=== PATIENT | male | born 1985 | race Caucasian/White ===

== ENCOUNTER 2019-03-20 23:54 | Inpatient (IN) | payer MEDICAID ==
[~2019-03-20] VITALS: Ht 177.8 cm; Wt 90.3 kg
[~2019-03-20 23:54] MED LIST: ARIP15TA2 PO; ARIP5TAB8 PO; DOCU-275 PO; GABA-531 PO; HYDR-4061 PO; LEVE500T53 PO; LEVO125 PO; OMEP20 PO; PHEN100C23 PO
[2019-03-21] MEDS ORDERED: GABA600T10 PO (00:07)
[2019-03-21] MEDS ORDERED: LIDOCAINE 5% TRANSDERMAL PATCH TD ONE (01:15)
[2019-03-21 02:05] LABS: BASOPHILS % (AUTO) 0.7 % (0.0-2.0); EOSINOPHILS % (AUTO) 4.5 % (1.0-6.0); HEMATOCRIT 38.6 % (41-53); HEMOGLOBIN 12.7 g/dL (13.5-17.5); LYMPHOCYTES # (AUTO) 2.4 K/uL (1.0-4.8); LYMPHOCYTES % (AUTO) 26.8 % (22.0-44.0); MEAN CORPUSCULAR HEMOGLOBIN 27.6 pg (26.0-34.0); MEAN CORPUSCULAR HGB CONC 32.9 G/dL (31.0-37.0); MEAN CORPUSCULAR VOLUME 84 fL (80-100); MONOCYTES # (AUTO) 0.7 K/uL (0.1-1.0); MONOCYTES % (AUTO) 7.6 % (2.0-9.0); NEUTROPHILS # (AUTO) 5.4 K/uL (1.8-7.7); NEUTROPHILS % (AUTO) 60.4 % (40.0-70.0); PLATELET COUNT (AUTO) 301 K/uL (150-450)
[2019-03-21 02:24] LABS: ALANINE AMINOTRANSFERASE 39 U/L (12-78); ALBUMIN 3.4 g/dL (3.4-5.0); ALKALINE PHOSPHATASE 103 U/L (46-116); ANION GAP 8 mmol/L (8-16); ASPARTATE AMINOTRANSFERASE 19 U/L (15-37); BILIRUBIN,TOTAL 0.3 mg/dL (0.1-1.0); CALCIUM, TOTAL 8.9 mg/dL (8.8-10.5); CARBON DIOXIDE 26 mmol/L (22-29); CHLORIDE 108 mmol/L (98-107); CREATININE 0.92 mg/dL (0.60-1.30); GLOMERULAR FILTR. RATE CALC > 60 mL/min (>60); GLUCOSE,RANDOM 118 mg/dL (70-110); POTASSIUM 4.3 mmol/L (3.5-5.1); SODIUM SERUM 142 mmol/L (136-145); TOTAL PROTEIN, SERUM 6.6 g/dL (6.4-8.2); UREA NITROGEN, BLOOD 22 mg/dL (7-18)
[2019-03-21] MEDS ORDERED: KETOROLAC TROMETHAMINE 30 MG/ML VIAL IM ONE (02:45)
[2019-03-21 02:55] LABS: SALICYLATE < 2.8 mg/dL (2.8-20.0)
[2019-03-21 03:00] LABS: AMPHET/METH SCREEN,URINE NEGATIVE (NEGATIVE); BARBITURATE SCREEN, URINE NEGATIVE (NEGATIVE); BENZODIAZEPINES SCREEN,URINE NEGATIVE (NEGATIVE); CANNABINOID SCREEN,URINE NEGATIVE (NEGATIVE); COCAINE SCREEN,URINE NEGATIVE (NEGATIVE); METHADONE SCREEN, URINE NEGATIVE (NEGATIVE); OPIATE SCREEN,URINE NEGATIVE (NEGATIVE)
[2019-03-21 03:08] LABS: PHENCYCLIDINE SCREEN,URINE NEGATIVE (NEGATIVE)
[2019-03-21 03:08] LABS: ACETAMINOPHEN < 2 mcg/mL (10-30)
[2019-03-21 16:04] VITALS: BP 147/83
[2019-03-21] MEDS: GABAPENTIN 300 MG CAPSULE PO SCH (17:32)
[2019-03-21] MEDS: BACITRACIN 28.4 GM OINTMENT TP SCH (17:32)
[2019-03-21] MEDS: -LIDODERM PATCH NOTE- MISC SCH (20:16)
[2019-03-21] MEDS: ZOLPIDEM TARTRATE 10 MG TABLET PO PRN (20:17)
[2019-03-22] MEDS: LEVOTHYROXINE SODIUM 125 MCG TABLET PO SCH (06:43)
[2019-03-22] MEDS: GABAPENTIN 300 MG CAPSULE PO SCH ×3 (09:17→16:38)
[2019-03-22 09:21] VITALS: BP 142/97
[2019-03-22] MEDS: LIDOCAINE 5% TRANSDERMAL PATCH TD SCH (09:24)
[2019-03-22] MEDS: BACITRACIN 28.4 GM OINTMENT TP SCH ×2 (09:25→16:38)
[2019-03-22 10:26] LABS: CHOL/HDL RATIO 2.5 (4.2-7.3); CHOLESTEROL 124 mg/dL (131-200); HDL CHOLESTEROL 49 mg/dL (40-60); LDL CHOL (CALC.) 63 mg/dL (0-130); TRIGLYCERIDES 58 mg/dL (15-150)
[2019-03-22 19:53] VITALS: BP 138/92
[2019-03-22] MEDS: -LIDODERM PATCH NOTE- MISC SCH (21:34)
[2019-03-23 02:25] VITALS: BP 138/85
[2019-03-23] MEDS: ZOLPIDEM TARTRATE 10 MG TABLET PO PRN ×2 (02:35→21:28)
[2019-03-23] MEDS: HALOPERIDOL 5 MG TABLET PO PRN (02:35)
[2019-03-23] MEDS: LEVOTHYROXINE SODIUM 125 MCG TABLET PO SCH (07:05)
[2019-03-23] MEDS: GABAPENTIN 300 MG CAPSULE PO SCH ×3 (08:28→16:23)
[2019-03-23] MEDS: ARIPiprazole 5 MG TABLET PO SCH (08:28)
[2019-03-23] MEDS: LIDOCAINE 5% TRANSDERMAL PATCH TD SCH (08:38)
[2019-03-23 08:45] VITALS: BP 127/79
[2019-03-23] MEDS: BACITRACIN 28.4 GM OINTMENT TP SCH ×2 (10:13→16:23)
[2019-03-23 16:25] VITALS: BP 124/78
[2019-03-23] MEDS: LORazepam 2 MG TABLET PO PRN (17:11)
[2019-03-23] MEDS: -LIDODERM PATCH NOTE- MISC SCH (20:09)
[2019-03-24] MEDS: LEVOTHYROXINE SODIUM 125 MCG TABLET PO SCH (06:33)
[2019-03-24] MEDS: GABAPENTIN 300 MG CAPSULE PO SCH ×3 (08:25→16:22)
[2019-03-24] MEDS: LIDOCAINE 5% TRANSDERMAL PATCH TD SCH (08:34)
[2019-03-24] MEDS: ARIPiprazole 5 MG TABLET PO SCH (08:36)
[2019-03-24] MEDS: LORazepam 2 MG TABLET PO PRN ×2 (08:36→18:25)
[2019-03-24 08:40] LABS: FREE T4 (FREE THYROXINE) 0.89 ng/dL (0.76-1.46); THYROID STIMULATING HORMONE 2.84 uIU/mL (0.36-3.74)
[2019-03-24] MEDS: BACITRACIN 28.4 GM OINTMENT TP SCH ×2 (09:26→16:22)
[2019-03-24 09:52] VITALS: BP 120/83
[2019-03-24 17:05] VITALS: BP 145/95
[2019-03-24] MEDS: HALOPERIDOL 5 MG TABLET PO PRN (18:25)
[2019-03-24] MEDS: -LIDODERM PATCH NOTE- MISC SCH (20:55)
[2019-03-24] MEDS ORDERED: LACTULOSE 20 GM/30 ML SOLUTION UDCUP PO PRN (21:30)
[2019-03-24] MEDS ORDERED: DOCUSATE SODIUM 250 MG CAPSULE PO PRN (21:30)
[2019-03-24] MEDS ORDERED: BISACODYL 5 MG EC TABLET PO PRN (21:30)
[2019-03-24] MEDS ORDERED: MAGNESIUM HYDROXIDE SUSPENSION 30 ML UDCUP PO PRN (21:30)
[2019-03-25] MEDS: TraMADol HCL 50 MG TABLET PO PRN ×4 (01:48→20:20)
[2019-03-25] MEDS: LEVOTHYROXINE SODIUM 125 MCG TABLET PO SCH (06:47)
[2019-03-25] MEDS: ARIPiprazole 5 MG TABLET PO SCH (08:05)
[2019-03-25] MEDS: BACITRACIN 28.4 GM OINTMENT TP SCH ×2 (08:06→16:57)
[2019-03-25] MEDS: GABAPENTIN 300 MG CAPSULE PO SCH ×3 (08:06→16:57)
[2019-03-25] MEDS: LORazepam 2 MG TABLET PO PRN (08:08)
[2019-03-25] MEDS: LIDOCAINE 5% TRANSDERMAL PATCH TD SCH (09:00)
[2019-03-25 09:38] VITALS: BP 158/98
[2019-03-25 14:10] VITALS: BP 129/88
[2019-03-25 17:53] VITALS: BP 121/71
[2019-03-25 20:05] VITALS: BP 124/74
[2019-03-25] MEDS: CLOTRIMAZOLE 1% 15 GM CREAM TP SCH (20:17)
[2019-03-25] MEDS: -LIDODERM PATCH NOTE- MISC SCH (20:18)
[2019-03-25] MEDS ORDERED: QUEtiapine FUMARATE 200 MG TABLET PO SCH (21:00)
[2019-03-26 05:14] VITALS: BP 109/66
[2019-03-26] MEDS: TraMADol HCL 50 MG TABLET PO PRN ×3 (05:19→18:32)
[2019-03-26] MEDS: LEVOTHYROXINE SODIUM 125 MCG TABLET PO SCH (06:48)
[2019-03-26] MEDS: ARIPiprazole 5 MG TABLET PO SCH (08:13)
[2019-03-26] MEDS: GABAPENTIN 400 MG CAPSULE PO SCH ×3 (08:13→16:11)
[2019-03-26] MEDS: DIVALPROEX SODIUM 500 MG DR TABLET PO SCH ×2 (08:17→16:24)
[2019-03-26] MEDS: LIDOCAINE 5% TRANSDERMAL PATCH TD SCH (08:19)
[2019-03-26] MEDS: CLOTRIMAZOLE 1% 15 GM CREAM TP SCH ×3 (08:37→16:41)
[2019-03-26] MEDS: BACITRACIN 28.4 GM OINTMENT TP SCH ×2 (08:37→16:11)
[2019-03-26] MEDS ORDERED: QUEtiapine FUMARATE 100 MG TABLET PO SCH (09:00)
[2019-03-26 16:42] VITALS: BP 148/78
[2019-03-26] MEDS: -LIDODERM PATCH NOTE- MISC SCH ×2 (20:14→20:49)
[2019-03-27] MEDS: LEVOTHYROXINE SODIUM 125 MCG TABLET PO SCH (06:46)
[2019-03-27] MEDS: BACITRACIN 28.4 GM OINTMENT TP SCH ×2 (09:00→16:44)
[2019-03-27] MEDS: CLOTRIMAZOLE 1% 15 GM CREAM TP SCH ×2 (09:00→17:53)
[2019-03-27] MEDS: LIDOCAINE 5% TRANSDERMAL PATCH TD SCH (09:00)
[2019-03-27] MEDS: GABAPENTIN 400 MG CAPSULE PO SCH ×3 (09:14→16:32)
[2019-03-27] MEDS: ARIPiprazole 15 MG TABLET PO SCH (09:14)
[2019-03-27 09:18] VITALS: BP 134/83
[2019-03-27] MEDS: TraMADol HCL 50 MG TABLET PO PRN ×3 (09:18→22:12)
[2019-03-27] MEDS ORDERED: LORazepam 2 MG/ML VIAL ONE (12:50)
[2019-03-27] MEDS ORDERED: DiphenhydrAMINE HCL 50 MG/ML VIAL IM ONE (13:00)
[2019-03-27] MEDS ORDERED: LORazepam 2 MG/ML VIAL IM ONE (13:00)
[2019-03-27] MEDS ORDERED: HALOPERIDOL LACTATE 5 MG/ML VIAL IM ONE (13:00)
[2019-03-27 15:50] VITALS: BP 147/84
[2019-03-27] MEDS: LORazepam 2 MG TABLET PO PRN (16:32)
[2019-03-27 16:49] VITALS: BP 147/84
[2019-03-27] MEDS: -LIDODERM PATCH NOTE- MISC SCH (20:30)
[2019-03-27] MEDS: ZOLPIDEM TARTRATE 10 MG TABLET PO PRN (22:12)
[2019-03-28] MEDS: ACETAMINOPHEN 500 MG TABLET PO PRN (01:28)
[2019-03-28] MEDS: TraMADol HCL 50 MG TABLET PO PRN ×4 (04:24→21:58)
[2019-03-28 04:33] VITALS: BP 135/76
[2019-03-28] MEDS: LEVOTHYROXINE SODIUM 125 MCG TABLET PO SCH (07:06)
[2019-03-28] MEDS: GABAPENTIN 400 MG CAPSULE PO SCH ×3 (08:42→16:38)
[2019-03-28] MEDS: ARIPiprazole 15 MG TABLET PO SCH (08:42)
[2019-03-28] MEDS: BACITRACIN 28.4 GM OINTMENT TP SCH ×2 (08:46→16:42)
[2019-03-28] MEDS: CLOTRIMAZOLE 1% 15 GM CREAM TP SCH ×2 (08:46→16:43)
[2019-03-28] MEDS: LIDOCAINE 5% TRANSDERMAL PATCH TD SCH (08:47)
[2019-03-28 10:00] VITALS: BP 109/70
[2019-03-28 15:51] VITALS: BP 150/108
[2019-03-28] MEDS: LORazepam 2 MG TABLET PO PRN (16:38)
[2019-03-28] MEDS: -LIDODERM PATCH NOTE- MISC SCH (22:34)
[2019-03-29 02:28] VITALS: BP 140/95
[2019-03-29] MEDS: ACETAMINOPHEN 500 MG TABLET PO PRN (02:32)
[2019-03-29 03:45] VITALS: BP 135/95
[2019-03-29] MEDS: TraMADol HCL 50 MG TABLET PO PRN ×4 (04:02→20:13)
[2019-03-29] MEDS: LEVOTHYROXINE SODIUM 125 MCG TABLET PO SCH (06:21)
[2019-03-29 08:01] VITALS: BP 138/90
[2019-03-29] MEDS: LIDOCAINE 5% TRANSDERMAL PATCH TD SCH (08:05)
[2019-03-29] MEDS: ARIPiprazole 15 MG TABLET PO SCH (08:07)
[2019-03-29] MEDS: BACITRACIN 28.4 GM OINTMENT TP SCH ×2 (08:07→16:52)
[2019-03-29] MEDS: LORazepam 2 MG TABLET PO PRN ×3 (08:07→17:21)
[2019-03-29] MEDS: GABAPENTIN 400 MG CAPSULE PO SCH ×3 (08:07→16:53)
[2019-03-29] MEDS: CLOTRIMAZOLE 1% 15 GM CREAM TP SCH ×2 (08:08→16:52)
[2019-03-29] MEDS ORDERED: BACI3.5O22 TP (14:50)
[2019-03-29] MEDS ORDERED: CLOT21CR TP (14:50)
[2019-03-29] MEDS: -LIDODERM PATCH NOTE- MISC SCH (16:52)
[2019-03-29 16:54] VITALS: BP 127/72
[2019-03-30 02:02] VITALS: BP 118/70
[2019-03-30] MEDS: TraMADol HCL 50 MG TABLET PO PRN ×3 (02:05→17:00)
[2019-03-30] MEDS: LEVOTHYROXINE SODIUM 125 MCG TABLET PO SCH (06:58)
[2019-03-30] MEDS: ARIPiprazole 15 MG TABLET PO SCH (07:59)
[2019-03-30] MEDS: CLOTRIMAZOLE 1% 15 GM CREAM TP SCH ×2 (08:00→16:35)
[2019-03-30] MEDS: GABAPENTIN 400 MG CAPSULE PO SCH ×3 (08:02→15:58)
[2019-03-30] MEDS: BACITRACIN 28.4 GM OINTMENT TP SCH ×2 (08:03→16:35)
[2019-03-30] MEDS: LIDOCAINE 5% TRANSDERMAL PATCH TD SCH (08:09)
[2019-03-30 16:05] VITALS: BP 145/90
[2019-03-30] MEDS ORDERED: GABA-533 PO (18:54)
[2019-03-30] MEDS ORDERED: ARIP15TA2 PO (18:54)
[2019-03-30] MEDS: -LIDODERM PATCH NOTE- MISC SCH (20:08)
[2019-03-30] MEDS: NICOTINE 14 MG/24 HOUR PATCH TD SCH (20:48)
[2019-03-30] MEDS: ACETAMINOPHEN 500 MG TABLET PO PRN (22:17)
[2019-03-31] MEDS: TraMADol HCL 50 MG TABLET PO PRN ×3 (01:02→16:15)
[2019-03-31 01:04] VITALS: BP 126/82
[2019-03-31] MEDS: LEVOTHYROXINE SODIUM 125 MCG TABLET PO SCH (06:51)
[2019-03-31] MEDS: LIDOCAINE 5% TRANSDERMAL PATCH TD SCH (09:00)
[2019-03-31] MEDS: GABAPENTIN 400 MG CAPSULE PO SCH ×3 (09:16→16:16)
[2019-03-31] MEDS: NICOTINE 14 MG/24 HOUR PATCH TD SCH (09:16)
[2019-03-31] MEDS: CLOTRIMAZOLE 1% 15 GM CREAM TP SCH ×2 (09:17→16:16)
[2019-03-31] MEDS: ARIPiprazole 15 MG TABLET PO SCH (09:17)
[2019-03-31] MEDS: BACITRACIN 28.4 GM OINTMENT TP SCH (09:18)
[2019-03-31 13:00] VITALS: BP 138/91
[2019-03-31 16:09] VITALS: BP 142/90
[2019-03-31] MEDS: -LIDODERM PATCH NOTE- MISC SCH (21:00)
[2019-03-31] MEDS: LORazepam 2 MG TABLET PO PRN (21:12)
[2019-04-01] MEDS: TraMADol HCL 50 MG TABLET PO PRN ×3 (01:34→14:40)
[2019-04-01] MEDS: LEVOTHYROXINE SODIUM 125 MCG TABLET PO SCH (06:59)
[2019-04-01] MEDS: ACETAMINOPHEN 500 MG TABLET PO PRN (07:00)
[2019-04-01] MEDS: ARIPiprazole 15 MG TABLET PO SCH (07:47)
[2019-04-01] MEDS: GABAPENTIN 400 MG CAPSULE PO SCH ×3 (07:47→16:30)
[2019-04-01] MEDS: HALOPERIDOL 5 MG TABLET PO PRN (07:47)
[2019-04-01] MEDS: LORazepam 2 MG TABLET PO PRN ×2 (07:47→15:40)
[2019-04-01] MEDS: NICOTINE 14 MG/24 HOUR PATCH TD SCH (07:54)
[2019-04-01] MEDS: CLOTRIMAZOLE 1% 15 GM CREAM TP SCH ×2 (07:54→16:30)
[2019-04-01] MEDS: LIDOCAINE 5% TRANSDERMAL PATCH TD SCH (07:54)
[2019-04-01 16:00] VITALS: BP 127/79
[2019-04-01] MEDS ORDERED: LIDO700A15 TD (17:18)
[2019-04-01] MEDS ORDERED: NICO1PAT49 TD (17:20)
== END 2019-04-01 18:00 | disposition home or self-care (01) | DRG 885 ==
LOC: EMS 23:54 → MERGE 03-21 13:24 → 3EC 03-21 13:24
PROVIDERS: ADMIT Psychiatry & Neurology Child & Adolescent Psychiatry; ATTEND Psychiatry & Neurology Psychiatry
DX: F25.9 Schizoaffective disorder, unspecified (principal); R45.851 Suicidal ideations; D64.9 Anemia, unspecified; E03.9 Hypothyroidism, unspecified; F15.10 Other stimulant abuse, uncomplicated; F90.9 Attention-deficit hyperactivity disorder, unspecified type; G89.29 Other chronic pain; M54.9 Dorsalgia, unspecified; Z90.49 Acquired absence of other specified parts of digestive tract; Z82.49 Family history of ischemic heart disease and other diseases of the circulatory system
CPT/HCPCS: 80074; 84439; 84443; 86804; G0480; G0481; J1200; J1630; J1885; J2060

== ENCOUNTER 2019-04-10 14:06 | Inpatient (IN) | payer MEDICAID, OTHER ==
[~2019-04-10] VITALS: Ht 175.3 cm; Wt 88.9 kg
[~2019-04-10 14:06] MED LIST changes: -ARIP5TAB8 PO; +GABA-533 PO; -HYDR-4061 PO; +LIDO700A15 TD; +NICO1PAT49 TD
[2019-04-10] MEDS ORDERED: OMEP20 PO (14:33)
[2019-04-10] MEDS ORDERED: PHEN50 PO (14:33)
[2019-04-10] MEDS ORDERED: GABA-531 PO (14:33)
[2019-04-10] MEDS ORDERED: ARIP10TA8 PO (14:33)
[2019-04-10] MEDS ORDERED: LEVE250T55 PO (14:33)
[2019-04-10 14:34] LABS: BASOPHILS % (AUTO) 0.6 % (0.0-2.0); EOSINOPHILS % (AUTO) 1.4 % (1.0-6.0); HEMATOCRIT 43.1 % (41-53); HEMOGLOBIN 14.3 g/dL (13.5-17.5); LYMPHOCYTES # (AUTO) 1.7 K/uL (1.0-4.8); LYMPHOCYTES % (AUTO) 16.9 % (22.0-44.0); MEAN CORPUSCULAR HEMOGLOBIN 27.6 pg (26.0-34.0); MEAN CORPUSCULAR HGB CONC 33.1 G/dL (31.0-37.0); MEAN CORPUSCULAR VOLUME 83 fL (80-100); MONOCYTES # (AUTO) 0.9 K/uL (0.1-1.0); MONOCYTES % (AUTO) 9.1 % (2.0-9.0); NEUTROPHILS # (AUTO) 7.2 K/uL (1.8-7.7); PLATELET COUNT (AUTO) 295 K/uL (150-450); RED BLOOD CELL COUNT(AUTO) 5.17 MIL/uL (4.50-5.90); RED CELL DISTRIBUTION WIDTH 14.8 % (11.5-14.5)
[2019-04-10 14:51] LABS: ANION GAP 10 mmol/L (8-16); CALCIUM, TOTAL 9.5 mg/dL (8.8-10.5); CARBON DIOXIDE 27 mmol/L (22-29); CHLORIDE 103 mmol/L (98-107); CREATININE 0.84 mg/dL (0.60-1.30); GLOMERULAR FILTR. RATE CALC > 60 mL/min (>60); GLUCOSE,RANDOM 94 mg/dL (70-110); POTASSIUM 3.9 mmol/L (3.5-5.1); SODIUM SERUM 140 mmol/L (136-145); UREA NITROGEN, BLOOD 21 mg/dL (7-18)
[2019-04-10 14:58] LABS: ALANINE AMINOTRANSFERASE 56 U/L (12-78); ALBUMIN 4.4 g/dL (3.4-5.0); ALKALINE PHOSPHATASE 118 U/L (46-116); ASPARTATE AMINOTRANSFERASE 39 U/L (15-37); BILIRUBIN,TOTAL 0.8 mg/dL (0.1-1.0); TOTAL PROTEIN, SERUM 7.8 g/dL (6.4-8.2)
[2019-04-10 15:54] LABS: PHENYTOIN (DILANTIN) < 0.5 mcg/mL (10.0-20.0)
[2019-04-10] MEDS ORDERED: ZOLPIDEM TARTRATE 10 MG TABLET PO PRN (17:15)
[2019-04-10] MEDS ORDERED: LORazepam 2 MG TABLET PO ONE (17:15)
[2019-04-10] MEDS ORDERED: HALOPERIDOL 5 MG TABLET PO PRN (17:15)
[2019-04-10] MEDS ORDERED: HALOPERIDOL 5 MG TABLET PO ONE (17:15)
[2019-04-10] MEDS ORDERED: PHENY100 PO (17:25)
[2019-04-10] MEDS ORDERED: GABA-533 PO (17:25)
[2019-04-10] MEDS ORDERED: ARIP15TA2 PO (17:25)
[2019-04-10] MEDS ORDERED: LEVE500T53 PO (17:25)
[2019-04-10] MEDS: DiphenhydrAMINE HCL 25 MG CAPSULE PO ONE ×2 (17:34→18:24)
[2019-04-10 21:07] VITALS: BP 124/79
[2019-04-10] MEDS ORDERED: IBUPROFEN 400 MG TABLET PO PRN (21:45)
[2019-04-10] MEDS: LevETIRAcetam 500 MG TABLET PO SCH (21:57)
[2019-04-10] MEDS: GABAPENTIN 400 MG CAPSULE PO SCH (21:57)
[2019-04-11] MEDS: ARIPiprazole 15 MG TABLET PO SCH (08:25)
[2019-04-11] MEDS: GABAPENTIN 400 MG CAPSULE PO SCH ×3 (08:30→16:31)
[2019-04-11] MEDS: PHENYTOIN 50 MG CHEWABLE TABLET PO SCH ×3 (08:33→17:50)
[2019-04-11] MEDS: LevETIRAcetam 500 MG TABLET PO SCH ×2 (08:33→16:31)
[2019-04-11] MEDS: LORazepam 2 MG TABLET PO PRN (16:31)
[2019-04-11 16:48] VITALS: BP 111/62
[2019-04-12 08:44] VITALS: BP 115/66
[2019-04-12] MEDS: ARIPiprazole 15 MG TABLET PO SCH (08:59)
[2019-04-12] MEDS: GABAPENTIN 400 MG CAPSULE PO SCH ×3 (08:59→16:08)
[2019-04-12] MEDS: PHENYTOIN 50 MG CHEWABLE TABLET PO SCH ×3 (09:00→16:08)
[2019-04-12] MEDS: LevETIRAcetam 500 MG TABLET PO SCH ×2 (09:00→16:09)
[2019-04-12] MEDS: LORazepam 2 MG TABLET PO PRN (16:08)
[2019-04-12] MEDS ORDERED: PHEN50 PO ×2 (16:51→16:52)
[2019-04-12 17:30] VITALS: BP 115/66
== END 2019-04-12 18:00 | disposition home or self-care (01) | DRG 885 ==
LOC: EMS 14:06 → EDBD 14:06 → B3A 18:15 → 3EC 18:15 → UNDOADMIN 18:15
PROVIDERS: ADMIT Psychiatry & Neurology Psychiatry; ATTEND Psychiatry & Neurology Psychiatry
DX: F25.9 Schizoaffective disorder, unspecified (principal); R45.851 Suicidal ideations; E03.9 Hypothyroidism, unspecified; Z88.8 Allergy status to other drugs, medicaments and biological substances; Z88.6 Allergy status to analgesic agent
CPT/HCPCS: 87081; G0480; G0482

== ENCOUNTER 2019-05-06 12:40 | Inpatient (IN) | payer MEDICAID, OTHER ==
[~2019-05-06] VITALS: Ht 177.8 cm; Wt 94.0 kg
[~2019-05-06 12:40] MED LIST changes: +PHEN50 PO
[2019-05-06 16:02] LABS: BASOPHILS % (AUTO) 0.8 % (0.0-2.0); HEMATOCRIT 41.6 % (41-53); HEMOGLOBIN 13.7 g/dL (13.5-17.5); LYMPHOCYTES % (AUTO) 14.8 % (22.0-44.0); MEAN CORPUSCULAR HEMOGLOBIN 27.8 pg (26.0-34.0); MEAN CORPUSCULAR HGB CONC 32.9 G/dL (31.0-37.0); MEAN CORPUSCULAR VOLUME 85 fL (80-100); MONOCYTES # (AUTO) 1.4 K/uL (0.1-1.0); MONOCYTES % (AUTO) 10.3 % (2.0-9.0); NEUTROPHILS # (AUTO) 9.5 K/uL (1.8-7.7); NEUTROPHILS % (AUTO) 70.1 % (40.0-70.0); PLATELET COUNT (AUTO) 274 K/uL (150-450); RED BLOOD CELL COUNT(AUTO) 4.92 MIL/uL (4.50-5.90)
[2019-05-06 16:10] LABS: ANION GAP 15 mmol/L (8-16); CARBON DIOXIDE 21 mmol/L (22-29); CHLORIDE 100 mmol/L (98-107); CREATININE 1.32 mg/dL (0.60-1.30); GLOMERULAR FILTR. RATE CALC > 60 mL/min (>60); GLUCOSE,RANDOM 83 mg/dL (70-110); POTASSIUM 3.4 mmol/L (3.5-5.1); SODIUM SERUM 136 mmol/L (136-145); UREA NITROGEN, BLOOD 19 mg/dL (7-18)
[2019-05-06 16:18] LABS: ALANINE AMINOTRANSFERASE 63 U/L (12-78); ALBUMIN 4.1 g/dL (3.4-5.0); ALKALINE PHOSPHATASE 100 U/L (46-116); ASPARTATE AMINOTRANSFERASE 44 U/L (15-37); BILIRUBIN,TOTAL 0.5 mg/dL (0.1-1.0); TOTAL PROTEIN, SERUM 7.6 g/dL (6.4-8.2)
[2019-05-06] MEDS ORDERED: HALOPERIDOL 5 MG TABLET PO PRN (19:30)
[2019-05-07 01:00] VITALS: BP 156/91
[2019-05-07] MEDS: LORazepam 2 MG TABLET PO PRN (01:33)
[2019-05-07] MEDS: ZOLPIDEM TARTRATE 10 MG TABLET PO PRN (01:33)
[2019-05-07] MEDS ORDERED: INFLUENZA VIRUS VACCINE QVS 2019-20 (3YR+)/PF 60 MCG/0.5 ML SYRINGE IM ONE (02:30)
[2019-05-07] MEDS ORDERED: POTASSIUM CHLORIDE 20 MEQ ER TABLET PO ONE (06:45)
[2019-05-07] MEDS ORDERED: ACETAMINOPHEN 325 MG TABLET PO PRN (06:45)
[2019-05-07] MEDS ORDERED: ONDANSETRON HCL 4 MG TABLET PO PRN (06:45)
[2019-05-07] MEDS ORDERED: CloNIDine HCL 0.1 MG TABLET PO PRN (06:45)
[2019-05-07] MEDS ORDERED: MAGNESIUM HYDROXIDE SUSPENSION 30 ML UDCUP PO PRN (06:45)
[2019-05-07] MEDS ORDERED: DOCUSATE SODIUM 100 MG CAPSULE PO PRN (06:45)
[2019-05-07] MEDS ORDERED: BACITRACIN 28.4 GM OINTMENT TP PRN (06:45)
[2019-05-07] MEDS ORDERED: OMEPRAZOLE 20 MG CAPSULE PO PRN (06:45)
[2019-05-07] MEDS ORDERED: BENZOCAINE/MENTHOL LOZENGE MM PRN (06:45)
[2019-05-07] MEDS ORDERED: ALBUTEROL SULFATE HFA 90 MCG/PUFF 8 GM INHALER IH PRN (06:45)
[2019-05-07] MEDS ORDERED: MAG HYDROX/AL HYDROX/SIMETH ES 30 ML SUSPENSION UDCUP PO PRN (06:45)
[2019-05-07] MEDS ORDERED: PETROLATUM,WHITE 28 GM JELLY TP PRN (06:45)
[2019-05-07] MEDS ORDERED: LOPERAMIDE HCL 2 MG CAPSULE PO PRN (06:45)
[2019-05-07] MEDS: IBUPROFEN 600 MG TABLET PO PRN (09:36)
[2019-05-07 16:07] VITALS: BP 137/71
[2019-05-07] MEDS ORDERED: HALOPERIDOL LACTATE 5 MG/ML VIAL ONE (16:21)
[2019-05-07] MEDS ORDERED: LORazepam 2 MG/ML VIAL ONE (16:21)
[2019-05-07] MEDS ORDERED: DiphenhydrAMINE HCL 50 MG/ML VIAL ONE (16:21)
[2019-05-07] MEDS ORDERED: HALOPERIDOL LACTATE 5 MG/ML VIAL IM ONE (16:30)
[2019-05-07] MEDS ORDERED: LORazepam 2 MG/ML VIAL IM ONE (16:30)
[2019-05-07] MEDS ORDERED: DiphenhydrAMINE HCL 50 MG/ML VIAL IM ONE (16:30)
[2019-05-08] MEDS: GABAPENTIN 400 MG CAPSULE PO SCH ×3 (08:02→16:20)
[2019-05-08] MEDS: ARIPiprazole 15 MG TABLET PO SCH ×3 (08:02→08:26)
[2019-05-08] MEDS: LevETIRAcetam 500 MG TABLET PO SCH ×4 (08:02→16:20)
[2019-05-08] MEDS: PHENYTOIN 100 MG/4 ML SUSPENSION UDCUP PO SCH ×5 (08:02→16:20)
[2019-05-08] MEDS: IBUPROFEN 600 MG TABLET PO PRN ×2 (08:05→19:50)
[2019-05-08 10:47] VITALS: BP 140/81
[2019-05-08 18:45] VITALS: BP 146/90
[2019-05-08 19:51] VITALS: BP 139/85
[2019-05-08] MEDS: LORazepam 2 MG TABLET PO PRN (20:48)
[2019-05-09] MEDS: LORazepam 2 MG TABLET PO PRN ×3 (08:14→23:59)
[2019-05-09] MEDS: LevETIRAcetam 500 MG TABLET PO SCH ×3 (08:14→17:15)
[2019-05-09] MEDS: GABAPENTIN 400 MG CAPSULE PO SCH ×3 (08:14→17:15)
[2019-05-09] MEDS: ARIPiprazole 15 MG TABLET PO SCH ×3 (08:15→15:00)
[2019-05-09] MEDS: PHENYTOIN 100 MG/4 ML SUSPENSION UDCUP PO SCH ×4 (08:15→17:16)
[2019-05-09 16:12] VITALS: BP 140/88
[2019-05-09] MEDS: IBUPROFEN 600 MG TABLET PO PRN (17:14)
[2019-05-09 17:16] VITALS: BP 135/84
[2019-05-09] MEDS: ZOLPIDEM TARTRATE 10 MG TABLET PO PRN (23:59)
[2019-05-10 00:05] VITALS: BP 154/76
[2019-05-10] MEDS: ARIPiprazole 15 MG TABLET PO SCH (08:27)
[2019-05-10] MEDS: GABAPENTIN 400 MG CAPSULE PO SCH ×2 (08:27→11:16)
[2019-05-10] MEDS: LevETIRAcetam 500 MG TABLET PO SCH (08:27)
[2019-05-10] MEDS: PHENYTOIN 100 MG/4 ML SUSPENSION UDCUP PO SCH ×2 (08:27→11:15)
[2019-05-10] MEDS ORDERED: ARIP15TA2 PO (10:57)
[2019-05-10] MEDS ORDERED: GABA-533 PO (10:57)
[2019-05-10] MEDS ORDERED: LEVE500T53 PO (10:57)
[2019-05-10] MEDS ORDERED: PHEN100C23 PO (10:58)
== END 2019-05-10 11:30 | disposition home or self-care (01) | DRG 885 ==
LOC: EMS 12:42 → 3EC 22:30
PROVIDERS: ADMIT Psychiatry & Neurology Psychiatry; ATTEND Psychiatry & Neurology Psychiatry
DX: F25.1 Schizoaffective disorder, depressive type (principal); R45.851 Suicidal ideations; E03.9 Hypothyroidism, unspecified; R56.9 Unspecified convulsions; Z79.899 Other long term (current) drug therapy; Z87.891 Personal history of nicotine dependence; Z23 Encounter for immunization
CPT/HCPCS: 90686; G0480; J1200; J1630; J2060

== ENCOUNTER 2019-06-17 10:58 | Emergency (ER) | payer MEDICAID, OTHER ==
[~2019-06-17] VITALS: Ht 177.8 cm; Wt 100.0 kg
[~2019-06-17 10:58] MED LIST changes: -DOCU-275 PO; -GABA-531 PO; -LEVO125 PO; -LIDO700A15 TD; -NICO1PAT49 TD; -OMEP20 PO; -PHEN50 PO
[2019-06-17 11:40] VITALS: BP 127/81
== END 2019-06-17 11:51 | disposition home or self-care (01) ==
LOC: EMS 10:58
DX: F25.9 Schizoaffective disorder, unspecified (principal); F32.9 Major depressive disorder, single episode, unspecified; E03.9 Hypothyroidism, unspecified

== ENCOUNTER 2020-10-02 23:24 | Inpatient (IN) | payer MEDICAID, OTHER ==
[~2020-10-02] VITALS: Ht 177.8 cm; Wt 101.5 kg
[~2020-10-02 23:24] MED LIST changes: -ARIP15TA2 PO; +ARIP15TA27 PO; +GABA-1201 PO; -GABA-533 PO
[2020-10-03] MEDS ORDERED: HALOPERIDOL LACTATE 5 MG/ML VIAL IM ONE (01:15)
[2020-10-03] MEDS ORDERED: LORazepam 2 MG/ML VIAL IM ONE (01:15)
[2020-10-03] MEDS ORDERED: DiphenhydrAMINE HCL 50 MG/ML VIAL IM ONE (01:15)
[2020-10-03 02:17] LABS: COVID AG,FIA SOURCE NASAL SWAB
[2020-10-03 02:18] LABS: BASOPHILS % (AUTO) 0.8 % (0.0-2.0); EOSINOPHILS % (AUTO) 5.1 % (1.0-6.0); HEMOGLOBIN 12.6 g/dL (13.5-17.5); LYMPHOCYTES # (AUTO) 1.9 K/uL (1.0-4.8); LYMPHOCYTES % (AUTO) 18.2 % (22.0-44.0); MEAN CORPUSCULAR HEMOGLOBIN 28.2 pg (26.0-34.0); MEAN CORPUSCULAR HGB CONC 33.1 G/dL (31.0-37.0); MEAN CORPUSCULAR VOLUME 85 fL (80-100); MONOCYTES # (AUTO) 0.8 K/uL (0.1-1.0); NEUTROPHILS % (AUTO) 67.9 % (40.0-70.0); PLATELET COUNT (AUTO) 269 K/uL (150-450); RED BLOOD CELL COUNT(AUTO) 4.45 MIL/uL (4.50-5.90); RED CELL DISTRIBUTION WIDTH 13.6 % (11.5-14.5)
[2020-10-03 02:27] LABS: ANION GAP 13 mmol/L (8-16); CALCIUM, TOTAL 8.4 mg/dL (8.8-10.5); CARBON DIOXIDE 27 mmol/L (22-29); CHLORIDE 108 mmol/L (98-107); CREATININE 0.75 mg/dL (0.60-1.30); GLOMERULAR FILTR. RATE CALC > 60 mL/min (>60); GLUCOSE,RANDOM 103 mg/dL (70-110); POTASSIUM 4.1 mmol/L (3.5-5.1); SODIUM SERUM 148 mmol/L (136-145); UREA NITROGEN, BLOOD 16 mg/dL (7-18)
[2020-10-03] MEDS ORDERED: LORazepam 2 MG TABLET PO PRN (02:30)
[2020-10-03] MEDS ORDERED: HALOPERIDOL 5 MG TABLET PO PRN (02:30)
[2020-10-03 02:35] LABS: ALANINE AMINOTRANSFERASE 43 U/L (12-78); ALBUMIN 3.4 g/dL (3.4-5.0); ALKALINE PHOSPHATASE 95 U/L (46-116); ASPARTATE AMINOTRANSFERASE 15 U/L (15-37); BILIRUBIN,TOTAL 0.2 mg/dL (0.1-1.0); TOTAL PROTEIN, SERUM 6.6 g/dL (6.4-8.2)
[2020-10-03 07:36] LABS: AMPHET/METH SCREEN,URINE NEGATIVE (NEGATIVE); BARBITURATE SCREEN, URINE NEGATIVE (NEGATIVE); BENZODIAZEPINES SCREEN,URINE NEGATIVE (NEGATIVE); CANNABINOID SCREEN,URINE NEGATIVE (NEGATIVE); COCAINE SCREEN,URINE NEGATIVE (NEGATIVE); METHADONE SCREEN, URINE NEGATIVE (NEGATIVE); OPIATE SCREEN,URINE NEGATIVE (NEGATIVE); PHENCYCLIDINE SCREEN,URINE NEGATIVE (NEGATIVE)
[2020-10-03 08:42] LABS: APPEARANCE,URINE CLEAR (CLEAR); BILIRUBIN,URINE NEGATIVE (NEGATIVE); GLUCOSE, URINE (UA) NEGATIVE (NEGATIVE); KETONES,URINE NEGATIVE (NEGATIVE); LEUKOCYTE ESTERASE ,URINE NEGATIVE (NEGATIVE); NITRATE,URINE NEGATIVE (NEGATIVE); OCCULT BLOOD,URINE NEGATIVE (NEGATIVE); PROTEIN,URINE NEGATIVE (NEGATIVE); UROBILINOGEN,URINE 0.2 mg/dL (<=1.0)
[2020-10-03 16:41] VITALS: BP 117/66
[2020-10-03] MEDS: GABAPENTIN 300 MG CAPSULE PO SCH (20:11)
[2020-10-04] MEDS: ZOLPIDEM TARTRATE 10 MG TABLET PO PRN (01:32)
[2020-10-04 04:22] VITALS: BP 124/78
[2020-10-04] MEDS ORDERED: ACETAMINOPHEN 325 MG TABLET PO PRN (06:00)
[2020-10-04] MEDS ORDERED: PETROLATUM,WHITE 28 GM JELLY TP PRN (06:00)
[2020-10-04] MEDS ORDERED: MAGNESIUM HYDROXIDE SUSPENSION 30 ML UDCUP PO PRN (06:00)
[2020-10-04] MEDS ORDERED: ALBUTEROL SULFATE HFA 90 MCG/PUFF 8 GM INHALER IH PRN (06:00)
[2020-10-04] MEDS ORDERED: BACITRACIN 28 GM OINTMENT TP PRN (06:00)
[2020-10-04] MEDS ORDERED: OMEPRAZOLE 20 MG CAPSULE PO PRN (06:00)
[2020-10-04] MEDS ORDERED: DOCUSATE SODIUM 100 MG CAPSULE PO PRN (06:00)
[2020-10-04] MEDS ORDERED: MAG HYDROX/AL HYDROX/SIMETH ES 30 ML SUSPENSION UDCUP PO PRN (06:00)
[2020-10-04] MEDS ORDERED: LOPERAMIDE HCL 2 MG CAPSULE PO PRN (06:00)
[2020-10-04] MEDS ORDERED: CloNIDine HCL 0.1 MG TABLET PO PRN (06:00)
[2020-10-04] MEDS ORDERED: ONDANSETRON HCL 4 MG TABLET PO PRN (06:00)
[2020-10-04] MEDS ORDERED: BENZOCAINE/MENTHOL LOZENGE PO PRN (06:00)
[2020-10-04] MEDS: GABAPENTIN 300 MG CAPSULE PO SCH ×3 (08:01→16:19)
[2020-10-04] MEDS: LevETIRAcetam 500 MG TABLET PO SCH ×3 (08:01→16:20)
[2020-10-04] MEDS: PHENYTOIN SODIUM 100 MG ER CAPSULE PO SCH ×4 (08:01→16:19)
[2020-10-04 08:02] LABS: CHOL/HDL RATIO 3.2 (4.2-7.3)
[2020-10-04 08:19] VITALS: BP 141/91
[2020-10-04] MEDS: IBUPROFEN 600 MG TABLET PO PRN ×2 (11:55→18:05)
[2020-10-04] MEDS: ACETAMINOPHEN 325 MG TABLET PO PRN (14:06)
[2020-10-04 16:13] VITALS: BP 122/82
[2020-10-05 00:11] VITALS: BP 137/90
[2020-10-05] MEDS: ZOLPIDEM TARTRATE 10 MG TABLET PO PRN (01:40)
[2020-10-05 07:41] LABS: ANION GAP 6 mmol/L (8-16); CALCIUM, TOTAL 8.7 mg/dL (8.8-10.5); CARBON DIOXIDE 27 mmol/L (22-29); CHLORIDE 106 mmol/L (98-107); CREATININE 0.75 mg/dL (0.60-1.30); GLOMERULAR FILTR. RATE CALC > 60 mL/min (>60); GLUCOSE,RANDOM 87 mg/dL (70-110); POTASSIUM 4.3 mmol/L (3.5-5.1); SODIUM SERUM 139 mmol/L (136-145); UREA NITROGEN, BLOOD 20 mg/dL (7-18)
[2020-10-05] MEDS: GABAPENTIN 300 MG CAPSULE PO SCH ×2 (08:39→12:26)
[2020-10-05] MEDS: PHENYTOIN SODIUM 100 MG ER CAPSULE PO SCH ×2 (08:42→12:29)
[2020-10-05] MEDS: LevETIRAcetam 500 MG TABLET PO SCH (08:43)
[2020-10-05] MEDS ORDERED: ARIPiprazole 15 MG TABLET PO SCH (09:00)
[2020-10-05] MEDS: ACETAMINOPHEN 325 MG TABLET PO PRN (10:03)
== END 2020-10-05 15:00 | disposition home or self-care (01) | DRG 750 ==
LOC: EMS 23:25 → B3A 10-03 04:24
PROVIDERS: ADMIT Psychiatry & Neurology Psychiatry; ATTEND Psychiatry & Neurology Psychiatry
DX: F25.9 Schizoaffective disorder, unspecified (principal); G40.909 Epilepsy, unspecified, not intractable, without status epilepticus; E03.9 Hypothyroidism, unspecified; Z20.822 Contact with and (suspected) exposure to COVID-19; F32.9 Major depressive disorder, single episode, unspecified; F41.9 Anxiety disorder, unspecified; G47.00 Insomnia, unspecified; K59.00 Constipation, unspecified
CPT/HCPCS: 80048; 80053; 80061; 81003; 85025; 99285; G0480; J1200; J1630; J2060

== ENCOUNTER 2020-11-08 13:19 | Inpatient (IN) | payer MEDICAID ==
[~2020-11-08] VITALS: Ht 175.3 cm; Wt 101.0 kg
[2020-11-08] MEDS ORDERED: ZOLPIDEM TARTRATE 10 MG TABLET PO PRN (14:00)
[2020-11-08 22:46] VITALS: BP 162/105
[2020-11-09 05:43] VITALS: BP 145/96
[2020-11-09 07:36] LABS: EOSINOPHILS % (AUTO) 6.3 % (1.0-6.0); HEMATOCRIT 40.1 % (41-53); HEMOGLOBIN 13.3 g/dL (13.5-17.5); LYMPHOCYTES # (AUTO) 1.6 K/uL (1.0-4.8); LYMPHOCYTES % (AUTO) 20.4 % (22.0-44.0); MEAN CORPUSCULAR HEMOGLOBIN 28.7 pg (26.0-34.0); MEAN CORPUSCULAR HGB CONC 33.1 G/dL (31.0-37.0); MEAN CORPUSCULAR VOLUME 87 fL (80-100); MONOCYTES # (AUTO) 0.8 K/uL (0.1-1.0); MONOCYTES % (AUTO) 9.6 % (2.0-9.0); NEUTROPHILS % (AUTO) 62.7 % (40.0-70.0); PLATELET COUNT (AUTO) 324 K/uL (150-450); RED BLOOD CELL COUNT(AUTO) 4.62 MIL/uL (4.50-5.90); RED CELL DISTRIBUTION WIDTH 14.5 % (11.5-14.5)
[2020-11-09 08:10] LABS: HEMOGLOBIN A1C 5.2 % (3.8-5.6)
[2020-11-09 08:13] LABS: ALANINE AMINOTRANSFERASE 64 U/L (12-78); ALBUMIN 3.6 g/dL (3.4-5.0); ALKALINE PHOSPHATASE 96 U/L (46-116); ANION GAP 11 mmol/L (8-16); ASPARTATE AMINOTRANSFERASE 21 U/L (15-37); BILIRUBIN,TOTAL 0.2 mg/dL (0.1-1.0); CALCIUM, TOTAL 8.8 mg/dL (8.8-10.5); CARBON DIOXIDE 24 mmol/L (22-29); CHLORIDE 104 mmol/L (98-107); CHOL/HDL RATIO 2.8 (4.2-7.3); CHOLESTEROL 146 mg/dL (131-200); CREATININE 0.79 mg/dL (0.60-1.30); FREE T4 (FREE THYROXINE) 1.03 ng/dL (0.76-1.46); GLOMERULAR FILTR. RATE CALC > 60 mL/min (>60); GLUCOSE,RANDOM 103 mg/dL (70-110); HDL CHOLESTEROL 52 mg/dL (40-60); LDL CHOL (CALC.) 66 mg/dL (0-130); POTASSIUM 4.1 mmol/L (3.5-5.1); SODIUM SERUM 139 mmol/L (136-145); THYROID STIMULATING HORMONE 1.68 uIU/mL (0.36-3.74); TOTAL PROTEIN, SERUM 7.4 g/dL (6.4-8.2); TRIGLYCERIDES 141 mg/dL (15-150); UREA NITROGEN, BLOOD 15 mg/dL (7-18)
[2020-11-09] MEDS: LevETIRAcetam 500 MG TABLET PO SCH ×2 (09:30→16:47)
[2020-11-09] MEDS: PHENYTOIN SODIUM 100 MG ER CAPSULE PO SCH ×3 (09:30→16:47)
[2020-11-09] MEDS: LORazepam 2 MG TABLET PO PRN ×2 (09:44→16:48)
[2020-11-09] MEDS ORDERED: ACETAMINOPHEN 325 MG TABLET PO PRN (09:45)
[2020-11-09] MEDS ORDERED: CloNIDine HCL 0.1 MG TABLET PO PRN (09:45)
[2020-11-09] MEDS ORDERED: ONDANSETRON HCL 4 MG TABLET PO PRN (09:45)
[2020-11-09] MEDS ORDERED: MAG HYDROX/AL HYDROX/SIMETH ES 30 ML SUSPENSION UDCUP PO PRN (09:45)
[2020-11-09] MEDS ORDERED: IBUPROFEN 400 MG TABLET PO PRN (09:45)
[2020-11-09] MEDS ORDERED: DOCUSATE SODIUM 100 MG CAPSULE PO PRN (09:45)
[2020-11-09] MEDS ORDERED: PETROLATUM,WHITE 28 GM JELLY TP PRN (09:45)
[2020-11-09] MEDS ORDERED: NICOTINE 14 MG/24 HOUR PATCH TD PRN (09:45)
[2020-11-09] MEDS ORDERED: MAGNESIUM HYDROXIDE SUSPENSION 30 ML UDCUP PO PRN (09:45)
[2020-11-09] MEDS ORDERED: LOPERAMIDE HCL 2 MG CAPSULE PO PRN (09:45)
[2020-11-09] MEDS ORDERED: GuaiFENesin/D-METHORPHAN [SUGAR-FREE] 200-20MG/10 ML SYRUP UDCUP PO PRN (09:45)
[2020-11-09] MEDS ORDERED: ALBUTEROL SULFATE HFA 90 MCG/PUFF 8 GM INHALER IH PRN (09:45)
[2020-11-09] MEDS: ARIPiprazole 15 MG TABLET PO SCH (10:47)
[2020-11-09] MEDS ORDERED: PHENYTOIN SODIUM 100 MG ER CAPSULE PO SCH (13:00)
[2020-11-09] MEDS ORDERED: GABAPENTIN 400 MG CAPSULE PO SCH (13:00)
[2020-11-09] MEDS: GABAPENTIN 400 MG CAPSULE PO SCH ×2 (13:04→16:47)
[2020-11-09 16:23] VITALS: BP 131/80
[2020-11-09] MEDS: HALOPERIDOL 5 MG TABLET PO PRN (16:47)
[2020-11-09] MEDS ORDERED: LevETIRAcetam 500 MG TABLET PO SCH (17:00)
[2020-11-10] MEDS: HALOPERIDOL 5 MG TABLET PO PRN ×3 (02:22→16:02)
[2020-11-10] MEDS: LORazepam 2 MG TABLET PO PRN ×3 (02:22→16:02)
[2020-11-10 06:05] VITALS: BP 140/84
[2020-11-10 08:17] VITALS: BP 121/78
[2020-11-10] MEDS: ARIPiprazole 15 MG TABLET PO SCH (08:47)
[2020-11-10] MEDS: PHENYTOIN SODIUM 100 MG ER CAPSULE PO SCH ×3 (08:50→16:01)
[2020-11-10] MEDS: LevETIRAcetam 500 MG TABLET PO SCH ×2 (08:50→16:01)
[2020-11-10] MEDS: GABAPENTIN 400 MG CAPSULE PO SCH ×3 (08:51→16:01)
[2020-11-10] MEDS ORDERED: LORazepam 2 MG/ML VIAL ONE (11:05)
[2020-11-10] MEDS ORDERED: DiphenhydrAMINE HCL 50 MG/ML VIAL ONE (11:05)
[2020-11-10] MEDS ORDERED: HALOPERIDOL LACTATE 5 MG/ML VIAL ONE ×2 (11:05→23:16)
[2020-11-10] MEDS ORDERED: LORazepam 2 MG/ML VIAL IM ONE ×2 (11:15→23:15)
[2020-11-10] MEDS ORDERED: HALOPERIDOL LACTATE 5 MG/ML VIAL IM ONE ×2 (11:15→23:15)
[2020-11-10] MEDS ORDERED: DiphenhydrAMINE HCL 50 MG/ML VIAL IM ONE ×2 (11:15→23:15)
[2020-11-10 16:10] VITALS: BP 119/63
[2020-11-11] MEDS: ARIPiprazole 15 MG TABLET PO SCH (08:32)
[2020-11-11] MEDS: GABAPENTIN 400 MG CAPSULE PO SCH ×2 (08:33→12:37)
[2020-11-11] MEDS: PHENYTOIN SODIUM 100 MG ER CAPSULE PO SCH ×2 (08:33→12:37)
[2020-11-11] MEDS: LevETIRAcetam 500 MG TABLET PO SCH (08:33)
== END 2020-11-11 19:26 | disposition left against medical advice (07) | DRG 750 ==
LOC: B3A 22:02
PROVIDERS: ADMIT Psychiatry & Neurology Child & Adolescent Psychiatry; ATTEND Psychiatry & Neurology Child & Adolescent Psychiatry
DX: F25.1 Schizoaffective disorder, depressive type (principal); G40.909 Epilepsy, unspecified, not intractable, without status epilepticus; D64.9 Anemia, unspecified; E03.9 Hypothyroidism, unspecified; F10.10 Alcohol abuse, uncomplicated; F41.9 Anxiety disorder, unspecified; G62.9 Polyneuropathy, unspecified; Z59.0 Homelessness
CPT/HCPCS: 80053; 80061; 83036; 84436; 84439; 84443; 85025; G0480; J1200; J1630; J2060

== ENCOUNTER 2020-11-08 15:26 | Emergency (ER) | payer MEDICAID ==
[~2020-11-08] VITALS: Ht 175.3 cm; Wt 101.0 kg
[2020-11-08 17:52] LABS: BASOPHILS % (AUTO) 0.7 % (0.0-2.0); HEMATOCRIT 41.8 % (41-53); HEMOGLOBIN 13.6 g/dL (13.5-17.5); LYMPHOCYTES % (AUTO) 20.8 % (22.0-44.0); MEAN CORPUSCULAR HEMOGLOBIN 28.5 pg (26.0-34.0); MEAN CORPUSCULAR HGB CONC 32.6 G/dL (31.0-37.0); MEAN CORPUSCULAR VOLUME 87 fL (80-100); MONOCYTES # (AUTO) 0.8 K/uL (0.1-1.0); MONOCYTES % (AUTO) 7.9 % (2.0-9.0); NEUTROPHILS # (AUTO) 6.3 K/uL (1.8-7.7); NEUTROPHILS % (AUTO) 65.6 % (40.0-70.0); PLATELET COUNT (AUTO) 345 K/uL (150-450); RED BLOOD CELL COUNT(AUTO) 4.78 MIL/uL (4.50-5.90); RED CELL DISTRIBUTION WIDTH 14.5 % (11.5-14.5)
[2020-11-08 18:04] LABS: ANION GAP 9 mmol/L (8-16); CALCIUM, TOTAL 9.2 mg/dL (8.8-10.5); CARBON DIOXIDE 25 mmol/L (22-29); CHLORIDE 106 mmol/L (98-107); GLOMERULAR FILTR. RATE CALC > 60 mL/min (>60); GLUCOSE,RANDOM 110 mg/dL (70-110); POTASSIUM 4.1 mmol/L (3.5-5.1); SODIUM SERUM 140 mmol/L (136-145); UREA NITROGEN, BLOOD 15 mg/dL (7-18)
[2020-11-08 18:08] LABS: ALANINE AMINOTRANSFERASE 74 U/L (12-78); ALBUMIN 3.9 g/dL (3.4-5.0); ALKALINE PHOSPHATASE 110 U/L (46-116); ASPARTATE AMINOTRANSFERASE 26 U/L (15-37); BILIRUBIN,TOTAL 0.2 mg/dL (0.1-1.0); TOTAL PROTEIN, SERUM 7.9 g/dL (6.4-8.2)
[2020-11-08 18:41] LABS: COVID AG,FIA SOURCE NASOPHARYNGEAL
[2020-11-08 20:10] VITALS: BP 126/68
== END 2020-11-08 22:06 | disposition home or self-care (01) ==
LOC: EMS 15:29
DX: F31.9 Bipolar disorder, unspecified (principal); M54.6 Pain in thoracic spine; M54.2 Cervicalgia; F20.9 Schizophrenia, unspecified; Z20.822 Contact with and (suspected) exposure to COVID-19
CPT/HCPCS: 36415; 72040; 80053; 85025; 87426; 99284; G0480

== ENCOUNTER 2020-11-11 18:30 | Emergency (ER) | payer MEDICAID ==
[~2020-11-11] VITALS: Ht 175.3 cm; Wt 104.5 kg
[2020-11-11 20:13] LABS: COVID AG,FIA SOURCE NASOPHARYNGEAL
[2020-11-11 20:52] LABS: BASOPHILS % (AUTO) 1.2 % (0.0-2.0); EOSINOPHILS % (AUTO) 4.8 % (1.0-6.0); HEMATOCRIT 41.8 % (41-53); HEMOGLOBIN 13.7 g/dL (13.5-17.5); LYMPHOCYTES # (AUTO) 1.9 K/uL (1.0-4.8); LYMPHOCYTES % (AUTO) 22.2 % (22.0-44.0); MEAN CORPUSCULAR HEMOGLOBIN 28.6 pg (26.0-34.0); MEAN CORPUSCULAR HGB CONC 32.9 G/dL (31.0-37.0); MEAN CORPUSCULAR VOLUME 87 fL (80-100); MONOCYTES # (AUTO) 0.7 K/uL (0.1-1.0); MONOCYTES % (AUTO) 7.8 % (2.0-9.0); NEUTROPHILS # (AUTO) 5.5 K/uL (1.8-7.7); PLATELET COUNT (AUTO) 299 K/uL (150-450); RED CELL DISTRIBUTION WIDTH 14.1 % (11.5-14.5)
[2020-11-11 21:11] LABS: ANION GAP 9 mmol/L (8-16); CARBON DIOXIDE 28 mmol/L (22-29); CHLORIDE 107 mmol/L (98-107); CREATININE 0.97 mg/dL (0.60-1.30); GLOMERULAR FILTR. RATE CALC > 60 mL/min (>60); GLUCOSE,RANDOM 104 mg/dL (70-110); POTASSIUM 3.9 mmol/L (3.5-5.1); SODIUM SERUM 144 mmol/L (136-145); UREA NITROGEN, BLOOD 18 mg/dL (7-18)
[2020-11-11 21:18] LABS: ALANINE AMINOTRANSFERASE 72 U/L (12-78); ALBUMIN 3.7 g/dL (3.4-5.0); ALKALINE PHOSPHATASE 107 U/L (46-116); ASPARTATE AMINOTRANSFERASE 32 U/L (15-37); BILIRUBIN,TOTAL 0.2 mg/dL (0.1-1.0); PHENYTOIN (DILANTIN) 2.5 mcg/mL (10.0-20.0); TOTAL PROTEIN, SERUM 7.5 g/dL (6.4-8.2)
[2020-11-11] MEDS ORDERED: DiphenhydrAMINE HCL 50 MG/ML VIAL IM ONE (22:15)
[2020-11-11] MEDS ORDERED: HALOPERIDOL LACTATE 5 MG/ML VIAL IM ONE (22:15)
[2020-11-11] MEDS ORDERED: ACETAMINOPHEN 325 MG TABLET PO ONE (22:15)
[2020-11-11] MEDS ORDERED: LORazepam 2 MG/ML VIAL IM ONE (22:15)
[2020-11-11 22:39] LABS: AMPHET/METH SCREEN,URINE NEGATIVE (NEGATIVE); BARBITURATE SCREEN, URINE NEGATIVE (NEGATIVE); BENZODIAZEPINES SCREEN,URINE NEGATIVE (NEGATIVE); CANNABINOID SCREEN,URINE NEGATIVE (NEGATIVE); COCAINE SCREEN,URINE NEGATIVE (NEGATIVE); METHADONE SCREEN, URINE NEGATIVE (NEGATIVE); OPIATE SCREEN,URINE NEGATIVE (NEGATIVE)
[2020-11-11 22:40] LABS: PHENCYCLIDINE SCREEN,URINE NEGATIVE (NEGATIVE)
[2020-11-12 06:00] VITALS: BP 126/82
== END 2020-11-12 08:40 | disposition home or self-care (01) ==
LOC: EMS 18:32
DX: F25.9 Schizoaffective disorder, unspecified (principal); Z20.822 Contact with and (suspected) exposure to COVID-19
CPT/HCPCS: 36415; 80053; 80185; 80307; 85025; 87426; 96372; 99285; G0480; J2060

== ENCOUNTER 2021-01-17 15:19 | Inpatient (IN) | payer MEDICAID, OTHER ==
[~2021-01-17] VITALS: Ht 177.8 cm; Wt 114.8 kg
[~2021-01-17 15:19] MED LIST changes: +LEVE500T20 PO; -LEVE500T53 PO
[2021-01-17 16:12] LABS: BASOPHILS % (AUTO) 0.7 % (0.0-2.0); EOSINOPHILS % (AUTO) 4.6 % (1.0-6.0); HEMATOCRIT 41.8 % (41-53); HEMOGLOBIN 13.8 g/dL (13.5-17.5); LYMPHOCYTES # (AUTO) 2.3 K/uL (1.0-4.8); LYMPHOCYTES % (AUTO) 23.8 % (22.0-44.0); MEAN CORPUSCULAR HEMOGLOBIN 27.8 pg (26.0-34.0); MEAN CORPUSCULAR VOLUME 84 fL (80-100); MONOCYTES # (AUTO) 0.6 K/uL (0.1-1.0); MONOCYTES % (AUTO) 6.6 % (2.0-9.0); NEUTROPHILS # (AUTO) 6.1 K/uL (1.8-7.7); NEUTROPHILS % (AUTO) 64.3 % (40.0-70.0); PLATELET COUNT (AUTO) 293 K/uL (150-450); RED BLOOD CELL COUNT(AUTO) 4.98 MIL/uL (4.50-5.90); RED CELL DISTRIBUTION WIDTH 13.2 % (11.5-14.5)
[2021-01-17 16:21] LABS: ANION GAP 10 mmol/L (8-16); CALCIUM, TOTAL 8.7 mg/dL (8.8-10.5); CARBON DIOXIDE 28 mmol/L (22-29); CHLORIDE 105 mmol/L (98-107); CREATININE 0.96 mg/dL (0.60-1.30); GLOMERULAR FILTR. RATE CALC > 60 mL/min (>60); GLUCOSE,RANDOM 108 mg/dL (70-110); POTASSIUM 3.9 mmol/L (3.5-5.1); SODIUM SERUM 143 mmol/L (136-145); UREA NITROGEN, BLOOD 13 mg/dL (7-18)
[2021-01-17 16:25] LABS: ALANINE AMINOTRANSFERASE 39 U/L (12-78); ALBUMIN 3.7 g/dL (3.4-5.0); ALKALINE PHOSPHATASE 122 U/L (46-116); ASPARTATE AMINOTRANSFERASE 16 U/L (15-37); BILIRUBIN,TOTAL 0.1 mg/dL (0.1-1.0); TOTAL PROTEIN, SERUM 7.2 g/dL (6.4-8.2)
[2021-01-17] MEDS ORDERED: HALOPERIDOL LACTATE 5 MG/ML VIAL IM ONE (17:15)
[2021-01-17] MEDS ORDERED: LORazepam 2 MG/ML VIAL IM ONE (17:15)
[2021-01-17] MEDS ORDERED: DiphenhydrAMINE HCL 50 MG/ML VIAL IM ONE (17:15)
[2021-01-17 18:28] LABS: AMPHET/METH SCREEN,URINE POSITIVE (NEGATIVE); BARBITURATE SCREEN, URINE NEGATIVE (NEGATIVE); BENZODIAZEPINES SCREEN,URINE NEGATIVE (NEGATIVE); CANNABINOID SCREEN,URINE NEGATIVE (NEGATIVE); COCAINE SCREEN,URINE NEGATIVE (NEGATIVE); METHADONE SCREEN, URINE NEGATIVE (NEGATIVE); OPIATE SCREEN,URINE NEGATIVE (NEGATIVE); PHENCYCLIDINE SCREEN,URINE NEGATIVE (NEGATIVE)
[2021-01-17 18:52] LABS: COVID AG,FIA SOURCE NASOPHARYNGEAL
[2021-01-17] MEDS ORDERED: INFLUENZA VIRUS VACCINE QVS 2021-22 (6MO+)/PF 60 MCG/0.5 ML SYRINGE IM. ONE (22:15)
[2021-01-18 09:04] VITALS: BP 90/69
[2021-01-18] MEDS: PHENYTOIN SODIUM 100 MG ER CAPSULE PO SCH ×3 (09:09→16:48)
[2021-01-18] MEDS: GABAPENTIN 400 MG CAPSULE PO SCH ×3 (09:09→16:48)
[2021-01-18] MEDS: LevETIRAcetam 500 MG TABLET PO SCH ×2 (09:09→16:48)
[2021-01-18] MEDS: LORazepam 2 MG TABLET PO PRN (09:10)
[2021-01-18] MEDS: ARIPiprazole 15 MG TABLET PO SCH (12:29)
[2021-01-18] MEDS ORDERED: MAG HYDROX/AL HYDROX/SIMETH ES 30 ML SUSPENSION UDCUP PO PRN (18:15)
[2021-01-18] MEDS ORDERED: ALBUTEROL SULFATE HFA 90 MCG/PUFF 8 GM INHALER IH PRN (18:15)
[2021-01-18] MEDS ORDERED: LOPERAMIDE HCL 2 MG CAPSULE PO PRN (18:15)
[2021-01-18] MEDS ORDERED: NICOTINE 14 MG/24 HOUR PATCH TD PRN (18:15)
[2021-01-18] MEDS ORDERED: GuaiFENesin/D-METHORPHAN [SUGAR-FREE] 200-20MG/10 ML SYRUP UDCUP PO PRN (18:15)
[2021-01-18] MEDS ORDERED: PETROLATUM,WHITE 28 GM JELLY TP PRN (18:15)
[2021-01-18] MEDS ORDERED: IBUPROFEN 400 MG TABLET PO PRN (18:15)
[2021-01-18] MEDS ORDERED: ACETAMINOPHEN 325 MG TABLET PO PRN (18:15)
[2021-01-18] MEDS ORDERED: ONDANSETRON HCL 4 MG TABLET PO PRN (18:15)
[2021-01-18] MEDS ORDERED: DOCUSATE SODIUM 100 MG CAPSULE PO PRN (18:15)
[2021-01-18] MEDS ORDERED: MAGNESIUM HYDROXIDE SUSPENSION 30 ML UDCUP PO PRN (18:15)
[2021-01-19] MEDS: LORazepam 2 MG TABLET PO PRN ×2 (07:43→16:09)
[2021-01-19] MEDS: GABAPENTIN 400 MG CAPSULE PO SCH ×3 (07:43→16:09)
[2021-01-19] MEDS: PHENYTOIN SODIUM 100 MG ER CAPSULE PO SCH ×3 (07:43→16:09)
[2021-01-19] MEDS: ARIPiprazole 15 MG TABLET PO SCH (07:43)
[2021-01-19] MEDS: LevETIRAcetam 500 MG TABLET PO SCH ×2 (07:43→16:09)
[2021-01-19 09:32] VITALS: BP 140/88
[2021-01-19 16:00] VITALS: BP 127/83
[2021-01-19] MEDS: ZOLPIDEM TARTRATE 10 MG TABLET PO PRN (20:10)
[2021-01-20] MEDS: LevETIRAcetam 500 MG TABLET PO SCH ×2 (07:30→16:40)
[2021-01-20] MEDS: PHENYTOIN SODIUM 100 MG ER CAPSULE PO SCH ×3 (07:30→16:40)
[2021-01-20] MEDS: ARIPiprazole 15 MG TABLET PO SCH (07:30)
[2021-01-20] MEDS: GABAPENTIN 400 MG CAPSULE PO SCH ×3 (07:30→16:40)
[2021-01-20] MEDS: LORazepam 2 MG TABLET PO PRN ×3 (07:30→21:24)
[2021-01-20] MEDS: CloNIDine HCL 0.1 MG TABLET PO PRN (07:32)
[2021-01-20 08:35] VITALS: BP 134/105
[2021-01-20 16:38] VITALS: BP 136/97
[2021-01-20] MEDS: TraMADol HCL 50 MG TABLET PO PRN (16:38)
[2021-01-20] MEDS: HALOPERIDOL 5 MG TABLET PO PRN (21:25)
[2021-01-21 00:20] VITALS: BP 139/92
[2021-01-21] MEDS: TraMADol HCL 50 MG TABLET PO PRN ×4 (00:25→20:53)
[2021-01-21] MEDS: HALOPERIDOL 5 MG TABLET PO PRN ×2 (07:35→16:15)
[2021-01-21] MEDS: LORazepam 2 MG TABLET PO PRN ×2 (07:35→16:16)
[2021-01-21] MEDS: ARIPiprazole 15 MG TABLET PO SCH (08:09)
[2021-01-21] MEDS: GABAPENTIN 400 MG CAPSULE PO SCH ×3 (08:09→16:31)
[2021-01-21] MEDS: LevETIRAcetam 500 MG TABLET PO SCH ×2 (08:09→16:31)
[2021-01-21] MEDS: PHENYTOIN SODIUM 100 MG ER CAPSULE PO SCH ×3 (08:10→16:31)
[2021-01-21 08:11] VITALS: BP 142/102
[2021-01-21 09:13] VITALS: BP 142/102
[2021-01-21 14:10] VITALS: BP 138/96
[2021-01-21 16:00] VITALS: BP 151/91
[2021-01-22] MEDS: ZOLPIDEM TARTRATE 10 MG TABLET PO PRN (02:21)
[2021-01-22] MEDS: TraMADol HCL 50 MG TABLET PO PRN ×3 (03:19→15:30)
[2021-01-22 03:20] VITALS: BP 142/79
[2021-01-22] MEDS: HALOPERIDOL 5 MG TABLET PO PRN ×2 (08:15→16:37)
[2021-01-22] MEDS: LORazepam 2 MG TABLET PO PRN ×2 (08:15→16:37)
[2021-01-22] MEDS: ARIPiprazole 15 MG TABLET PO SCH (08:15)
[2021-01-22] MEDS: GABAPENTIN 400 MG CAPSULE PO SCH ×3 (08:15→16:37)
[2021-01-22] MEDS: LevETIRAcetam 500 MG TABLET PO SCH ×2 (08:15→16:37)
[2021-01-22] MEDS: PHENYTOIN SODIUM 100 MG ER CAPSULE PO SCH ×3 (08:15→16:36)
[2021-01-22 09:30] VITALS: BP 136/78
[2021-01-22 15:21] VITALS: BP 146/98
[2021-01-22 16:00] VITALS: BP 158/94
[2021-01-22] MEDS ORDERED: HALOPERIDOL LACTATE 5 MG/ML VIAL ONE (21:06)
[2021-01-22] MEDS ORDERED: DiphenhydrAMINE HCL 50 MG/ML VIAL ONE (21:07)
[2021-01-22] MEDS ORDERED: HALOPERIDOL LACTATE 5 MG/ML VIAL IM ONE (21:15)
[2021-01-22] MEDS ORDERED: DiphenhydrAMINE HCL 50 MG/ML VIAL IM ONE (21:15)
[2021-01-22] MEDS ORDERED: LORazepam 2 MG/ML VIAL IM ONE (21:15)
[2021-01-23] MEDS: LORazepam 2 MG TABLET PO PRN ×3 (07:43→18:40)
[2021-01-23] MEDS: GABAPENTIN 400 MG CAPSULE PO SCH ×3 (07:43→16:18)
[2021-01-23] MEDS: LevETIRAcetam 500 MG TABLET PO SCH ×2 (07:43→16:18)
[2021-01-23] MEDS: ARIPiprazole 15 MG TABLET PO SCH (07:43)
[2021-01-23] MEDS: HALOPERIDOL 5 MG TABLET PO PRN ×3 (07:43→18:40)
[2021-01-23] MEDS: PHENYTOIN SODIUM 100 MG ER CAPSULE PO SCH ×3 (07:43→16:18)
[2021-01-23] MEDS: TraMADol HCL 50 MG TABLET PO PRN ×2 (07:49→16:18)
[2021-01-23 16:18] VITALS: BP 139/95
[2021-01-23 16:20] VITALS: BP 145/100
[2021-01-23] MEDS: ZOLPIDEM TARTRATE 10 MG TABLET PO PRN (20:47)
[2021-01-24] MEDS: LevETIRAcetam 500 MG TABLET PO SCH ×2 (07:23→16:12)
[2021-01-24] MEDS: LORazepam 2 MG TABLET PO PRN ×4 (07:23→22:35)
[2021-01-24] MEDS: HALOPERIDOL 5 MG TABLET PO PRN ×4 (07:23→22:35)
[2021-01-24] MEDS: PHENYTOIN SODIUM 100 MG ER CAPSULE PO SCH ×3 (07:23→16:12)
[2021-01-24] MEDS: ARIPiprazole 15 MG TABLET PO SCH (07:23)
[2021-01-24] MEDS: GABAPENTIN 400 MG CAPSULE PO SCH ×3 (07:23→16:12)
[2021-01-24] MEDS: TraMADol HCL 50 MG TABLET PO PRN ×3 (07:26→19:29)
[2021-01-24 07:36] LABS: COVID AG,FIA SOURCE NASAL SWAB
[2021-01-24 08:00] VITALS: BP 138/93
[2021-01-24 16:29] VITALS: BP 144/94
[2021-01-24] MEDS: ZOLPIDEM TARTRATE 10 MG TABLET PO PRN (20:05)
[2021-01-25 03:10] VITALS: BP 137/85
[2021-01-25] MEDS: TraMADol HCL 50 MG TABLET PO PRN ×2 (03:14→09:33)
[2021-01-25 08:01] VITALS: BP 152/115
[2021-01-25] MEDS: ARIPiprazole 15 MG TABLET PO SCH (08:03)
[2021-01-25] MEDS: GABAPENTIN 400 MG CAPSULE PO SCH ×2 (08:03→11:49)
[2021-01-25] MEDS: LORazepam 2 MG TABLET PO PRN (08:03)
[2021-01-25] MEDS: PHENYTOIN SODIUM 100 MG ER CAPSULE PO SCH ×2 (08:03→11:49)
[2021-01-25] MEDS: LevETIRAcetam 500 MG TABLET PO SCH (08:03)
[2021-01-25] MEDS: CloNIDine HCL 0.1 MG TABLET PO PRN (08:03)
[2021-01-25] MEDS: HALOPERIDOL 5 MG TABLET PO PRN (08:04)
== END 2021-01-25 12:45 | disposition home or self-care (01) | DRG 750 ==
LOC: EDUNIT# 15:19 → EMS 15:23 → 3EC 21:00
PROVIDERS: ADMIT Psychiatry & Neurology Child & Adolescent Psychiatry; ATTEND Psychiatry & Neurology Child & Adolescent Psychiatry
DX: F25.9 Schizoaffective disorder, unspecified (principal); G40.909 Epilepsy, unspecified, not intractable, without status epilepticus; R45.851 Suicidal ideations; E03.9 Hypothyroidism, unspecified; Z20.822 Contact with and (suspected) exposure to COVID-19; F19.10 Other psychoactive substance abuse, uncomplicated; E66.9 Obesity, unspecified; F10.10 Alcohol abuse, uncomplicated; G89.29 Other chronic pain; Z91.19 Patient's noncompliance with other medical treatment and regimen
CPT/HCPCS: 80053; 85025; 99285; G0480; J1200; J1630; J2060

== ENCOUNTER 2021-02-18 15:04 | Inpatient (IN) | payer MEDICAID, OTHER ==
[~2021-02-18] VITALS: Ht 177.8 cm; Wt 115.0 kg
[2021-02-18] MEDS ORDERED: LORazepam 2 MG TABLET PO ONE (16:15)
[2021-02-18] MEDS ORDERED: HALOPERIDOL 5 MG TABLET PO ONE (16:15)
[2021-02-18 16:21] LABS: COVID AG,FIA SOURCE NASOPHARYNGEAL
[2021-02-18 16:21] LABS: BASOPHILS % (AUTO) 1.3 % (0.0-2.0); HEMATOCRIT 43.5 % (41-53); HEMOGLOBIN 14.4 g/dL (13.5-17.5); LYMPHOCYTES # (AUTO) 1.7 K/uL (1.0-4.8); LYMPHOCYTES % (AUTO) 25.5 % (22.0-44.0); MEAN CORPUSCULAR HEMOGLOBIN 26.9 pg (26.0-34.0); MEAN CORPUSCULAR HGB CONC 33.1 G/dL (31.0-37.0); MEAN CORPUSCULAR VOLUME 81 fL (80-100); MONOCYTES # (AUTO) 1.1 K/uL (0.1-1.0); MONOCYTES % (AUTO) 16.5 % (2.0-9.0); NEUTROPHILS # (AUTO) 3.5 K/uL (1.8-7.7); NEUTROPHILS % (AUTO) 51.7 % (40.0-70.0); PLATELET COUNT (AUTO) 285 K/uL (150-450); RED BLOOD CELL COUNT(AUTO) 5.35 MIL/uL (4.50-5.90)
[2021-02-18 16:30] LABS: ANION GAP 9 mmol/L (8-16); CALCIUM, TOTAL 9.1 mg/dL (8.8-10.5); CARBON DIOXIDE 25 mmol/L (22-29); CHLORIDE 106 mmol/L (98-107); CREATININE 0.72 mg/dL (0.60-1.30); GLOMERULAR FILTR. RATE CALC > 60 mL/min (>60); GLUCOSE,RANDOM 136 mg/dL (70-110); POTASSIUM 3.7 mmol/L (3.5-5.1); SODIUM SERUM 140 mmol/L (136-145); UREA NITROGEN, BLOOD 12 mg/dL (7-18)
[2021-02-18 16:35] LABS: ALANINE AMINOTRANSFERASE 88 U/L (12-78); ALBUMIN 3.9 g/dL (3.4-5.0); ALKALINE PHOSPHATASE 116 U/L (46-116); ASPARTATE AMINOTRANSFERASE 79 U/L (15-37); BILIRUBIN,TOTAL 0.3 mg/dL (0.1-1.0); PHENYTOIN (DILANTIN) < 0.5 mcg/mL (10.0-20.0); TOTAL PROTEIN, SERUM 7.8 g/dL (6.4-8.2)
[2021-02-18] MEDS: DiphenhydrAMINE HCL 25 MG CAPSULE PO ONE ×2 (17:13→17:16)
[2021-02-18] MEDS ORDERED: KETOROLAC TROMETHAMINE 60 MG/2 ML VIAL IM ONE (19:00)
[2021-02-18] MEDS: LORazepam 2 MG TABLET PO PRN (19:20)
[2021-02-18] MEDS: HALOPERIDOL 5 MG TABLET PO PRN (19:20)
[2021-02-19 00:27] LABS: CHOL/HDL RATIO 2.3 (4.2-7.3); CHOLESTEROL 135 mg/dL (131-200); HDL CHOLESTEROL 58 mg/dL (40-60); LDL CHOL (CALC.) 61 mg/dL (0-130); TRIGLYCERIDES 80 mg/dL (15-150)
[2021-02-19] MEDS ORDERED: ALBUTEROL SULFATE HFA 90 MCG/PUFF 8 GM INHALER IH PRN (11:00)
[2021-02-19] MEDS ORDERED: MAGNESIUM HYDROXIDE SUSPENSION 30 ML UDCUP PO PRN (11:00)
[2021-02-19] MEDS ORDERED: ONDANSETRON HCL 4 MG TABLET PO PRN (11:00)
[2021-02-19] MEDS ORDERED: DOCUSATE SODIUM 100 MG CAPSULE PO PRN (11:00)
[2021-02-19] MEDS ORDERED: LOPERAMIDE HCL 2 MG CAPSULE PO PRN (11:00)
[2021-02-19] MEDS ORDERED: GuaiFENesin/D-METHORPHAN [SUGAR-FREE] 200-20MG/10 ML SYRUP UDCUP PO PRN (11:00)
[2021-02-19] MEDS ORDERED: PETROLATUM,WHITE 28 GM JELLY TP PRN (11:00)
[2021-02-19] MEDS ORDERED: MAG HYDROX/AL HYDROX/SIMETH ES 30 ML SUSPENSION UDCUP PO PRN (11:00)
[2021-02-19] MEDS ORDERED: NICOTINE 14 MG/24 HOUR PATCH TD PRN (11:00)
[2021-02-19] MEDS ORDERED: CloNIDine HCL 0.1 MG TABLET PO PRN (11:00)
[2021-02-19] MEDS: IBUPROFEN 400 MG TABLET PO PRN (12:02)
[2021-02-19] MEDS: ACETAMINOPHEN 325 MG TABLET PO PRN (15:01)
[2021-02-19] MEDS: HALOPERIDOL 5 MG TABLET PO PRN (19:51)
[2021-02-19] MEDS: LORazepam 2 MG TABLET PO PRN (19:51)
[2021-02-19] MEDS: PHENYTOIN SODIUM 100 MG ER CAPSULE PO SCH (20:15)
[2021-02-19] MEDS: LevETIRAcetam 500 MG TABLET PO SCH (20:26)
[2021-02-20 01:56] VITALS: BP 129/76
[2021-02-20] MEDS ORDERED: INFLUENZA VIRUS VACCINE QVS 2021-22 (6MO+)/PF 60 MCG/0.5 ML SYRINGE IM. ONE (03:45)
[2021-02-20] MEDS: PHENYTOIN SODIUM 100 MG ER CAPSULE PO SCH ×3 (08:03→16:05)
[2021-02-20] MEDS: LevETIRAcetam 500 MG TABLET PO SCH ×2 (08:03→16:05)
[2021-02-20] MEDS: IBUPROFEN 400 MG TABLET PO PRN (08:04)
[2021-02-20] MEDS: ARIPiprazole 15 MG TABLET PO SCH (10:30)
[2021-02-20] MEDS: GABAPENTIN 400 MG CAPSULE PO SCH ×3 (10:30→16:01)
[2021-02-20 10:44] VITALS: BP 145/108
[2021-02-20] MEDS: TraMADol HCL 50 MG TABLET PO PRN (16:04)
[2021-02-20] MEDS: HALOPERIDOL 5 MG TABLET PO PRN (19:22)
[2021-02-20] MEDS: LORazepam 2 MG TABLET PO PRN (19:22)
[2021-02-20] MEDS: ZOLPIDEM TARTRATE 10 MG TABLET PO PRN (20:45)
[2021-02-21 07:00] VITALS: BP 156/90
[2021-02-21] MEDS: TraMADol HCL 50 MG TABLET PO PRN ×2 (07:02→13:33)
[2021-02-21] MEDS: LevETIRAcetam 500 MG TABLET PO SCH ×2 (07:58→17:16)
[2021-02-21] MEDS: ARIPiprazole 15 MG TABLET PO SCH (07:59)
[2021-02-21] MEDS: PHENYTOIN SODIUM 100 MG ER CAPSULE PO SCH ×3 (07:59→17:16)
[2021-02-21] MEDS: GABAPENTIN 400 MG CAPSULE PO SCH ×3 (07:59→17:24)
[2021-02-21 09:20] VITALS: BP 129/79
[2021-02-21] MEDS: LORazepam 2 MG TABLET PO PRN (15:47)
[2021-02-21 16:52] VITALS: BP 123/91
[2021-02-22 01:49] VITALS: BP 132/89
[2021-02-22] MEDS: TraMADol HCL 50 MG TABLET PO PRN (01:49)
[2021-02-22] MEDS: PHENYTOIN SODIUM 100 MG ER CAPSULE PO SCH ×3 (08:45→16:42)
[2021-02-22] MEDS: LevETIRAcetam 500 MG TABLET PO SCH ×2 (08:45→16:43)
[2021-02-22] MEDS: GABAPENTIN 400 MG CAPSULE PO SCH ×3 (08:45→16:43)
[2021-02-22] MEDS: ARIPiprazole 15 MG TABLET PO SCH (08:46)
[2021-02-22 09:13] VITALS: BP 149/97
[2021-02-22 16:56] VITALS: BP 150/93
[2021-02-22] MEDS: LORazepam 2 MG TABLET PO PRN (17:30)
[2021-02-22] MEDS: HALOPERIDOL 5 MG TABLET PO PRN (17:30)
[2021-02-22] MEDS: ZOLPIDEM TARTRATE 10 MG TABLET PO PRN (20:00)
[2021-02-23] MEDS: HALOPERIDOL 5 MG TABLET PO PRN ×2 (08:32→17:52)
[2021-02-23] MEDS: LORazepam 2 MG TABLET PO PRN ×2 (08:32→17:52)
[2021-02-23] MEDS: LevETIRAcetam 500 MG TABLET PO SCH ×2 (08:33→16:37)
[2021-02-23] MEDS: ARIPiprazole 15 MG TABLET PO SCH (08:33)
[2021-02-23] MEDS: PHENYTOIN SODIUM 100 MG ER CAPSULE PO SCH ×3 (08:33→16:37)
[2021-02-23] MEDS: GABAPENTIN 400 MG CAPSULE PO SCH ×3 (08:33→16:37)
[2021-02-23 08:51] VITALS: BP 146/95
[2021-02-23 12:40] VITALS: BP 140/80
[2021-02-23] MEDS: TraMADol HCL 50 MG TABLET PO PRN ×2 (12:41→17:42)
[2021-02-23 16:35] VITALS: BP 131/88
[2021-02-23 17:42] VITALS: BP 135/89
[2021-02-23] MEDS: IBUPROFEN 400 MG TABLET PO PRN ×2 (17:53→19:53)
[2021-02-23 19:53] VITALS: BP 129/91
[2021-02-23] MEDS: ZOLPIDEM TARTRATE 10 MG TABLET PO PRN (20:39)
[2021-02-24] MEDS: HALOPERIDOL 5 MG TABLET PO PRN (00:56)
[2021-02-24] MEDS: LORazepam 2 MG TABLET PO PRN ×2 (00:57→17:30)
[2021-02-24] MEDS: GABAPENTIN 400 MG CAPSULE PO SCH ×3 (07:48→16:45)
[2021-02-24] MEDS: LevETIRAcetam 500 MG TABLET PO SCH ×2 (07:48→16:46)
[2021-02-24] MEDS: ARIPiprazole 15 MG TABLET PO SCH (07:49)
[2021-02-24] MEDS: PHENYTOIN SODIUM 100 MG ER CAPSULE PO SCH ×3 (07:49→16:45)
[2021-02-24 08:00] VITALS: BP 133/72
[2021-02-24] MEDS: TraMADol HCL 50 MG TABLET PO PRN ×2 (10:12→16:45)
[2021-02-24 16:25] VITALS: BP 147/97
[2021-02-24 16:45] VITALS: BP 149/99
[2021-02-24] MEDS: ZOLPIDEM TARTRATE 10 MG TABLET PO PRN (20:29)
[2021-02-25] MEDS: HALOPERIDOL 5 MG TABLET PO PRN ×3 (03:13→21:05)
[2021-02-25] MEDS: LORazepam 2 MG TABLET PO PRN ×3 (03:13→23:35)
[2021-02-25] MEDS: GABAPENTIN 400 MG CAPSULE PO SCH ×3 (07:58→16:17)
[2021-02-25] MEDS: PHENYTOIN SODIUM 100 MG ER CAPSULE PO SCH ×3 (07:58→16:17)
[2021-02-25] MEDS: LevETIRAcetam 500 MG TABLET PO SCH ×2 (07:58→16:17)
[2021-02-25] MEDS: ARIPiprazole 15 MG TABLET PO SCH (07:58)
[2021-02-25 09:36] LABS: COVID AG,FIA SOURCE NASAL SWAB
[2021-02-25 17:13] VITALS: BP 135/77
[2021-02-25] MEDS: TraMADol HCL 50 MG TABLET PO PRN (17:13)
[2021-02-25 18:13] VITALS: BP 138/76
[2021-02-25] MEDS: ZOLPIDEM TARTRATE 10 MG TABLET PO PRN (20:17)
[2021-02-26 00:21] VITALS: BP 143/81
[2021-02-26] MEDS: TraMADol HCL 50 MG TABLET PO PRN ×2 (07:42→16:22)
[2021-02-26] MEDS: LevETIRAcetam 500 MG TABLET PO SCH ×2 (07:42→16:23)
[2021-02-26] MEDS: GABAPENTIN 400 MG CAPSULE PO SCH ×3 (07:42→16:23)
[2021-02-26] MEDS: ARIPiprazole 15 MG TABLET PO SCH (07:42)
[2021-02-26] MEDS: PHENYTOIN SODIUM 100 MG ER CAPSULE PO SCH ×3 (07:42→16:23)
[2021-02-26 08:00] VITALS: BP 146/87
[2021-02-26 16:22] VITALS: BP 141/89
[2021-02-26 16:52] VITALS: BP 145/91
[2021-02-26] MEDS: LORazepam 2 MG TABLET PO PRN (20:00)
[2021-02-26] MEDS: HALOPERIDOL 5 MG TABLET PO PRN (20:00)
[2021-02-27] MEDS: TraMADol HCL 50 MG TABLET PO PRN ×2 (06:17→19:02)
[2021-02-27] MEDS: LevETIRAcetam 500 MG TABLET PO SCH ×2 (08:30→16:24)
[2021-02-27] MEDS: ARIPiprazole 15 MG TABLET PO SCH (08:30)
[2021-02-27] MEDS: HALOPERIDOL 5 MG TABLET PO PRN (08:30)
[2021-02-27] MEDS: PHENYTOIN SODIUM 100 MG ER CAPSULE PO SCH ×3 (08:30→16:24)
[2021-02-27] MEDS: LORazepam 2 MG TABLET PO PRN ×2 (08:30→16:24)
[2021-02-27] MEDS: GABAPENTIN 400 MG CAPSULE PO SCH ×3 (08:30→16:24)
[2021-02-27 09:17] VITALS: BP 139/77
[2021-02-27 16:37] VITALS: BP 111/97
[2021-02-27 16:39] VITALS: BP 111/97
[2021-02-27 19:02] VITALS: BP 115/89
[2021-02-27] MEDS: ZOLPIDEM TARTRATE 10 MG TABLET PO PRN (21:37)
[2021-02-28] MEDS: TraMADol HCL 50 MG TABLET PO PRN ×2 (04:44→17:46)
[2021-02-28 08:15] VITALS: BP 143/87
[2021-02-28] MEDS: LevETIRAcetam 500 MG TABLET PO SCH ×2 (08:37→17:46)
[2021-02-28] MEDS: PHENYTOIN SODIUM 100 MG ER CAPSULE PO SCH ×3 (08:37→17:46)
[2021-02-28] MEDS: ARIPiprazole 15 MG TABLET PO SCH (08:37)
[2021-02-28] MEDS: GABAPENTIN 400 MG CAPSULE PO SCH ×3 (08:37→17:46)
[2021-02-28] MEDS: HALOPERIDOL 5 MG TABLET PO PRN (08:38)
[2021-02-28] MEDS: IBUPROFEN 400 MG TABLET PO PRN (13:58)
[2021-02-28 17:46] VITALS: BP 139/77
[2021-02-28] MEDS: LORazepam 2 MG TABLET PO PRN (17:56)
[2021-02-28] MEDS: ZOLPIDEM TARTRATE 10 MG TABLET PO PRN (22:42)
[2021-03-01] MEDS: IBUPROFEN 400 MG TABLET PO PRN (02:38)
[2021-03-01 08:45] VITALS: BP 152/83
[2021-03-01] MEDS: ARIPiprazole 15 MG TABLET PO SCH (09:18)
[2021-03-01] MEDS: TraMADol HCL 50 MG TABLET PO PRN ×2 (09:18→16:28)
[2021-03-01] MEDS: PHENYTOIN SODIUM 100 MG ER CAPSULE PO SCH ×3 (09:18→16:28)
[2021-03-01] MEDS: GABAPENTIN 400 MG CAPSULE PO SCH ×3 (09:18→16:29)
[2021-03-01] MEDS: HALOPERIDOL 5 MG TABLET PO PRN (09:19)
[2021-03-01] MEDS: LevETIRAcetam 500 MG TABLET PO SCH ×2 (09:19→16:28)
[2021-03-01 16:25] VITALS: BP 140/96
[2021-03-01 16:28] VITALS: BP 144/89
[2021-03-01] MEDS: LORazepam 2 MG TABLET PO PRN (18:45)
[2021-03-01] MEDS: ZOLPIDEM TARTRATE 10 MG TABLET PO PRN (21:30)
[2021-03-02] MEDS ORDERED: HALOPERIDOL LACTATE 5 MG/ML VIAL IM ONE (00:45)
[2021-03-02] MEDS ORDERED: DiphenhydrAMINE HCL 50 MG/ML VIAL IM ONE (00:45)
[2021-03-02] MEDS ORDERED: LORazepam 2 MG/ML VIAL IM ONE (00:45)
[2021-03-02] MEDS: HALOPERIDOL 5 MG TABLET PO PRN (09:32)
[2021-03-02] MEDS: ARIPiprazole 15 MG TABLET PO SCH (09:32)
[2021-03-02] MEDS: GABAPENTIN 400 MG CAPSULE PO SCH ×3 (09:32→16:46)
[2021-03-02] MEDS: LevETIRAcetam 500 MG TABLET PO SCH ×2 (09:32→16:46)
[2021-03-02] MEDS: PHENYTOIN SODIUM 100 MG ER CAPSULE PO SCH ×3 (09:32→16:46)
[2021-03-02 11:51] LABS: COVID AG,FIA SOURCE NASAL SWAB
[2021-03-02 16:37] VITALS: BP 127/84
[2021-03-02 19:59] VITALS: BP 133/72
[2021-03-02] MEDS: IBUPROFEN 400 MG TABLET PO PRN (19:59)
[2021-03-02 21:37] VITALS: BP 129/78
[2021-03-02] MEDS: TraMADol HCL 50 MG TABLET PO PRN (21:37)
[2021-03-03 02:18] VITALS: BP 143/99
[2021-03-03] MEDS: ACETAMINOPHEN 325 MG TABLET PO PRN ×2 (02:20→23:02)
[2021-03-03] MEDS: ZOLPIDEM TARTRATE 10 MG TABLET PO PRN ×2 (02:33→21:30)
[2021-03-03] MEDS: ARIPiprazole 15 MG TABLET PO SCH (08:12)
[2021-03-03] MEDS: LORazepam 2 MG TABLET PO PRN ×3 (08:12→22:40)
[2021-03-03] MEDS: LevETIRAcetam 500 MG TABLET PO SCH ×2 (08:12→16:11)
[2021-03-03] MEDS: PHENYTOIN SODIUM 100 MG ER CAPSULE PO SCH ×3 (08:12→16:11)
[2021-03-03] MEDS: GABAPENTIN 400 MG CAPSULE PO SCH ×3 (08:12→16:11)
[2021-03-03 08:26] VITALS: BP 163/110
[2021-03-03 16:28] VITALS: BP 145/89
[2021-03-03] MEDS: TraMADol HCL 50 MG TABLET PO PRN (18:36)
[2021-03-04 06:34] VITALS: BP 150/88
[2021-03-04] MEDS: TraMADol HCL 50 MG TABLET PO PRN ×2 (06:37→19:21)
[2021-03-04] MEDS: GABAPENTIN 400 MG CAPSULE PO SCH ×3 (08:01→16:47)
[2021-03-04] MEDS: LevETIRAcetam 500 MG TABLET PO SCH ×2 (08:01→16:46)
[2021-03-04] MEDS: ARIPiprazole 15 MG TABLET PO SCH (08:01)
[2021-03-04] MEDS: PHENYTOIN SODIUM 100 MG ER CAPSULE PO SCH ×3 (08:02→16:46)
[2021-03-04 08:38] VITALS: BP 154/91
[2021-03-04] MEDS: IBUPROFEN 400 MG TABLET PO PRN (10:16)
[2021-03-04 16:00] VITALS: BP 150/95
[2021-03-04] MEDS: LORazepam 2 MG TABLET PO PRN ×2 (16:47→21:00)
[2021-03-04] MEDS: HALOPERIDOL 5 MG TABLET PO PRN (19:17)
[2021-03-04 19:20] VITALS: BP 148/90
[2021-03-04 20:08] VITALS: BP 147/94
[2021-03-04] MEDS: ZOLPIDEM TARTRATE 10 MG TABLET PO PRN (21:15)
[2021-03-05] MEDS: GABAPENTIN 400 MG CAPSULE PO SCH ×3 (08:13→16:40)
[2021-03-05] MEDS: LevETIRAcetam 500 MG TABLET PO SCH ×2 (08:13→16:40)
[2021-03-05] MEDS: PHENYTOIN SODIUM 100 MG ER CAPSULE PO SCH ×3 (08:13→16:40)
[2021-03-05] MEDS: HALOPERIDOL 5 MG TABLET PO PRN (08:14)
[2021-03-05] MEDS: ARIPiprazole 15 MG TABLET PO SCH (08:14)
[2021-03-05] MEDS: LORazepam 2 MG TABLET PO PRN ×2 (08:14→18:45)
[2021-03-05 08:27] LABS: COVID AG,FIA SOURCE NASAL SWAB
[2021-03-05 08:30] VITALS: BP 153/99
[2021-03-05] MEDS: TraMADol HCL 50 MG TABLET PO PRN ×2 (09:39→16:04)
[2021-03-05 16:00] VITALS: BP 148/84
[2021-03-05 16:04] VITALS: BP 148/84
== END 2021-03-06 08:00 | DRG 750 ==
LOC: EMS 15:13 → 3EC 02-20 00:28
PROVIDERS: ADMIT Psychiatry & Neurology Psychiatry; ATTEND Psychiatry & Neurology Child & Adolescent Psychiatry
DX: F25.0 Schizoaffective disorder, bipolar type (principal); G40.909 Epilepsy, unspecified, not intractable, without status epilepticus; E03.9 Hypothyroidism, unspecified; F10.10 Alcohol abuse, uncomplicated; F14.90 Cocaine use, unspecified, uncomplicated; F19.10 Other psychoactive substance abuse, uncomplicated; F99 Mental disorder, not otherwise specified; Z20.822 Contact with and (suspected) exposure to COVID-19; G89.29 Other chronic pain; Z59.00 Homelessness unspecified; Z91.14 Patient's other noncompliance with medication regimen
CPT/HCPCS: 80053; 80061; 80185; 83036; 85025; 87081; 99285; G0480; J1200; J1630; J1885; J2060

== ENCOUNTER 2021-03-07 11:54 | Emergency (ER) | payer MEDICAID, OTHER ==
[~2021-03-07] VITALS: Ht 177.8 cm; Wt 100.0 kg
[2021-03-07 12:57] VITALS: BP 155/86
[2021-03-07 14:47] LABS: BASOPHILS % (AUTO) 1.1 % (0.0-2.0); EOSINOPHILS % (AUTO) 4.3 % (1.0-6.0); HEMATOCRIT 42.2 % (41-53); HEMOGLOBIN 14.4 g/dL (13.5-17.5); LYMPHOCYTES % (AUTO) 18.8 % (22.0-44.0); MEAN CORPUSCULAR HEMOGLOBIN 27.8 pg (26.0-34.0); MEAN CORPUSCULAR HGB CONC 34.2 G/dL (31.0-37.0); MEAN CORPUSCULAR VOLUME 81 fL (80-100); MONOCYTES % (AUTO) 9.1 % (2.0-9.0); NEUTROPHILS # (AUTO) 7.1 K/uL (1.8-7.7); NEUTROPHILS % (AUTO) 66.7 % (40.0-70.0); PLATELET COUNT (AUTO) 309 K/uL (150-450); RED BLOOD CELL COUNT(AUTO) 5.18 MIL/uL (4.50-5.90); RED CELL DISTRIBUTION WIDTH 14.7 % (11.5-14.5)
[2021-03-07 15:02] LABS: ANION GAP 13 mmol/L (8-16); CALCIUM, TOTAL 9.2 mg/dL (8.8-10.5); CARBON DIOXIDE 23 mmol/L (22-29); CHLORIDE 105 mmol/L (98-107); CREATININE 0.91 mg/dL (0.60-1.30); GLOMERULAR FILTR. RATE CALC > 60 mL/min (>60); GLUCOSE,RANDOM 92 mg/dL (70-110); POTASSIUM 3.9 mmol/L (3.5-5.1); SODIUM SERUM 141 mmol/L (136-145); UREA NITROGEN, BLOOD 17 mg/dL (7-18)
[2021-03-07 15:08] LABS: ALANINE AMINOTRANSFERASE 86 U/L (12-78); ALBUMIN 4.2 g/dL (3.4-5.0); ALKALINE PHOSPHATASE 143 U/L (46-116); ASPARTATE AMINOTRANSFERASE 82 U/L (15-37); BILIRUBIN,TOTAL 0.4 mg/dL (0.1-1.0); TOTAL PROTEIN, SERUM 8.1 g/dL (6.4-8.2)
== END 2021-03-07 18:07 | disposition left against medical advice (07) ==
LOC: EDUNIT# 11:54 → EMS 12:07
DX: M54.9 Dorsalgia, unspecified (principal); Z53.21 Procedure and treatment not carried out due to patient leaving prior to being seen by health care provider
CPT/HCPCS: 36415; 80053; 85025; G0480

== ENCOUNTER 2021-03-08 12:44 | Emergency (ER) | payer OTHER ==
[~2021-03-08] VITALS: Ht 175.3 cm; Wt 91.8 kg
[2021-03-08 13:51] LABS: BASOPHILS % (AUTO) 0.2 % (0.0-2.0); EOSINOPHILS % (AUTO) 3.6 % (1.0-6.0); HEMATOCRIT 40.3 % (41-53); HEMOGLOBIN 13.5 g/dL (13.5-17.5); LYMPHOCYTES # (AUTO) 1.9 K/uL (1.0-4.8); LYMPHOCYTES % (AUTO) 23.2 % (22.0-44.0); MEAN CORPUSCULAR HEMOGLOBIN 27.5 pg (26.0-34.0); MEAN CORPUSCULAR HGB CONC 33.5 G/dL (31.0-37.0); MEAN CORPUSCULAR VOLUME 82 fL (80-100); MONOCYTES # (AUTO) 0.7 K/uL (0.1-1.0); MONOCYTES % (AUTO) 8.8 % (2.0-9.0); NEUTROPHILS # (AUTO) 5.4 K/uL (1.8-7.7); NEUTROPHILS % (AUTO) 64.2 % (40.0-70.0); PLATELET COUNT (AUTO) 317 K/uL (150-450); RED BLOOD CELL COUNT(AUTO) 4.91 MIL/uL (4.50-5.90); RED CELL DISTRIBUTION WIDTH 14.7 % (11.5-14.5)
[2021-03-08 13:59] LABS: ANION GAP 9 mmol/L (8-16); CALCIUM, TOTAL 8.9 mg/dL (8.8-10.5); CARBON DIOXIDE 25 mmol/L (22-29); CHLORIDE 107 mmol/L (98-107); CREATININE 0.87 mg/dL (0.60-1.30); GLOMERULAR FILTR. RATE CALC > 60 mL/min (>60); GLUCOSE,RANDOM 123 mg/dL (70-110); POTASSIUM 3.9 mmol/L (3.5-5.1); SODIUM SERUM 141 mmol/L (136-145); UREA NITROGEN, BLOOD 17 mg/dL (7-18)
[2021-03-08 14:04] LABS: ALANINE AMINOTRANSFERASE 86 U/L (12-78); ALBUMIN 4.1 g/dL (3.4-5.0); ALKALINE PHOSPHATASE 128 U/L (46-116); ASPARTATE AMINOTRANSFERASE 57 U/L (15-37); BILIRUBIN,TOTAL 0.3 mg/dL (0.1-1.0); TOTAL PROTEIN, SERUM 7.9 g/dL (6.4-8.2)
[2021-03-08 14:06] LABS: PHENYTOIN (DILANTIN) < 0.5 mcg/mL (10.0-20.0)
[2021-03-08 15:00] LABS: AMPHET/METH SCREEN,URINE NEGATIVE (NEGATIVE); BARBITURATE SCREEN, URINE NEGATIVE (NEGATIVE); BENZODIAZEPINES SCREEN,URINE NEGATIVE (NEGATIVE); CANNABINOID SCREEN,URINE NEGATIVE (NEGATIVE); COCAINE SCREEN,URINE NEGATIVE (NEGATIVE); METHADONE SCREEN, URINE NEGATIVE (NEGATIVE); OPIATE SCREEN,URINE NEGATIVE (NEGATIVE)
[2021-03-08] MEDS ORDERED: GABAPENTIN 400 MG CAPSULE PO ONE (15:00)
[2021-03-08 15:01] LABS: PHENCYCLIDINE SCREEN,URINE NEGATIVE (NEGATIVE)
[2021-03-08 16:14] VITALS: BP 161/87
== END 2021-03-08 16:44 | disposition home or self-care (01) ==
LOC: EMS 12:47
DX: F32.9 Major depressive disorder, single episode, unspecified (principal); R74.01 Elevation of levels of liver transaminase levels; F20.9 Schizophrenia, unspecified; Z79.899 Other long term (current) drug therapy
CPT/HCPCS: 36415; 80053; 80185; 80307; 85025; 99284; G0480

== ENCOUNTER 2021-03-17 15:29 | Inpatient (IN) | payer MEDICAID, OTHER ==
[~2021-03-17] VITALS: Ht 177.8 cm; Wt 113.0 kg
[2021-03-17] MEDS ORDERED: LORazepam 2 MG TABLET PO ONE (17:00)
[2021-03-17 17:18] LABS: BASOPHILS % (AUTO) 0.8 % (0.0-2.0); EOSINOPHILS % (AUTO) 5.1 % (1.0-6.0); HEMATOCRIT 43.4 % (41-53); HEMOGLOBIN 14.6 g/dL (13.5-17.5); LYMPHOCYTES # (AUTO) 1.9 K/uL (1.0-4.8); LYMPHOCYTES % (AUTO) 30.8 % (22.0-44.0); MEAN CORPUSCULAR HEMOGLOBIN 27.3 pg (26.0-34.0); MEAN CORPUSCULAR HGB CONC 33.6 G/dL (31.0-37.0); MEAN CORPUSCULAR VOLUME 81 fL (80-100); MONOCYTES # (AUTO) 0.8 K/uL (0.1-1.0); MONOCYTES % (AUTO) 13.1 % (2.0-9.0); NEUTROPHILS # (AUTO) 3.1 K/uL (1.8-7.7); NEUTROPHILS % (AUTO) 50.2 % (40.0-70.0); PLATELET COUNT (AUTO) 247 K/uL (150-450); RED BLOOD CELL COUNT(AUTO) 5.33 MIL/uL (4.50-5.90); RED CELL DISTRIBUTION WIDTH 14.7 % (11.5-14.5)
[2021-03-17 17:42] LABS: ANION GAP 11 mmol/L (8-16); CARBON DIOXIDE 24 mmol/L (22-29); CHLORIDE 103 mmol/L (98-107); CREATININE 0.88 mg/dL (0.60-1.30); GLOMERULAR FILTR. RATE CALC > 60 mL/min (>60); GLUCOSE,RANDOM 95 mg/dL (70-110); POTASSIUM 3.8 mmol/L (3.5-5.1); SODIUM SERUM 138 mmol/L (136-145); UREA NITROGEN, BLOOD 14 mg/dL (7-18)
[2021-03-17 17:47] LABS: ALANINE AMINOTRANSFERASE 70 U/L (12-78); ALBUMIN 4.1 g/dL (3.4-5.0); ALKALINE PHOSPHATASE 116 U/L (46-116); ASPARTATE AMINOTRANSFERASE 31 U/L (15-37); BILIRUBIN,TOTAL 0.3 mg/dL (0.1-1.0); TOTAL PROTEIN, SERUM 8.3 g/dL (6.4-8.2)
[2021-03-17] MEDS ORDERED: DiphenhydrAMINE HCL 50 MG/ML VIAL IM ONE (19:00)
[2021-03-17] MEDS ORDERED: LORazepam 2 MG/ML VIAL IM ONE (19:00)
[2021-03-17] MEDS ORDERED: HALOPERIDOL LACTATE 5 MG/ML VIAL IM ONE (19:00)
[2021-03-17 19:44] LABS: AMPHET/METH SCREEN,URINE POSITIVE (NEGATIVE); BARBITURATE SCREEN, URINE NEGATIVE (NEGATIVE); BENZODIAZEPINES SCREEN,URINE NEGATIVE (NEGATIVE); CANNABINOID SCREEN,URINE NEGATIVE (NEGATIVE); COCAINE SCREEN,URINE NEGATIVE (NEGATIVE); METHADONE SCREEN, URINE NEGATIVE (NEGATIVE); OPIATE SCREEN,URINE NEGATIVE (NEGATIVE)
[2021-03-17 19:45] LABS: PHENCYCLIDINE SCREEN,URINE NEGATIVE (NEGATIVE)
[2021-03-17 23:17] LABS: COVID AG,FIA SOURCE NASOPHARYNGEAL
[2021-03-18 02:00] LABS: CHOL/HDL RATIO 3.5 (4.2-7.3); CHOLESTEROL 175 mg/dL (131-200); HDL CHOLESTEROL 50 mg/dL (40-60); LDL CHOL (CALC.) 81 mg/dL (0-130); TRIGLYCERIDES 218 mg/dL (15-150)
[2021-03-18] MEDS ORDERED: ARIPiprazole 15 MG TABLET PO SCH (14:15)
[2021-03-18] MEDS ORDERED: PHENYTOIN SODIUM 100 MG ER CAPSULE PO SCH ×2 (14:15→16:00)
[2021-03-18] MEDS ORDERED: PHENY100 PO (14:25)
[2021-03-18] MEDS: LORazepam 2 MG TABLET PO PRN (14:31)
[2021-03-18] MEDS ORDERED: PHEN50 PO (14:33)
[2021-03-18] MEDS: PHENYTOIN 50 MG CHEWABLE TABLET PO SCH ×2 (15:13→20:34)
[2021-03-18] MEDS: GABAPENTIN 400 MG CAPSULE PO SCH ×2 (15:26→20:35)
[2021-03-18] MEDS ORDERED: LevETIRAcetam 500 MG TABLET PO SCH (21:00)
[2021-03-19 20:54] VITALS: BP 152/85
[2021-03-19] MEDS: GABAPENTIN 400 MG CAPSULE PO SCH (20:57)
[2021-03-19] MEDS: LevETIRAcetam 500 MG TABLET PO SCH (20:57)
[2021-03-19] MEDS: PHENYTOIN 50 MG CHEWABLE TABLET PO SCH (20:57)
[2021-03-19] MEDS: LORazepam 2 MG TABLET PO PRN (22:27)
[2021-03-19] MEDS: HALOPERIDOL 5 MG TABLET PO PRN (22:28)
[2021-03-20 06:08] VITALS: BP 102/62
[2021-03-20 07:22] VITALS: BP 110/68
[2021-03-20] MEDS: GABAPENTIN 400 MG CAPSULE PO SCH ×3 (08:39→20:37)
[2021-03-20] MEDS: PHENYTOIN 50 MG CHEWABLE TABLET PO SCH ×2 (08:39→20:38)
[2021-03-20] MEDS: LevETIRAcetam 500 MG TABLET PO SCH ×2 (08:40→20:37)
[2021-03-20] MEDS: LORazepam 2 MG TABLET PO PRN ×2 (12:16→20:37)
[2021-03-20 15:03] VITALS: BP 122/70
[2021-03-20 20:23] VITALS: BP 138/76
[2021-03-20] MEDS: HALOPERIDOL 5 MG TABLET PO PRN (20:37)
[2021-03-20] MEDS: ARIPiprazole 15 MG TABLET PO SCH (20:37)
[2021-03-21 04:52] VITALS: BP 102/62
[2021-03-21 08:18] VITALS: BP 113/66
[2021-03-21] MEDS: GABAPENTIN 400 MG CAPSULE PO SCH ×3 (08:19→20:06)
[2021-03-21] MEDS: LevETIRAcetam 500 MG TABLET PO SCH ×2 (08:19→20:05)
[2021-03-21] MEDS: PHENYTOIN 50 MG CHEWABLE TABLET PO SCH ×2 (08:19→20:05)
[2021-03-21] MEDS: LORazepam 2 MG TABLET PO PRN ×2 (15:30→20:05)
[2021-03-21 15:45] VITALS: BP 104/56
[2021-03-21] MEDS: HALOPERIDOL 5 MG TABLET PO PRN (20:05)
[2021-03-21] MEDS: ARIPiprazole 15 MG TABLET PO SCH (20:05)
[2021-03-21 21:10] VITALS: BP 124/77
[2021-03-22 05:43] VITALS: BP 118/70
[2021-03-22 08:00] VITALS: BP 125/86
[2021-03-22] MEDS: LevETIRAcetam 500 MG TABLET PO SCH ×2 (09:37→19:44)
[2021-03-22] MEDS: LORazepam 2 MG TABLET PO PRN ×2 (09:37→21:50)
[2021-03-22] MEDS: PHENYTOIN 50 MG CHEWABLE TABLET PO SCH ×2 (09:37→19:40)
[2021-03-22] MEDS: GABAPENTIN 400 MG CAPSULE PO SCH ×3 (09:37→19:40)
[2021-03-22 15:01] VITALS: BP 142/87
[2021-03-22] MEDS: LOPERAMIDE HCL 2 MG CAPSULE PO PRN (15:54)
[2021-03-22 19:00] VITALS: BP 148/115
[2021-03-22] MEDS: ARIPiprazole 15 MG TABLET PO SCH (19:39)
[2021-03-22] MEDS: ZOLPIDEM TARTRATE 10 MG TABLET PO PRN (19:40)
[2021-03-22 21:45] VITALS: BP 137/86
[2021-03-23] MEDS ORDERED: HALOPERIDOL LACTATE 5 MG/ML VIAL IM ONE (00:45)
[2021-03-23] MEDS ORDERED: DiphenhydrAMINE HCL 50 MG/ML VIAL IM ONE (00:45)
[2021-03-23] MEDS ORDERED: LORazepam 2 MG/ML VIAL IM ONE (00:45)
[2021-03-23] MEDS: PHENYTOIN 50 MG CHEWABLE TABLET PO SCH ×2 (08:01→21:55)
[2021-03-23] MEDS: LORazepam 2 MG TABLET PO PRN (08:01)
[2021-03-23] MEDS: GABAPENTIN 400 MG CAPSULE PO SCH ×3 (08:01→21:55)
[2021-03-23] MEDS: LevETIRAcetam 500 MG TABLET PO SCH ×2 (08:01→21:59)
[2021-03-23 08:22] VITALS: BP 135/109
[2021-03-23] MEDS: LOPERAMIDE HCL 2 MG CAPSULE PO PRN (13:58)
[2021-03-23 16:00] VITALS: BP 133/88
[2021-03-23 19:55] VITALS: BP 158/79
[2021-03-23] MEDS: DIVALPROEX SODIUM 500 MG DR TABLET PO SCH (21:55)
[2021-03-23] MEDS: ARIPiprazole 15 MG TABLET PO SCH (21:55)
[2021-03-24] MEDS: ZOLPIDEM TARTRATE 10 MG TABLET PO PRN ×2 (00:16→21:43)
[2021-03-24] MEDS: LORazepam 2 MG TABLET PO PRN ×2 (03:11→20:40)
[2021-03-24] MEDS: HALOPERIDOL 5 MG TABLET PO PRN ×2 (03:12→20:40)
[2021-03-24 08:25] VITALS: BP 137/98
[2021-03-24] MEDS: GABAPENTIN 400 MG CAPSULE PO SCH ×3 (08:56→20:40)
[2021-03-24] MEDS: PHENYTOIN 50 MG CHEWABLE TABLET PO SCH ×2 (08:56→20:40)
[2021-03-24] MEDS: LOPERAMIDE HCL 2 MG CAPSULE PO PRN (08:56)
[2021-03-24] MEDS: LevETIRAcetam 500 MG TABLET PO SCH ×2 (08:56→20:40)
[2021-03-24] MEDS: DIVALPROEX SODIUM 500 MG DR TABLET PO SCH ×2 (08:56→20:40)
[2021-03-24 16:08] VITALS: BP 157/98
[2021-03-24 19:39] VITALS: BP 126/83
[2021-03-24] MEDS: ARIPiprazole 15 MG TABLET PO SCH (20:40)
[2021-03-25 04:46] VITALS: BP 124/71
[2021-03-25 08:14] VITALS: BP 126/81
[2021-03-25] MEDS: DIVALPROEX SODIUM 500 MG DR TABLET PO SCH ×2 (09:08→19:37)
[2021-03-25] MEDS: LevETIRAcetam 500 MG TABLET PO SCH ×2 (09:08→19:36)
[2021-03-25] MEDS: GABAPENTIN 400 MG CAPSULE PO SCH ×3 (09:08→19:37)
[2021-03-25] MEDS: PHENYTOIN 50 MG CHEWABLE TABLET PO SCH ×2 (09:09→19:37)
[2021-03-25] MEDS: LOPERAMIDE HCL 2 MG CAPSULE PO PRN (13:57)
[2021-03-25 15:54] VITALS: BP 147/105
[2021-03-25] MEDS: LORazepam 2 MG TABLET PO PRN (18:38)
[2021-03-25 19:35] VITALS: BP 143/99
[2021-03-25] MEDS: ZOLPIDEM TARTRATE 10 MG TABLET PO PRN (19:36)
[2021-03-25] MEDS: HALOPERIDOL 5 MG TABLET PO PRN (19:36)
[2021-03-25] MEDS: ARIPiprazole 15 MG TABLET PO SCH (19:37)
[2021-03-26] VITALS (7 sets, daily range): BP systolic 111–142; BP diastolic 67–105
[2021-03-26] MEDS: GABAPENTIN 400 MG CAPSULE PO SCH ×3 (08:47→20:23)
[2021-03-26] MEDS: DIVALPROEX SODIUM 500 MG DR TABLET PO SCH ×2 (08:47→20:23)
[2021-03-26] MEDS: PHENYTOIN 50 MG CHEWABLE TABLET PO SCH ×2 (08:47→20:23)
[2021-03-26] MEDS: LevETIRAcetam 500 MG TABLET PO SCH ×2 (08:47→20:23)
[2021-03-26] MEDS: ACETAMINOPHEN 325 MG TABLET PO PRN ×2 (12:39→20:32)
[2021-03-26] MEDS: ARIPiprazole 15 MG TABLET PO SCH (20:23)
[2021-03-26] MEDS: ZOLPIDEM TARTRATE 10 MG TABLET PO PRN (20:29)
[2021-03-26] MEDS: HALOPERIDOL 5 MG TABLET PO PRN (20:29)
[2021-03-26] MEDS: LOPERAMIDE HCL 2 MG CAPSULE PO PRN (20:31)
[2021-03-27] MEDS: ACETAMINOPHEN 325 MG TABLET PO PRN (03:23)
[2021-03-27] MEDS: LORazepam 2 MG TABLET PO PRN (03:23)
[2021-03-27] MEDS: HALOPERIDOL 5 MG TABLET PO PRN (03:23)
[2021-03-27 04:06] VITALS: BP 125/80
[2021-03-27 07:34] VITALS: BP 110/63
[2021-03-27] MEDS: GABAPENTIN 400 MG CAPSULE PO SCH (09:19)
[2021-03-27] MEDS: DIVALPROEX SODIUM 500 MG DR TABLET PO SCH (09:19)
[2021-03-27] MEDS: PHENYTOIN 50 MG CHEWABLE TABLET PO SCH (09:19)
[2021-03-27] MEDS: LevETIRAcetam 500 MG TABLET PO SCH (09:19)
[2021-03-27] MEDS ORDERED: DIVA-112 PO (14:08)
== END 2021-03-27 13:00 | disposition home or self-care (01) | DRG 750 ==
LOC: EMS 15:29 → 6N 03-19 17:44
PROVIDERS: ADMIT Psychiatry & Neurology Psychiatry; ATTEND Internal Medicine
DX: F25.0 Schizoaffective disorder, bipolar type (principal); U07.1 COVID-19; G40.909 Epilepsy, unspecified, not intractable, without status epilepticus; Z91.14 Patient's other noncompliance with medication regimen; E03.9 Hypothyroidism, unspecified; F15.10 Other stimulant abuse, uncomplicated; E66.9 Obesity, unspecified; F25.9 Schizoaffective disorder, unspecified; F32.A Depression, unspecified; F41.9 Anxiety disorder, unspecified; Z91.19 Patient's noncompliance with other medical treatment and regimen; Z68.35 Body mass index [BMI] 35.0-35.9, adult; Z79.899 Other long term (current) drug therapy
CPT/HCPCS: 80053; 80061; 85025; 99291; G0480; J1200; J1630; J2060

== ENCOUNTER 2021-03-31 11:10 | Emergency (ER) | payer OTHER ==
[~2021-03-31] VITALS: Ht 175.3 cm; Wt 100.0 kg
[~2021-03-31 11:10] MED LIST changes: +DIVA-112 PO; -PHEN100C23 PO; +PHEN50 PO
[2021-03-31 12:57] LABS: BASOPHILS % (AUTO) 1.1 % (0.0-2.0); EOSINOPHILS % (AUTO) 2.5 % (1.0-6.0); HEMATOCRIT 43.4 % (41-53); HEMOGLOBIN 14.7 g/dL (13.5-17.5); LYMPHOCYTES # (AUTO) 1.7 K/uL (1.0-4.8); LYMPHOCYTES % (AUTO) 21.4 % (22.0-44.0); MEAN CORPUSCULAR HEMOGLOBIN 27.6 pg (26.0-34.0); MEAN CORPUSCULAR HGB CONC 33.9 G/dL (31.0-37.0); MEAN CORPUSCULAR VOLUME 82 fL (80-100); MONOCYTES # (AUTO) 0.5 K/uL (0.1-1.0); MONOCYTES % (AUTO) 6.7 % (2.0-9.0); NEUTROPHILS # (AUTO) 5.6 K/uL (1.8-7.7); NEUTROPHILS % (AUTO) 68.3 % (40.0-70.0); PLATELET COUNT (AUTO) 314 K/uL (150-450); RED BLOOD CELL COUNT(AUTO) 5.32 MIL/uL (4.50-5.90); RED CELL DISTRIBUTION WIDTH 14.9 % (11.5-14.5)
[2021-03-31 13:05] LABS: ANION GAP 8 mmol/L (8-16); CALCIUM, TOTAL 9.3 mg/dL (8.8-10.5); CARBON DIOXIDE 29 mmol/L (22-29); CHLORIDE 104 mmol/L (98-107); CREATININE 0.91 mg/dL (0.60-1.30); GLOMERULAR FILTR. RATE CALC > 60 mL/min (>60); GLUCOSE,RANDOM 117 mg/dL (70-110); POTASSIUM 4.1 mmol/L (3.5-5.1); SODIUM SERUM 141 mmol/L (136-145); UREA NITROGEN, BLOOD 18 mg/dL (7-18)
[2021-03-31 13:11] LABS: ALANINE AMINOTRANSFERASE 84 U/L (12-78); ALBUMIN 3.8 g/dL (3.4-5.0); ALKALINE PHOSPHATASE 118 U/L (46-116); ASPARTATE AMINOTRANSFERASE 25 U/L (15-37); BILIRUBIN,TOTAL 0.2 mg/dL (0.1-1.0); TOTAL PROTEIN, SERUM 7.7 g/dL (6.4-8.2)
[2021-03-31 13:30] LABS: AMPHET/METH SCREEN,URINE NEGATIVE (NEGATIVE); BARBITURATE SCREEN, URINE NEGATIVE (NEGATIVE); BENZODIAZEPINES SCREEN,URINE NEGATIVE (NEGATIVE); CANNABINOID SCREEN,URINE NEGATIVE (NEGATIVE); COCAINE SCREEN,URINE NEGATIVE (NEGATIVE); METHADONE SCREEN, URINE NEGATIVE (NEGATIVE); OPIATE SCREEN,URINE NEGATIVE (NEGATIVE)
[2021-03-31 13:40] LABS: PHENCYCLIDINE SCREEN,URINE NEGATIVE (NEGATIVE)
[2021-03-31 14:30] LABS: VALPROIC ACID < 3 mcg/mL (50-100)
[2021-03-31] MEDS ORDERED: ACETAMINOPHEN 325 MG TABLET PO ONE (14:45)
[2021-03-31] MEDS ORDERED: LIDOCAINE 5% TRANSDERMAL PATCH TD ONE (14:45)
[2021-03-31] MEDS ORDERED: KETOROLAC TROMETHAMINE 10 MG TABLET PO ONE (14:45)
[2021-03-31 15:19] VITALS: BP 128/87
== END 2021-03-31 15:22 | disposition home or self-care (01) ==
LOC: EMS 11:14
DX: M54.50 Low back pain, unspecified (principal); F20.9 Schizophrenia, unspecified; Z79.899 Other long term (current) drug therapy
CPT/HCPCS: 36415; 80053; 80164; 80307; 85025; 99284; G0480

== ENCOUNTER 2021-04-03 15:38 | Inpatient (IN) | payer MEDICAID, OTHER ==
[~2021-04-03] VITALS: Ht 177.8 cm; Wt 118.6 kg
[2021-04-03 20:45] LABS: BASOPHILS % (AUTO) 0.8 % (0.0-2.0); EOSINOPHILS % (AUTO) 2.8 % (1.0-6.0); HEMATOCRIT 42.7 % (41-53); HEMOGLOBIN 14.3 g/dL (13.5-17.5); LYMPHOCYTES # (AUTO) 1.6 K/uL (1.0-4.8); LYMPHOCYTES % (AUTO) 17.8 % (22.0-44.0); MEAN CORPUSCULAR HEMOGLOBIN 27.5 pg (26.0-34.0); MEAN CORPUSCULAR HGB CONC 33.6 G/dL (31.0-37.0); MEAN CORPUSCULAR VOLUME 82 fL (80-100); MONOCYTES # (AUTO) 0.5 K/uL (0.1-1.0); MONOCYTES % (AUTO) 6.2 % (2.0-9.0); NEUTROPHILS # (AUTO) 6.4 K/uL (1.8-7.7); NEUTROPHILS % (AUTO) 72.4 % (40.0-70.0); PLATELET COUNT (AUTO) 306 K/uL (150-450); RED BLOOD CELL COUNT(AUTO) 5.21 MIL/uL (4.50-5.90); RED CELL DISTRIBUTION WIDTH 14.9 % (11.5-14.5)
[2021-04-03 21:01] LABS: ANION GAP 8 mmol/L (8-16); CALCIUM, TOTAL 9.1 mg/dL (8.8-10.5); CARBON DIOXIDE 28 mmol/L (22-29); CHLORIDE 106 mmol/L (98-107); CREATININE 1.03 mg/dL (0.60-1.30); GLOMERULAR FILTR. RATE CALC > 60 mL/min (>60); GLUCOSE,RANDOM 129 mg/dL (70-110); POTASSIUM 3.6 mmol/L (3.5-5.1); SODIUM SERUM 142 mmol/L (136-145); UREA NITROGEN, BLOOD 25 mg/dL (7-18)
[2021-04-03 21:06] LABS: ALANINE AMINOTRANSFERASE 59 U/L (12-78); ALBUMIN 3.9 g/dL (3.4-5.0); ALKALINE PHOSPHATASE 113 U/L (46-116); ASPARTATE AMINOTRANSFERASE 20 U/L (15-37); BILIRUBIN,TOTAL 0.2 mg/dL (0.1-1.0); TOTAL PROTEIN, SERUM 7.9 g/dL (6.4-8.2)
[2021-04-03 21:06] LABS: COVID AG,FIA SOURCE NASOPHARYNGEAL
[2021-04-03 21:08] LABS: PHENYTOIN (DILANTIN) < 0.5 mcg/mL (10.0-20.0); VALPROIC ACID < 3 mcg/mL (50-100)
[2021-04-04 01:10] LABS: CHOLESTEROL 174 mg/dL (131-200); HDL CHOLESTEROL 36 mg/dL (40-60); TRIGLYCERIDES 404 mg/dL (15-150)
[2021-04-04 01:11] LABS: CHOL/HDL RATIO 4.8 (4.2-7.3)
[2021-04-04] MEDS: LORazepam 2 MG TABLET PO PRN ×3 (01:13→22:01)
[2021-04-04] MEDS: ZOLPIDEM TARTRATE 10 MG TABLET PO PRN ×2 (01:13→22:01)
[2021-04-04] MEDS: HALOPERIDOL 5 MG TABLET PO PRN ×3 (01:50→22:01)
[2021-04-04 16:49] VITALS: BP 120/81
[2021-04-04] MEDS ORDERED: INFLUENZA VIRUS VACCINE QVS 2021-22 (6MO+)/PF 60 MCG/0.5 ML SYRINGE IM. ONE (17:00)
[2021-04-04] MEDS ORDERED: PNEUMOCOCCAL VACCINE POLYVALENT 0.5 ML VIAL [PPSV23] IM. ONE (17:30)
[2021-04-05 05:26] VITALS: BP 112/76
[2021-04-05 08:22] VITALS: BP 111/68
[2021-04-05] MEDS: HALOPERIDOL 5 MG TABLET PO PRN ×2 (08:27→16:23)
[2021-04-05] MEDS: LORazepam 2 MG TABLET PO PRN ×2 (08:27→16:23)
[2021-04-05] MEDS: ARIPiprazole 15 MG TABLET PO SCH (11:10)
[2021-04-05] MEDS: DIVALPROEX SODIUM 500 MG DR TABLET PO SCH ×2 (11:10→16:22)
[2021-04-05] MEDS: GABAPENTIN 400 MG CAPSULE PO SCH ×2 (12:23→16:22)
[2021-04-05 16:11] VITALS: BP 140/98
[2021-04-05] MEDS: LevETIRAcetam 500 MG TABLET PO SCH (16:22)
[2021-04-05] MEDS: PHENYTOIN 50 MG CHEWABLE TABLET PO SCH (16:23)
[2021-04-06 05:16] VITALS: BP 121/76
[2021-04-06] MEDS: GABAPENTIN 400 MG CAPSULE PO SCH ×3 (08:13→16:47)
[2021-04-06] MEDS: PHENYTOIN 50 MG CHEWABLE TABLET PO SCH ×2 (08:13→16:47)
[2021-04-06] MEDS: DIVALPROEX SODIUM 500 MG DR TABLET PO SCH ×2 (08:13→16:47)
[2021-04-06] MEDS: LevETIRAcetam 500 MG TABLET PO SCH ×2 (08:13→16:47)
[2021-04-06] MEDS: LORazepam 2 MG TABLET PO PRN ×3 (08:13→16:47)
[2021-04-06 08:21] VITALS: BP 134/88
[2021-04-06] MEDS: ARIPiprazole 15 MG TABLET PO SCH (09:04)
[2021-04-06] MEDS: HALOPERIDOL 5 MG TABLET PO PRN ×2 (12:19→16:47)
[2021-04-06] MEDS ORDERED: LOPERAMIDE HCL 2 MG CAPSULE PO PRN (13:00)
[2021-04-06 16:10] VITALS: BP 137/63
[2021-04-07 02:09] VITALS: BP 114/68
[2021-04-07] MEDS: LORazepam 2 MG TABLET PO PRN ×3 (09:00→17:21)
[2021-04-07] MEDS: LevETIRAcetam 500 MG TABLET PO SCH ×2 (09:01→16:57)
[2021-04-07] MEDS: GABAPENTIN 400 MG CAPSULE PO SCH ×3 (09:01→16:58)
[2021-04-07] MEDS: DIVALPROEX SODIUM 500 MG DR TABLET PO SCH ×2 (09:01→16:57)
[2021-04-07] MEDS: PHENYTOIN 50 MG CHEWABLE TABLET PO SCH ×2 (09:01→16:57)
[2021-04-07] MEDS: ARIPiprazole 15 MG TABLET PO SCH (09:01)
[2021-04-07 16:07] VITALS: BP 104/62
[2021-04-07] MEDS: HALOPERIDOL 5 MG TABLET PO PRN (16:58)
[2021-04-08] MEDS: LORazepam 2 MG TABLET PO PRN ×4 (01:45→16:47)
[2021-04-08 01:46] VITALS: BP 123/78
[2021-04-08] MEDS: ZOLPIDEM TARTRATE 10 MG TABLET PO PRN (01:46)
[2021-04-08 08:20] VITALS: BP 116/69
[2021-04-08] MEDS: ARIPiprazole 15 MG TABLET PO SCH (08:26)
[2021-04-08] MEDS: GABAPENTIN 400 MG CAPSULE PO SCH ×3 (08:27→16:15)
[2021-04-08] MEDS: DIVALPROEX SODIUM 500 MG DR TABLET PO SCH ×2 (08:27→16:15)
[2021-04-08] MEDS: LevETIRAcetam 500 MG TABLET PO SCH ×2 (08:27→16:15)
[2021-04-08] MEDS: HALOPERIDOL 5 MG TABLET PO PRN ×3 (08:27→16:47)
[2021-04-08] MEDS: PHENYTOIN 50 MG CHEWABLE TABLET PO SCH ×2 (08:27→16:15)
[2021-04-08 16:11] VITALS: BP 125/82
[2021-04-08 19:51] VITALS: BP 122/80
[2021-04-08] MEDS: MAG HYDROX/AL HYDROX/SIMETH ES 30 ML SUSPENSION UDCUP PO PRN (21:06)
[2021-04-09] MEDS: LORazepam 2 MG TABLET PO PRN ×5 (00:06→23:41)
[2021-04-09] MEDS: ZOLPIDEM TARTRATE 10 MG TABLET PO PRN ×3 (00:07→23:40)
[2021-04-09 01:52] VITALS: BP 123/80
[2021-04-09 08:06] VITALS: BP 130/70
[2021-04-09] MEDS: PHENYTOIN 50 MG CHEWABLE TABLET PO SCH ×2 (08:23→16:07)
[2021-04-09] MEDS: GABAPENTIN 400 MG CAPSULE PO SCH ×3 (08:23→16:07)
[2021-04-09] MEDS: DIVALPROEX SODIUM 500 MG DR TABLET PO SCH ×2 (08:24→16:07)
[2021-04-09] MEDS: ARIPiprazole 15 MG TABLET PO SCH (08:24)
[2021-04-09] MEDS: LevETIRAcetam 500 MG TABLET PO SCH ×2 (08:24→16:07)
[2021-04-09] MEDS: HALOPERIDOL 5 MG TABLET PO PRN ×2 (08:24→13:12)
[2021-04-09 16:09] VITALS: BP 123/89
[2021-04-10] MEDS: LORazepam 2 MG TABLET PO PRN ×2 (04:45→08:07)
[2021-04-10] MEDS: HALOPERIDOL 5 MG TABLET PO PRN ×2 (04:45→08:07)
[2021-04-10 04:46] VITALS: BP 106/71
[2021-04-10] MEDS ORDERED: ACETAMINOPHEN 325 MG TABLET PO PRN ×3 (05:45→11:45)
[2021-04-10] MEDS: ACETAMINOPHEN 325 MG TABLET PO PRN (06:20)
[2021-04-10] MEDS: ARIPiprazole 15 MG TABLET PO SCH (08:07)
[2021-04-10] MEDS: DIVALPROEX SODIUM 500 MG DR TABLET PO SCH ×2 (08:07→17:26)
[2021-04-10] MEDS: LevETIRAcetam 500 MG TABLET PO SCH ×2 (08:07→17:26)
[2021-04-10] MEDS: GABAPENTIN 400 MG CAPSULE PO SCH ×3 (08:08→17:26)
[2021-04-10] MEDS: PHENYTOIN 50 MG CHEWABLE TABLET PO SCH ×2 (08:08→17:26)
[2021-04-10 08:23] VITALS: BP 114/73
[2021-04-10] MEDS ORDERED: HALOPERIDOL LACTATE 5 MG/ML VIAL ONE (16:07)
[2021-04-10] MEDS ORDERED: LORazepam 2 MG/ML VIAL ONE (16:07)
[2021-04-10] MEDS ORDERED: DiphenhydrAMINE HCL 50 MG/ML VIAL ONE (16:07)
[2021-04-10] MEDS ORDERED: DiphenhydrAMINE HCL 50 MG/ML VIAL IM ONE (16:15)
[2021-04-10] MEDS ORDERED: HALOPERIDOL LACTATE 5 MG/ML VIAL IM ONE (16:15)
[2021-04-10] MEDS ORDERED: LORazepam 2 MG/ML VIAL IM ONE (16:15)
[2021-04-10 16:31] VITALS: BP 122/78
[2021-04-10] MEDS: ZOLPIDEM TARTRATE 10 MG TABLET PO PRN (20:33)
[2021-04-11 01:02] VITALS: BP 119/81
[2021-04-11] MEDS: HALOPERIDOL 5 MG TABLET PO PRN ×3 (04:00→16:13)
[2021-04-11] MEDS: LORazepam 2 MG TABLET PO PRN ×2 (04:00→08:16)
[2021-04-11] MEDS: LevETIRAcetam 500 MG TABLET PO SCH ×2 (08:16→16:12)
[2021-04-11] MEDS: GABAPENTIN 400 MG CAPSULE PO SCH ×3 (08:16→16:12)
[2021-04-11] MEDS: PHENYTOIN 50 MG CHEWABLE TABLET PO SCH ×2 (08:16→16:12)
[2021-04-11] MEDS: OMEGA-3/DHA/EPA/FISH OIL 1,000 MG CAPSULE PO SCH (08:16)
[2021-04-11] MEDS: DIVALPROEX SODIUM 500 MG DR TABLET PO SCH ×2 (08:16→16:12)
[2021-04-11] MEDS: ARIPiprazole 15 MG TABLET PO SCH (08:16)
[2021-04-11 08:31] VITALS: BP 130/97
[2021-04-11] MEDS ORDERED: LORazepam 1 MG TABLET PO SCH (12:00)
[2021-04-11] MEDS: LORazepam 1 MG TABLET PO PRN (16:12)
[2021-04-11 16:19] VITALS: BP 132/88
[2021-04-11] MEDS: ZOLPIDEM TARTRATE 10 MG TABLET PO PRN (20:50)
[2021-04-12 00:51] VITALS: BP 145/97
[2021-04-12] MEDS: LORazepam 1 MG TABLET PO PRN ×4 (00:53→20:06)
[2021-04-12] MEDS: HALOPERIDOL 5 MG TABLET PO PRN ×4 (00:53→20:07)
[2021-04-12] MEDS: DIVALPROEX SODIUM 500 MG DR TABLET PO SCH ×2 (08:15→16:05)
[2021-04-12] MEDS: OMEGA-3/DHA/EPA/FISH OIL 1,000 MG CAPSULE PO SCH (08:15)
[2021-04-12] MEDS: ARIPiprazole 15 MG TABLET PO SCH (08:15)
[2021-04-12] MEDS: LevETIRAcetam 500 MG TABLET PO SCH ×2 (08:15→16:06)
[2021-04-12] MEDS: GABAPENTIN 400 MG CAPSULE PO SCH ×3 (08:16→16:06)
[2021-04-12] MEDS: PHENYTOIN 50 MG CHEWABLE TABLET PO SCH ×2 (08:18→16:06)
[2021-04-12 08:55] VITALS: BP 147/93
[2021-04-12] MEDS: ACETAMINOPHEN 325 MG TABLET PO PRN (16:05)
[2021-04-12] MEDS: CLOTRIMAZOLE 1% 15 GM CREAM TP SCH (16:10)
[2021-04-12 16:24] VITALS: BP 140/92
[2021-04-12] MEDS: ZOLPIDEM TARTRATE 10 MG TABLET PO PRN (20:06)
[2021-04-13 01:09] VITALS: BP 132/72
[2021-04-13] MEDS: HALOPERIDOL 5 MG TABLET PO PRN ×2 (02:31→12:07)
[2021-04-13] MEDS: LORazepam 1 MG TABLET PO PRN ×3 (02:31→17:10)
[2021-04-13] MEDS: ACETAMINOPHEN 325 MG TABLET PO PRN ×2 (03:36→09:58)
[2021-04-13] MEDS: GABAPENTIN 400 MG CAPSULE PO SCH ×3 (08:02→17:10)
[2021-04-13] MEDS: ARIPiprazole 15 MG TABLET PO SCH (08:02)
[2021-04-13] MEDS: LevETIRAcetam 500 MG TABLET PO SCH ×2 (08:03→17:10)
[2021-04-13] MEDS: OMEGA-3/DHA/EPA/FISH OIL 1,000 MG CAPSULE PO SCH (08:03)
[2021-04-13] MEDS: PHENYTOIN 50 MG CHEWABLE TABLET PO SCH ×2 (08:03→17:10)
[2021-04-13] MEDS: DIVALPROEX SODIUM 500 MG DR TABLET PO SCH ×2 (08:03→17:10)
[2021-04-13 08:13] VITALS: BP 144/84
[2021-04-13] MEDS: CLOTRIMAZOLE 1% 15 GM CREAM TP SCH ×2 (08:48→17:21)
[2021-04-13] MEDS: MAG HYDROX/AL HYDROX/SIMETH ES 30 ML SUSPENSION UDCUP PO PRN (16:00)
[2021-04-13 16:14] VITALS: BP 135/84
[2021-04-13 18:06] VITALS: BP 146/87
[2021-04-13] MEDS ORDERED: HALOPERIDOL LACTATE 5 MG/ML VIAL ONE (18:11)
[2021-04-13] MEDS ORDERED: LORazepam 2 MG/ML VIAL ONE (18:11)
[2021-04-13] MEDS ORDERED: DiphenhydrAMINE HCL 50 MG/ML VIAL ONE (18:11)
[2021-04-13] MEDS ORDERED: HALOPERIDOL LACTATE 5 MG/ML VIAL IM ONE (18:15)
[2021-04-13] MEDS ORDERED: DiphenhydrAMINE HCL 50 MG/ML VIAL IM ONE (18:15)
[2021-04-13] MEDS ORDERED: LORazepam 2 MG/ML VIAL IM ONE (18:15)
== END 2021-04-13 19:00 | disposition short-term general hospital (02) | DRG 750 ==
LOC: EMS 15:49 → B2S 04-04 06:00 → B3A 04-04 14:16 → 5N 04-13 19:00 → B3A 04-13 19:00
PROVIDERS: ADMIT Psychiatry & Neurology Child & Adolescent Psychiatry; ATTEND Psychiatry & Neurology Child & Adolescent Psychiatry
DX: F25.1 Schizoaffective disorder, depressive type (principal); F22 Delusional disorders; R45.851 Suicidal ideations; E03.9 Hypothyroidism, unspecified; E66.9 Obesity, unspecified; Z59.00 Homelessness unspecified; F31.9 Bipolar disorder, unspecified; G40.909 Epilepsy, unspecified, not intractable, without status epilepticus; G89.29 Other chronic pain; F41.9 Anxiety disorder, unspecified; F17.210 Nicotine dependence, cigarettes, uncomplicated; Z20.822 Contact with and (suspected) exposure to COVID-19; R10.13 Epigastric pain; Z68.37 Body mass index [BMI] 37.0-37.9, adult; Z71.6 Tobacco abuse counseling
CPT/HCPCS: 80053; 80061; 80164; 80185; 83036; 85025; 99285; G0480; J1200; J1630; J2060

== ENCOUNTER 2021-04-13 19:18 | Inpatient (IN) | payer MEDICAID, OTHER ==
[~2021-04-13] VITALS: Ht 170.2 cm; Wt 121.0 kg
[2021-04-13 20:58] LABS: BASOPHILS % (AUTO) 1.2 % (0.0-2.0); EOSINOPHILS % (AUTO) 4.2 % (1.0-6.0); HEMATOCRIT 41.5 % (41-53); LYMPHOCYTES # (AUTO) 1.9 K/uL (1.0-4.8); MEAN CORPUSCULAR HEMOGLOBIN 27.4 pg (26.0-34.0); MEAN CORPUSCULAR HGB CONC 33.8 G/dL (31.0-37.0); MEAN CORPUSCULAR VOLUME 81 fL (80-100); MONOCYTES # (AUTO) 0.7 K/uL (0.1-1.0); MONOCYTES % (AUTO) 8.4 % (2.0-9.0); NEUTROPHILS # (AUTO) 5.2 K/uL (1.8-7.7); NEUTROPHILS % (AUTO) 63.2 % (40.0-70.0); PLATELET COUNT (AUTO) 226 K/uL (150-450); RED BLOOD CELL COUNT(AUTO) 5.12 MIL/uL (4.50-5.90)
[2021-04-13 21:10] LABS: PROTHROMBIN TIME 10.3 SEC (9.4-11.6)
[2021-04-13 21:19] LABS: APPEARANCE,URINE CLEAR (CLEAR); BILIRUBIN,URINE NEGATIVE (NEGATIVE); GLUCOSE, URINE (UA) NEGATIVE (NEGATIVE); KETONES,URINE NEGATIVE (NEGATIVE); LEUKOCYTE ESTERASE ,URINE NEGATIVE (NEGATIVE); NITRATE,URINE NEGATIVE (NEGATIVE); OCCULT BLOOD,URINE NEGATIVE (NEGATIVE); PROTEIN,URINE NEGATIVE (NEGATIVE); UROBILINOGEN,URINE 0.2 mg/dL (<=1.0)
[2021-04-13 21:21] LABS: AMPHET/METH SCREEN,URINE NEGATIVE (NEGATIVE); BARBITURATE SCREEN, URINE NEGATIVE (NEGATIVE); BENZODIAZEPINES SCREEN,URINE NEGATIVE (NEGATIVE); CANNABINOID SCREEN,URINE NEGATIVE (NEGATIVE); COCAINE SCREEN,URINE NEGATIVE (NEGATIVE); METHADONE SCREEN, URINE NEGATIVE (NEGATIVE); OPIATE SCREEN,URINE NEGATIVE (NEGATIVE)
[2021-04-13] MEDS ORDERED: ONDANSETRON HCL 4 MG/2 ML VIAL IVP ONE (21:30)
[2021-04-13] MEDS ORDERED: MORPHINE SULFATE 4 MG/ML SYRINGE IVP ONE (21:30)
[2021-04-13 21:34] LABS: PHENCYCLIDINE SCREEN,URINE NEGATIVE (NEGATIVE)
[2021-04-13 21:40] LABS: ANION GAP 9 mmol/L (8-16); CALCIUM, TOTAL 8.9 mg/dL (8.8-10.5); CARBON DIOXIDE 27 mmol/L (22-29); CHLORIDE 105 mmol/L (98-107); CREATININE 0.78 mg/dL (0.60-1.30); GLOMERULAR FILTR. RATE CALC > 60 mL/min (>60); GLUCOSE,RANDOM 109 mg/dL (70-110); SODIUM SERUM 141 mmol/L (136-145); UREA NITROGEN, BLOOD 15 mg/dL (7-18)
[2021-04-13 21:46] LABS: ALANINE AMINOTRANSFERASE 48 U/L (12-78); ALBUMIN 3.6 g/dL (3.4-5.0); ALKALINE PHOSPHATASE 125 U/L (46-116); ASPARTATE AMINOTRANSFERASE 20 U/L (15-37); BILIRUBIN,TOTAL 0.2 mg/dL (0.1-1.0); LIPASE 93 U/L (73-393); TOTAL PROTEIN, SERUM 7.6 g/dL (6.4-8.2)
[2021-04-13] MEDS ORDERED: PB/HYOSCY/ATR/SCOP/LIDO/MAALOX 55 ML BOTTLE PO ONE (22:45)
[2021-04-14] MEDS ORDERED: ASPIRIN 81 MG CHEWABLE TABLET PO ONE
[2021-04-14] MEDS ORDERED: ONDANSETRON HCL 4 MG/2 ML VIAL IVP PRN (00:15)
[2021-04-14] MEDS ORDERED: ACETAMINOPHEN 325 MG TABLET PO PRN (00:15)
[2021-04-14] MEDS: METOPROLOL TARTRATE 25 MG TABLET PO SCH ×3 (00:19→20:23)
[2021-04-14] MEDS: MORPHINE SULFATE 2 MG/ML SYRINGE IVP PRN ×4 (00:38→16:30)
[2021-04-14 03:13] LABS: COVID AG,FIA SOURCE NASAL SWAB
[2021-04-14 04:20] VITALS: BP 149/68
[2021-04-14 07:20] VITALS: BP 141/103
[2021-04-14] MEDS: ASPIRIN 81 MG CHEWABLE TABLET PO SCH (07:39)
[2021-04-14] MEDS: LevETIRAcetam 500 MG TABLET PO SCH ×2 (07:39→20:24)
[2021-04-14] MEDS: GABAPENTIN 400 MG CAPSULE PO SCH ×3 (07:39→20:24)
[2021-04-14] MEDS: HEPARIN SODIUM,PORCINE 5,000 UNITS/ML VIAL SQ SCH ×2 (07:40→16:31)
[2021-04-14] MEDS: DIVALPROEX SODIUM 500 MG DR TABLET PO SCH ×2 (09:46→20:23)
[2021-04-14] MEDS: ARIPiprazole 15 MG TABLET PO SCH (09:46)
[2021-04-14] MEDS: PHENYTOIN 50 MG CHEWABLE TABLET PO SCH ×2 (09:46→20:24)
[2021-04-14 10:04] LABS: ALBUMIN 3.6 g/dL (3.4-5.0); BILIRUBIN,DIRECT 0.1 mg/dL (0.00-0.20); BILIRUBIN,TOTAL 0.2 mg/dL (0.1-1.0); TOTAL PROTEIN, SERUM 7.5 g/dL (6.4-8.2)
[2021-04-14 11:45] VITALS: BP 141/95
[2021-04-14] MEDS: LORazepam 2 MG/ML VIAL IVP PRN ×2 (11:50→20:26)
[2021-04-14] MEDS: HALOPERIDOL LACTATE 5 MG/ML VIAL IM PRN ×2 (11:50→20:28)
[2021-04-14 16:07] VITALS: BP 125/60
[2021-04-14 20:05] VITALS: BP 119/72
[2021-04-15 00:21] VITALS: BP 125/62
[2021-04-15] MEDS: MORPHINE SULFATE 2 MG/ML SYRINGE IVP PRN ×3 (00:55→20:40)
[2021-04-15 04:25] VITALS: BP 109/45
[2021-04-15] MEDS: LORazepam 2 MG/ML VIAL IVP PRN ×2 (05:02→23:21)
[2021-04-15] MEDS: HALOPERIDOL LACTATE 5 MG/ML VIAL IM PRN ×2 (05:02→23:23)
[2021-04-15 09:51] VITALS: BP 117/84
[2021-04-15] MEDS: PHENYTOIN 50 MG CHEWABLE TABLET PO SCH ×2 (09:54→20:40)
[2021-04-15] MEDS: GABAPENTIN 400 MG CAPSULE PO SCH ×3 (09:55→20:40)
[2021-04-15] MEDS: METOPROLOL TARTRATE 25 MG TABLET PO SCH ×2 (09:55→20:39)
[2021-04-15] MEDS: ASPIRIN 81 MG CHEWABLE TABLET PO SCH (09:55)
[2021-04-15] MEDS: DIVALPROEX SODIUM 500 MG DR TABLET PO SCH ×2 (09:56→20:40)
[2021-04-15] MEDS: ARIPiprazole 15 MG TABLET PO SCH (09:56)
[2021-04-15] MEDS: HEPARIN SODIUM,PORCINE 5,000 UNITS/ML VIAL SQ SCH ×4 (09:56→23:23)
[2021-04-15] MEDS: LevETIRAcetam 500 MG TABLET PO SCH ×2 (09:56→20:40)
[2021-04-15] MEDS: OLANZapine 5 MG TABLET PO SCH ×2 (16:07→20:40)
[2021-04-15 19:17] VITALS: BP 131/89
[2021-04-15 23:00] VITALS: BP 140/93
[2021-04-16] MEDS: MORPHINE SULFATE 2 MG/ML SYRINGE IVP PRN ×5 (01:05→20:34)
[2021-04-16] MEDS ORDERED: HALOPERIDOL LACTATE 5 MG/ML VIAL IM ONE (03:30)
[2021-04-16 03:36] VITALS: BP 119/81
[2021-04-16 06:48] LABS: BASOPHILS % (AUTO) 0.7 % (0.0-2.0); EOSINOPHILS % (AUTO) 5.7 % (1.0-6.0); HEMATOCRIT 39.9 % (41-53); HEMOGLOBIN 13.3 g/dL (13.5-17.5); LYMPHOCYTES # (AUTO) 1.7 K/uL (1.0-4.8); LYMPHOCYTES % (AUTO) 29.5 % (22.0-44.0); MEAN CORPUSCULAR HEMOGLOBIN 27.3 pg (26.0-34.0); MEAN CORPUSCULAR HGB CONC 33.2 G/dL (31.0-37.0); MEAN CORPUSCULAR VOLUME 82 fL (80-100); MONOCYTES # (AUTO) 0.5 K/uL (0.1-1.0); MONOCYTES % (AUTO) 8.8 % (2.0-9.0); NEUTROPHILS # (AUTO) 3.2 K/uL (1.8-7.7); NEUTROPHILS % (AUTO) 55.3 % (40.0-70.0); PLATELET COUNT (AUTO) 214 K/uL (150-450); RED BLOOD CELL COUNT(AUTO) 4.87 MIL/uL (4.50-5.90); RED CELL DISTRIBUTION WIDTH 15.2 % (11.5-14.5)
[2021-04-16 07:09] LABS: ALANINE AMINOTRANSFERASE 100 U/L (12-78); ALBUMIN 3.1 g/dL (3.4-5.0); ALKALINE PHOSPHATASE 109 U/L (46-116); ANION GAP 6 mmol/L (8-16); ASPARTATE AMINOTRANSFERASE 34 U/L (15-37); BILIRUBIN,TOTAL 0.2 mg/dL (0.1-1.0); CALCIUM, TOTAL 8.9 mg/dL (8.8-10.5); CARBON DIOXIDE 28 mmol/L (22-29); CHLORIDE 106 mmol/L (98-107); CREATININE 0.76 mg/dL (0.60-1.30); GLOMERULAR FILTR. RATE CALC > 60 mL/min (>60); GLUCOSE,RANDOM 93 mg/dL (70-110); SODIUM SERUM 140 mmol/L (136-145); TOTAL PROTEIN, SERUM 6.9 g/dL (6.4-8.2); UREA NITROGEN, BLOOD 14 mg/dL (7-18)
[2021-04-16 08:26] VITALS: BP 132/95
[2021-04-16] MEDS: METOPROLOL TARTRATE 25 MG TABLET PO SCH ×2 (08:39→20:38)
[2021-04-16] MEDS: OLANZapine 5 MG TABLET PO SCH ×2 (08:39→20:39)
[2021-04-16] MEDS: ASPIRIN 81 MG CHEWABLE TABLET PO SCH (08:40)
[2021-04-16] MEDS: DIVALPROEX SODIUM 500 MG DR TABLET PO SCH ×2 (08:40→20:38)
[2021-04-16] MEDS: GABAPENTIN 400 MG CAPSULE PO SCH ×3 (08:40→20:39)
[2021-04-16] MEDS: LevETIRAcetam 500 MG TABLET PO SCH ×2 (08:41→20:38)
[2021-04-16] MEDS: PHENYTOIN 50 MG CHEWABLE TABLET PO SCH ×2 (08:41→20:38)
[2021-04-16] MEDS: HEPARIN SODIUM,PORCINE 5,000 UNITS/ML VIAL SQ SCH ×3 (08:42→22:52)
[2021-04-16] MEDS: ARIPiprazole 15 MG TABLET PO SCH (08:42)
[2021-04-16 12:18] VITALS: BP 130/79
[2021-04-16] MEDS ORDERED: MORPHINE SULFATE 2 MG/ML SYRINGE IVP ONE (13:00)
[2021-04-16] MEDS: LORazepam 2 MG/ML VIAL IVP PRN ×2 (13:06→22:52)
[2021-04-16] MEDS: HALOPERIDOL LACTATE 5 MG/ML VIAL IM PRN (13:08)
[2021-04-16 16:06] VITALS: BP 126/65
[2021-04-16 20:00] VITALS: BP 126/85
[2021-04-16 23:45] VITALS: BP 133/71
[2021-04-17] MEDS: MORPHINE SULFATE 2 MG/ML SYRINGE IVP PRN ×2 (01:33→07:51)
[2021-04-17] MEDS ORDERED: HALOPERIDOL LACTATE 5 MG/ML VIAL IM ONE (02:15)
[2021-04-17] MEDS ORDERED: DiphenhydrAMINE HCL 50 MG/ML VIAL IVP ONE (02:45)
[2021-04-17] MEDS ORDERED: LORazepam 2 MG/ML VIAL IVP ONE (02:45)
[2021-04-17 06:05] LABS: BASOPHILS % (AUTO) 0.7 % (0.0-2.0); EOSINOPHILS % (AUTO) 4.8 % (1.0-6.0); HEMATOCRIT 38.8 % (41-53); LYMPHOCYTES # (AUTO) 2.3 K/uL (1.0-4.8); MEAN CORPUSCULAR HEMOGLOBIN 27.5 pg (26.0-34.0); MEAN CORPUSCULAR HGB CONC 33.6 G/dL (31.0-37.0); MEAN CORPUSCULAR VOLUME 82 fL (80-100); MONOCYTES # (AUTO) 0.8 K/uL (0.1-1.0); MONOCYTES % (AUTO) 10.8 % (2.0-9.0); NEUTROPHILS # (AUTO) 3.7 K/uL (1.8-7.7); NEUTROPHILS % (AUTO) 51.7 % (40.0-70.0); PLATELET COUNT (AUTO) 205 K/uL (150-450); RED BLOOD CELL COUNT(AUTO) 4.74 MIL/uL (4.50-5.90); RED CELL DISTRIBUTION WIDTH 14.8 % (11.5-14.5)
[2021-04-17 06:39] LABS: ALANINE AMINOTRANSFERASE 105 U/L (12-78); ALBUMIN 3.3 g/dL (3.4-5.0); ALKALINE PHOSPHATASE 111 U/L (46-116); ANION GAP 7 mmol/L (8-16); ASPARTATE AMINOTRANSFERASE 43 U/L (15-37); BILIRUBIN,TOTAL 0.2 mg/dL (0.1-1.0); CALCIUM, TOTAL 8.9 mg/dL (8.8-10.5); CARBON DIOXIDE 28 mmol/L (22-29); CHLORIDE 104 mmol/L (98-107); CREATININE 0.86 mg/dL (0.60-1.30); GLOMERULAR FILTR. RATE CALC > 60 mL/min (>60); GLUCOSE,RANDOM 89 mg/dL (70-110); SODIUM SERUM 139 mmol/L (136-145); TOTAL PROTEIN, SERUM 6.8 g/dL (6.4-8.2); UREA NITROGEN, BLOOD 17 mg/dL (7-18)
[2021-04-17] MEDS: LORazepam 2 MG/ML VIAL IVP PRN (07:50)
[2021-04-17] MEDS: HALOPERIDOL LACTATE 5 MG/ML VIAL IM PRN (07:50)
[2021-04-17] MEDS: METOPROLOL TARTRATE 25 MG TABLET PO SCH (09:45)
[2021-04-17] MEDS: ARIPiprazole 15 MG TABLET PO SCH (09:45)
[2021-04-17] MEDS: PHENYTOIN 50 MG CHEWABLE TABLET PO SCH (09:45)
[2021-04-17] MEDS: LevETIRAcetam 500 MG TABLET PO SCH (09:46)
[2021-04-17] MEDS: ASPIRIN 81 MG CHEWABLE TABLET PO SCH (09:46)
[2021-04-17] MEDS: OLANZapine 5 MG TABLET PO SCH (09:46)
[2021-04-17] MEDS: DIVALPROEX SODIUM 500 MG DR TABLET PO SCH (09:47)
[2021-04-17] MEDS: GABAPENTIN 400 MG CAPSULE PO SCH (09:47)
[2021-04-17] MEDS: HEPARIN SODIUM,PORCINE 5,000 UNITS/ML VIAL SQ SCH (09:47)
[2021-04-17] MEDS ORDERED: METO25 PO (12:26)
[2021-04-17] MEDS ORDERED: OLAN5TAB52 PO (12:28)
[2021-04-17 12:46] VITALS: BP 148/67
[2021-04-18] MEDS ORDERED: AMOX1TAB16 PO (22:52)
== END 2021-04-17 13:50 | disposition home or self-care (01) | DRG 254 ==
LOC: EMS 19:21 → 5N 04-14 02:25
PROVIDERS: ADMIT Internal Medicine; ATTEND Internal Medicine
DX: K59.00 Constipation, unspecified (principal); F25.0 Schizoaffective disorder, bipolar type; G40.909 Epilepsy, unspecified, not intractable, without status epilepticus; E03.9 Hypothyroidism, unspecified; F17.210 Nicotine dependence, cigarettes, uncomplicated; R77.8 Other specified abnormalities of plasma proteins; J45.909 Unspecified asthma, uncomplicated; Z20.822 Contact with and (suspected) exposure to COVID-19; F99 Mental disorder, not otherwise specified; Z90.49 Acquired absence of other specified parts of digestive tract; Z71.6 Tobacco abuse counseling
CPT/HCPCS: 74022; 74176; 76705; 80053; 80076; 81003; 83690; 83735; 84443; 84484; 85025; 85379; 85610; 85730; 93005; 93306; 99285; J1200; J1630; J1644; J2060; J2270; J2405

== ENCOUNTER 2021-04-18 21:03 | Emergency (ER) | payer OTHER ==
[~2021-04-18] VITALS: Ht 177.8 cm; Wt 100.5 kg
[~2021-04-18 21:03] MED LIST changes: +METO25 PO; +OLAN5TAB52 PO
[2021-04-18] MEDS ORDERED: ACETAMINOPHEN 500 MG TABLET PO ONE (22:45)
[2021-04-18] MEDS ORDERED: PERTUSS(ACELL),DIPH,TET VAC/PF 0.5 ML SYRINGE IM. ONE (22:45)
[2021-04-18] MEDS ORDERED: SODIUM CHLORIDE 0.9% 250 ML IRRIG SOLUTION BOTTLE IRRIG ONE (22:45)
[2021-04-18] MEDS ORDERED: AMOX TR/POT CLAV 875 MG/125 MG TABLET PO ONE (22:45)
[2021-04-18] MEDS ORDERED: AMOX1TAB16 PO (22:52)
[2021-04-18 23:17] VITALS: BP 144/80
== END 2021-04-18 23:28 | disposition home or self-care (01) ==
LOC: EMS 21:11
DX: S61.411A Laceration without foreign body of right hand, initial encounter (principal); S00.33XA Contusion of nose, initial encounter; R42 Dizziness and giddiness; F31.9 Bipolar disorder, unspecified; F20.9 Schizophrenia, unspecified; F17.210 Nicotine dependence, cigarettes, uncomplicated; W22.8XXA Striking against or struck by other objects, initial encounter; Y93.89 Activity, other specified; Y92.89 Other specified places as the place of occurrence of the external cause; Y99.8 Other external cause status
CPT/HCPCS: 90471; 90715; 99283

== ENCOUNTER 2021-04-28 19:41 | Inpatient (IN) | payer MEDICAID, OTHER ==
[~2021-04-28] VITALS: Ht 177.8 cm; Wt 119.3 kg
[~2021-04-28 19:41] MED LIST changes: +AMOX1TAB16 PO
[2021-04-28] MEDS ORDERED: LORazepam 2 MG TABLET PO ONE (20:15)
[2021-04-28] MEDS ORDERED: DiphenhydrAMINE HCL 50 MG CAPSULE PO ONE (20:15)
[2021-04-28] MEDS ORDERED: HALOPERIDOL 5 MG TABLET PO ONE (20:15)
[2021-04-28 20:30] LABS: BASOPHILS % (AUTO) 0.9 % (0.0-2.0); EOSINOPHILS % (AUTO) 4.5 % (1.0-6.0); HEMATOCRIT 39.9 % (41-53); HEMOGLOBIN 13.2 g/dL (13.5-17.5); LYMPHOCYTES # (AUTO) 1.4 K/uL (1.0-4.8); LYMPHOCYTES % (AUTO) 16.8 % (22.0-44.0); MEAN CORPUSCULAR HEMOGLOBIN 27.4 pg (26.0-34.0); MEAN CORPUSCULAR HGB CONC 33.2 G/dL (31.0-37.0); MEAN CORPUSCULAR VOLUME 83 fL (80-100); MONOCYTES # (AUTO) 0.7 K/uL (0.1-1.0); MONOCYTES % (AUTO) 8.1 % (2.0-9.0); NEUTROPHILS # (AUTO) 5.7 K/uL (1.8-7.7); NEUTROPHILS % (AUTO) 69.7 % (40.0-70.0); PLATELET COUNT (AUTO) 273 K/uL (150-450); RED BLOOD CELL COUNT(AUTO) 4.83 MIL/uL (4.50-5.90); RED CELL DISTRIBUTION WIDTH 15.3 % (11.5-14.5)
[2021-04-28 20:46] LABS: ANION GAP 10 mmol/L (8-16); CALCIUM, TOTAL 9.3 mg/dL (8.8-10.5); CARBON DIOXIDE 25 mmol/L (22-29); CHLORIDE 106 mmol/L (98-107); CREATININE 0.83 mg/dL (0.60-1.30); GLOMERULAR FILTR. RATE CALC > 60 mL/min (>60); GLUCOSE,RANDOM 104 mg/dL (70-110); POTASSIUM 3.9 mmol/L (3.5-5.1); SODIUM SERUM 141 mmol/L (136-145); UREA NITROGEN, BLOOD 12 mg/dL (7-18)
[2021-04-28 20:53] LABS: ALANINE AMINOTRANSFERASE 82 U/L (12-78); ALBUMIN 3.9 g/dL (3.4-5.0); ALKALINE PHOSPHATASE 107 U/L (46-116); ASPARTATE AMINOTRANSFERASE 28 U/L (15-37); BILIRUBIN,TOTAL 0.3 mg/dL (0.1-1.0); TOTAL PROTEIN, SERUM 7.7 g/dL (6.4-8.2); VALPROIC ACID 27 mcg/mL (50-100)
[2021-04-28 21:23] LABS: COVID AG,FIA SOURCE NASAL SWAB
[2021-04-29] MEDS ORDERED: DIVALPROEX SODIUM 500 MG ER TABLET PO ONE (16:30)
[2021-04-29] MEDS ORDERED: ARIPiprazole 10 MG TABLET PO ONE (16:30)
[2021-04-29] MEDS ORDERED: GABAPENTIN 300 MG CAPSULE PO ONE (16:30)
[2021-04-29] MEDS: DIVALPROEX SODIUM 500 MG DR TABLET PO SCH (17:11)
[2021-04-29] MEDS: LevETIRAcetam 500 MG TABLET PO SCH (17:11)
[2021-04-29] MEDS: GABAPENTIN 400 MG CAPSULE PO SCH (17:11)
[2021-04-29] MEDS: HALOPERIDOL 5 MG TABLET PO PRN (17:12)
[2021-04-29] MEDS: LORazepam 2 MG TABLET PO PRN (17:12)
[2021-04-30 01:09] VITALS: BP 100/60
[2021-04-30 02:16] VITALS: BP 100/62
[2021-04-30] MEDS ORDERED: INFLUENZA VIRUS VACCINE QVS 2021-22 (6MO+)/PF 60 MCG/0.5 ML SYRINGE IM. ONE (06:00)
[2021-04-30] MEDS ORDERED: PNEUMOCOCCAL VACCINE POLYVALENT 0.5 ML VIAL [PPSV23] IM. ONE (06:00)
[2021-04-30 07:12] LABS: CHOL/HDL RATIO 3.3 (4.2-7.3)
[2021-04-30] MEDS ORDERED: ACETAMINOPHEN 325 MG TABLET PO PRN (09:45)
[2021-04-30] MEDS: IBUPROFEN 400 MG TABLET PO PRN (09:53)
[2021-04-30 09:54] VITALS: BP 110/68
[2021-04-30] MEDS: GABAPENTIN 400 MG CAPSULE PO SCH ×2 (12:20→16:30)
[2021-04-30] MEDS ORDERED: DOCUSATE SODIUM 100 MG CAPSULE PO PRN (13:45)
[2021-04-30] MEDS ORDERED: MAGNESIUM HYDROXIDE SUSPENSION 30 ML UDCUP PO PRN (13:45)
[2021-04-30] MEDS ORDERED: PETROLATUM,WHITE 28 GM JELLY TP PRN (13:45)
[2021-04-30] MEDS ORDERED: GuaiFENesin/D-METHORPHAN [SUGAR-FREE] 200-20MG/10 ML SYRUP UDCUP PO PRN (13:45)
[2021-04-30] MEDS ORDERED: LOPERAMIDE HCL 2 MG CAPSULE PO PRN (13:45)
[2021-04-30] MEDS ORDERED: MAG HYDROX/AL HYDROX/SIMETH ES 30 ML SUSPENSION UDCUP PO PRN (13:45)
[2021-04-30] MEDS ORDERED: ONDANSETRON HCL 4 MG TABLET PO PRN (13:45)
[2021-04-30] MEDS ORDERED: ALBUTEROL SULFATE HFA 90 MCG/PUFF 8 GM INHALER IH PRN (13:45)
[2021-04-30] MEDS ORDERED: NICOTINE 14 MG/24 HOUR PATCH TD PRN (13:45)
[2021-04-30] MEDS ORDERED: CloNIDine HCL 0.1 MG TABLET PO PRN (13:45)
[2021-04-30 16:24] VITALS: BP 137/80
[2021-04-30] MEDS: DIVALPROEX SODIUM 500 MG DR TABLET PO SCH (16:30)
[2021-04-30] MEDS: LevETIRAcetam 500 MG TABLET PO SCH (16:30)
[2021-04-30] MEDS: ARIPiprazole 10 MG TABLET PO SCH (16:30)
[2021-04-30] MEDS: TraMADol HCL 50 MG TABLET PO PRN (17:20)
[2021-05-01 05:40] VITALS: BP 124/87
[2021-05-01] MEDS: GABAPENTIN 400 MG CAPSULE PO SCH ×3 (08:43→16:28)
[2021-05-01] MEDS: DIVALPROEX SODIUM 500 MG DR TABLET PO SCH ×2 (08:43→16:29)
[2021-05-01] MEDS: ARIPiprazole 10 MG TABLET PO SCH ×2 (08:44→16:29)
[2021-05-01] MEDS: LevETIRAcetam 500 MG TABLET PO SCH ×2 (08:44→16:29)
[2021-05-01] MEDS: LORazepam 2 MG TABLET PO PRN (08:49)
[2021-05-01] MEDS: TraMADol HCL 50 MG TABLET PO PRN ×2 (08:52→17:09)
[2021-05-01] MEDS: IBUPROFEN 400 MG TABLET PO PRN (14:25)
[2021-05-01 17:05] VITALS: BP 140/75
[2021-05-02 04:21] VITALS: BP 111/77
[2021-05-02] MEDS: TraMADol HCL 50 MG TABLET PO PRN ×2 (07:04→16:09)
[2021-05-02 08:06] VITALS: BP 114/76
[2021-05-02] MEDS: DIVALPROEX SODIUM 500 MG DR TABLET PO SCH ×2 (08:18→16:08)
[2021-05-02] MEDS: GABAPENTIN 400 MG CAPSULE PO SCH ×3 (08:18→16:08)
[2021-05-02] MEDS: HALOPERIDOL 5 MG TABLET PO PRN ×2 (08:18→16:08)
[2021-05-02] MEDS: LORazepam 2 MG TABLET PO PRN ×2 (08:18→16:08)
[2021-05-02] MEDS: LevETIRAcetam 500 MG TABLET PO SCH ×2 (08:18→16:08)
[2021-05-02] MEDS: ARIPiprazole 10 MG TABLET PO SCH ×2 (08:18→16:08)
[2021-05-02] MEDS: IBUPROFEN 400 MG TABLET PO PRN (10:09)
[2021-05-02 16:37] VITALS: BP 106/65
[2021-05-03 04:26] VITALS: BP 117/88
[2021-05-03] MEDS: IBUPROFEN 400 MG TABLET PO PRN (06:56)
[2021-05-03] MEDS: ARIPiprazole 10 MG TABLET PO SCH ×2 (08:03→16:11)
[2021-05-03] MEDS: DIVALPROEX SODIUM 500 MG DR TABLET PO SCH ×2 (08:03→16:12)
[2021-05-03] MEDS: LevETIRAcetam 500 MG TABLET PO SCH ×2 (08:03→16:12)
[2021-05-03] MEDS: GABAPENTIN 400 MG CAPSULE PO SCH ×3 (08:03→16:12)
[2021-05-03] MEDS: TraMADol HCL 50 MG TABLET PO PRN ×2 (08:04→16:12)
[2021-05-03] MEDS: LORazepam 2 MG TABLET PO PRN ×2 (08:05→16:12)
[2021-05-03 08:06] LABS: FREE T4 (FREE THYROXINE) 0.89 ng/dL (0.76-1.46); THYROID STIMULATING HORMONE 1.51 uIU/mL (0.36-3.74)
[2021-05-03 10:03] VITALS: BP 118/74
[2021-05-03 16:12] VITALS: BP 110/67
[2021-05-03] MEDS: HALOPERIDOL 5 MG TABLET PO PRN (16:12)
[2021-05-03 16:13] VITALS: BP 110/67
[2021-05-04 04:33] VITALS: BP 138/82
[2021-05-04] MEDS: DIVALPROEX SODIUM 500 MG DR TABLET PO SCH ×2 (08:01→16:00)
[2021-05-04] MEDS: LevETIRAcetam 500 MG TABLET PO SCH ×2 (08:01→16:00)
[2021-05-04] MEDS: GABAPENTIN 400 MG CAPSULE PO SCH ×3 (08:01→16:00)
[2021-05-04] MEDS: ARIPiprazole 10 MG TABLET PO SCH ×2 (08:01→16:00)
[2021-05-04] MEDS: LORazepam 2 MG TABLET PO PRN (08:01)
[2021-05-04] MEDS: HALOPERIDOL 5 MG TABLET PO PRN (08:01)
[2021-05-04 08:49] VITALS: BP 130/78
[2021-05-04 11:13] VITALS: BP 134/85
[2021-05-04] MEDS: IBUPROFEN 400 MG TABLET PO PRN ×2 (11:13→20:26)
[2021-05-04] MEDS: TraMADol HCL 50 MG TABLET PO PRN (12:12)
[2021-05-04 16:24] VITALS: BP 115/83
[2021-05-05] MEDS: TraMADol HCL 50 MG TABLET PO PRN ×3 (04:02→23:55)
[2021-05-05 05:35] VITALS: BP 133/93
[2021-05-05] MEDS: ARIPiprazole 10 MG TABLET PO SCH ×2 (08:03→16:22)
[2021-05-05] MEDS: DIVALPROEX SODIUM 500 MG DR TABLET PO SCH ×2 (08:03→16:23)
[2021-05-05] MEDS: GABAPENTIN 400 MG CAPSULE PO SCH ×3 (08:03→16:23)
[2021-05-05] MEDS: LevETIRAcetam 500 MG TABLET PO SCH ×2 (08:03→16:22)
[2021-05-05] MEDS: LORazepam 2 MG TABLET PO PRN (08:03)
[2021-05-05] MEDS: IBUPROFEN 400 MG TABLET PO PRN ×2 (08:04→18:53)
[2021-05-05 08:44] VITALS: BP 120/81
[2021-05-05 16:13] VITALS: BP 140/93
[2021-05-05 22:55] VITALS: BP 146/96
[2021-05-06 04:36] VITALS: BP 142/86
[2021-05-06] MEDS: IBUPROFEN 400 MG TABLET PO PRN ×3 (05:03→20:40)
[2021-05-06] MEDS: HALOPERIDOL 5 MG TABLET PO PRN (08:14)
[2021-05-06] MEDS: DIVALPROEX SODIUM 500 MG DR TABLET PO SCH ×2 (08:14→16:33)
[2021-05-06] MEDS: OMEGA-3/DHA/EPA/FISH OIL 1,000 MG CAPSULE PO SCH (08:14)
[2021-05-06] MEDS: GABAPENTIN 400 MG CAPSULE PO SCH ×3 (08:15→16:33)
[2021-05-06] MEDS: LevETIRAcetam 500 MG TABLET PO SCH ×2 (08:15→16:33)
[2021-05-06] MEDS: LORazepam 2 MG TABLET PO PRN (08:15)
[2021-05-06] MEDS: ARIPiprazole 10 MG TABLET PO SCH ×2 (08:15→16:33)
[2021-05-06 08:30] VITALS: BP 145/82
[2021-05-06] MEDS: TraMADol HCL 50 MG TABLET PO PRN ×2 (12:19→16:34)
[2021-05-06 16:07] VITALS: BP 132/84
[2021-05-06] MEDS: ZOLPIDEM TARTRATE 10 MG TABLET PO PRN (21:18)
[2021-05-07] MEDS: LORazepam 2 MG TABLET PO PRN ×3 (00:07→13:29)
[2021-05-07] MEDS: HALOPERIDOL 5 MG TABLET PO PRN (00:07)
[2021-05-07] MEDS: TraMADol HCL 50 MG TABLET PO PRN ×3 (00:07→15:31)
[2021-05-07 05:33] VITALS: BP 130/80
[2021-05-07 08:14] VITALS: BP 128/88
[2021-05-07] MEDS: OMEGA-3/DHA/EPA/FISH OIL 1,000 MG CAPSULE PO SCH (09:21)
[2021-05-07] MEDS: LevETIRAcetam 500 MG TABLET PO SCH ×2 (09:21→16:25)
[2021-05-07] MEDS: ARIPiprazole 10 MG TABLET PO SCH ×2 (09:21→16:25)
[2021-05-07] MEDS: GABAPENTIN 400 MG CAPSULE PO SCH ×3 (09:21→16:25)
[2021-05-07] MEDS: DIVALPROEX SODIUM 500 MG DR TABLET PO SCH ×2 (09:21→16:25)
[2021-05-07 16:25] VITALS: BP 126/88
[2021-05-07] MEDS: ZOLPIDEM TARTRATE 10 MG TABLET PO PRN (20:33)
[2021-05-07] MEDS: IBUPROFEN 400 MG TABLET PO PRN (23:01)
[2021-05-08] MEDS: TraMADol HCL 50 MG TABLET PO PRN ×2 (00:29→08:19)
[2021-05-08] MEDS: HALOPERIDOL 5 MG TABLET PO PRN (00:29)
[2021-05-08] MEDS: LORazepam 2 MG TABLET PO PRN ×2 (00:29→08:17)
[2021-05-08] MEDS: IBUPROFEN 400 MG TABLET PO PRN ×2 (03:43→04:39)
[2021-05-08] MEDS: LevETIRAcetam 500 MG TABLET PO SCH (08:14)
[2021-05-08] MEDS: ARIPiprazole 10 MG TABLET PO SCH (08:14)
[2021-05-08] MEDS: OMEGA-3/DHA/EPA/FISH OIL 1,000 MG CAPSULE PO SCH (08:14)
[2021-05-08] MEDS: DIVALPROEX SODIUM 500 MG DR TABLET PO SCH (08:14)
[2021-05-08] MEDS: GABAPENTIN 400 MG CAPSULE PO SCH (08:14)
[2021-05-08 10:11] LABS: GLUCOMETER DEV NAME(LOC) POC.BV
[2021-05-08] MEDS ORDERED: GABA-1201 PO (10:33)
[2021-05-08] MEDS ORDERED: ARIP10TA38 PO (10:33)
[2021-05-08] MEDS ORDERED: DIVA-112 PO (10:33)
[2021-05-08 10:41] VITALS: BP 130/78
[2021-05-08] MEDS ORDERED: LEVE500T20 PO (11:01)
== END 2021-05-08 11:30 | disposition home or self-care (01) | DRG 750 ==
LOC: EMS 19:48 → B3A 04-29 19:21
PROVIDERS: ADMIT Psychiatry & Neurology Child & Adolescent Psychiatry; ATTEND Psychiatry & Neurology Child & Adolescent Psychiatry
DX: F25.0 Schizoaffective disorder, bipolar type (principal); I10 Essential (primary) hypertension; G40.909 Epilepsy, unspecified, not intractable, without status epilepticus; D64.9 Anemia, unspecified; E03.9 Hypothyroidism, unspecified; F32.A Depression, unspecified; F41.9 Anxiety disorder, unspecified; J45.909 Unspecified asthma, uncomplicated; F17.210 Nicotine dependence, cigarettes, uncomplicated; Z20.822 Contact with and (suspected) exposure to COVID-19; Z59.00 Homelessness unspecified; Z91.19 Patient's noncompliance with other medical treatment and regimen
CPT/HCPCS: 80053; 80061; 80164; 84439; 84443; 85025; 87081; 99285; G0480

== ENCOUNTER 2021-05-10 20:55 | Inpatient (IN) | payer MEDICAID, OTHER ==
[~2021-05-10] VITALS: Ht 175.3 cm; Wt 118.0 kg
[~2021-05-10 20:55] MED LIST changes: -AMOX1TAB16 PO; +ARIP10TA38 PO; -ARIP15TA27 PO; -OLAN5TAB52 PO
[2021-05-10 21:52] LABS: EOSINOPHILS % (AUTO) 2.1 % (1.0-6.0); HEMATOCRIT 42.2 % (41-53); HEMOGLOBIN 14.3 g/dL (13.5-17.5); LYMPHOCYTES % (AUTO) 10.5 % (22.0-44.0); MEAN CORPUSCULAR HEMOGLOBIN 27.7 pg (26.0-34.0); MEAN CORPUSCULAR HGB CONC 33.9 G/dL (31.0-37.0); MEAN CORPUSCULAR VOLUME 82 fL (80-100); MONOCYTES # (AUTO) 0.8 K/uL (0.1-1.0); MONOCYTES % (AUTO) 8.4 % (2.0-9.0); NEUTROPHILS # (AUTO) 7.3 K/uL (1.8-7.7); PLATELET COUNT (AUTO) 244 K/uL (150-450); RED BLOOD CELL COUNT(AUTO) 5.18 MIL/uL (4.50-5.90); RED CELL DISTRIBUTION WIDTH 15.1 % (11.5-14.5)
[2021-05-10 21:55] LABS: ANION GAP 16 mmol/L (8-16); CARBON DIOXIDE 22 mmol/L (22-29); CHLORIDE 102 mmol/L (98-107); CREATININE 1.08 mg/dL (0.60-1.30); GLOMERULAR FILTR. RATE CALC > 60 mL/min (>60); GLUCOSE,RANDOM 126 mg/dL (70-110); POTASSIUM 3.8 mmol/L (3.5-5.1); SODIUM SERUM 140 mmol/L (136-145); UREA NITROGEN, BLOOD 27 mg/dL (7-18)
[2021-05-10 22:02] LABS: ALANINE AMINOTRANSFERASE 101 U/L (12-78); ALBUMIN 4.2 g/dL (3.4-5.0); ALKALINE PHOSPHATASE 126 U/L (46-116); ASPARTATE AMINOTRANSFERASE 59 U/L (15-37); BILIRUBIN,TOTAL 0.6 mg/dL (0.1-1.0); TOTAL PROTEIN, SERUM 8.4 g/dL (6.4-8.2); VALPROIC ACID 5 mcg/mL (50-100)
[2021-05-10 22:03] LABS: PHENYTOIN (DILANTIN) < 0.5 mcg/mL (10.0-20.0)
[2021-05-10] MEDS ORDERED: DiphenhydrAMINE HCL 50 MG/ML VIAL ONE (22:11)
[2021-05-10] MEDS ORDERED: HALOPERIDOL LACTATE 5 MG/ML VIAL ONE (22:11)
[2021-05-10] MEDS ORDERED: LORazepam 2 MG/ML VIAL ONE (22:11)
[2021-05-10] MEDS ORDERED: LORazepam 2 MG/ML VIAL IM ONE (22:15)
[2021-05-10] MEDS ORDERED: HALOPERIDOL LACTATE 5 MG/ML VIAL IM ONE (22:15)
[2021-05-10] MEDS ORDERED: DiphenhydrAMINE HCL 50 MG/ML VIAL IM ONE (22:15)
[2021-05-10 23:07] LABS: COVID AG,FIA SOURCE NASOPHARYNGEAL
[2021-05-10 23:15] LABS: APPEARANCE,URINE CLEAR (CLEAR); BILIRUBIN,URINE NEGATIVE (NEGATIVE); GLUCOSE, URINE (UA) NEGATIVE (NEGATIVE); KETONES,URINE =>150 mg/dL (NEGATIVE); LEUKOCYTE ESTERASE ,URINE NEGATIVE (NEGATIVE); NITRATE,URINE NEGATIVE (NEGATIVE); OCCULT BLOOD,URINE NEGATIVE (NEGATIVE); PH,URINE 5.5 (5.0-8.0); PROTEIN,URINE 30-70 mg/dL (NEGATIVE); SPECIFIC GRAVITIY, URINE 1.038 (1.003-1.030); UROBILINOGEN,URINE <=1.0 mg/dL (<=1.0)
[2021-05-10 23:20] LABS: AMPHET/METH SCREEN,URINE POSITIVE (NEGATIVE); BARBITURATE SCREEN, URINE NEGATIVE (NEGATIVE); BENZODIAZEPINES SCREEN,URINE NEGATIVE (NEGATIVE); CANNABINOID SCREEN,URINE NEGATIVE (NEGATIVE); COCAINE SCREEN,URINE NEGATIVE (NEGATIVE); METHADONE SCREEN, URINE NEGATIVE (NEGATIVE); OPIATE SCREEN,URINE NEGATIVE (NEGATIVE)
[2021-05-10 23:22] LABS: PHENCYCLIDINE SCREEN,URINE NEGATIVE (NEGATIVE)
[2021-05-11 03:10] VITALS: BP 130/82
[2021-05-11] MEDS ORDERED: PNEUMOCOCCAL VACCINE POLYVALENT 0.5 ML VIAL [PPSV23] IM. ONE (06:30)
[2021-05-11] MEDS ORDERED: INFLUENZA VIRUS VACCINE QVS 2021-22 (6MO+)/PF 60 MCG/0.5 ML SYRINGE IM. ONE (06:30)
[2021-05-11] MEDS: GABAPENTIN 400 MG CAPSULE PO SCH ×2 (13:29→16:56)
[2021-05-11] MEDS: HALOPERIDOL 5 MG TABLET PO PRN (13:29)
[2021-05-11] MEDS: LORazepam 2 MG TABLET PO PRN ×2 (13:30→17:46)
[2021-05-11] MEDS ORDERED: NICOTINE 14 MG/24 HOUR PATCH TD PRN (13:45)
[2021-05-11] MEDS ORDERED: ONDANSETRON HCL 4 MG TABLET PO PRN (13:45)
[2021-05-11] MEDS ORDERED: PETROLATUM,WHITE 28 GM JELLY TP PRN (13:45)
[2021-05-11] MEDS ORDERED: LOPERAMIDE HCL 2 MG CAPSULE PO PRN (13:45)
[2021-05-11] MEDS ORDERED: GuaiFENesin/D-METHORPHAN [SUGAR-FREE] 200-20MG/10 ML SYRUP UDCUP PO PRN (13:45)
[2021-05-11] MEDS ORDERED: CloNIDine HCL 0.1 MG TABLET PO PRN (13:45)
[2021-05-11] MEDS ORDERED: MAG HYDROX/AL HYDROX/SIMETH ES 30 ML SUSPENSION UDCUP PO PRN (13:45)
[2021-05-11] MEDS ORDERED: ALBUTEROL SULFATE HFA 90 MCG/PUFF 8 GM INHALER IH PRN (13:45)
[2021-05-11] MEDS ORDERED: DOCUSATE SODIUM 100 MG CAPSULE PO PRN (13:45)
[2021-05-11] MEDS ORDERED: MAGNESIUM HYDROXIDE SUSPENSION 30 ML UDCUP PO PRN (13:45)
[2021-05-11 16:38] VITALS: BP 108/69
[2021-05-11] MEDS: METOPROLOL TARTRATE 25 MG TABLET PO SCH (16:56)
[2021-05-11] MEDS: DIVALPROEX SODIUM 500 MG DR TABLET PO SCH (16:56)
[2021-05-11] MEDS: PHENYTOIN 50 MG CHEWABLE TABLET PO SCH (16:56)
[2021-05-11] MEDS: LevETIRAcetam 500 MG TABLET PO SCH (16:56)
[2021-05-11] MEDS: ARIPiprazole 10 MG TABLET PO SCH (16:56)
[2021-05-12 06:22] VITALS: BP 110/72
[2021-05-12] MEDS: GABAPENTIN 400 MG CAPSULE PO SCH ×3 (08:01→16:52)
[2021-05-12] MEDS: METOPROLOL TARTRATE 25 MG TABLET PO SCH ×2 (08:01→16:52)
[2021-05-12] MEDS: LevETIRAcetam 500 MG TABLET PO SCH ×2 (08:01→16:52)
[2021-05-12] MEDS: ARIPiprazole 10 MG TABLET PO SCH ×2 (08:02→16:52)
[2021-05-12] MEDS: HALOPERIDOL 5 MG TABLET PO PRN (08:02)
[2021-05-12] MEDS: DIVALPROEX SODIUM 500 MG DR TABLET PO SCH ×2 (08:02→16:52)
[2021-05-12] MEDS: LORazepam 2 MG TABLET PO PRN ×2 (08:02→16:52)
[2021-05-12] MEDS: PHENYTOIN 50 MG CHEWABLE TABLET PO SCH ×2 (08:34→16:55)
[2021-05-12 09:01] VITALS: BP 112/70
[2021-05-12 16:17] VITALS: BP 109/62
[2021-05-13 04:43] VITALS: BP 102/67
[2021-05-13] MEDS: DIVALPROEX SODIUM 500 MG DR TABLET PO SCH ×2 (10:04→17:09)
[2021-05-13] MEDS: LevETIRAcetam 500 MG TABLET PO SCH ×2 (10:04→17:09)
[2021-05-13] MEDS: ARIPiprazole 10 MG TABLET PO SCH ×2 (10:04→17:08)
[2021-05-13] MEDS: METOPROLOL TARTRATE 25 MG TABLET PO SCH ×2 (10:04→17:08)
[2021-05-13] MEDS: PHENYTOIN 50 MG CHEWABLE TABLET PO SCH ×2 (10:04→17:09)
[2021-05-13] MEDS: GABAPENTIN 400 MG CAPSULE PO SCH ×3 (10:04→17:09)
[2021-05-13 11:48] VITALS: BP 110/68
[2021-05-13 16:12] VITALS: BP 140/97
[2021-05-13] MEDS: HALOPERIDOL 5 MG TABLET PO PRN (17:08)
[2021-05-13] MEDS: IBUPROFEN 400 MG TABLET PO PRN (17:08)
[2021-05-13] MEDS: LORazepam 2 MG TABLET PO PRN (17:09)
[2021-05-13] MEDS: ACETAMINOPHEN 325 MG TABLET PO PRN (22:06)
[2021-05-14] MEDS: IBUPROFEN 400 MG TABLET PO PRN (04:04)
[2021-05-14 04:14] VITALS: BP 110/67
[2021-05-14 08:00] VITALS: BP 118/74
[2021-05-14] MEDS: ARIPiprazole 10 MG TABLET PO SCH ×2 (09:00→16:08)
[2021-05-14] MEDS: GABAPENTIN 400 MG CAPSULE PO SCH ×3 (09:18→16:08)
[2021-05-14] MEDS: DIVALPROEX SODIUM 500 MG DR TABLET PO SCH ×2 (09:18→16:08)
[2021-05-14] MEDS: LevETIRAcetam 500 MG TABLET PO SCH ×2 (09:19→16:08)
[2021-05-14] MEDS: METOPROLOL TARTRATE 25 MG TABLET PO SCH ×2 (09:19→16:08)
[2021-05-14] MEDS: PHENYTOIN 50 MG CHEWABLE TABLET PO SCH ×2 (09:19→16:08)
[2021-05-14 16:09] VITALS: BP 140/92
[2021-05-14] MEDS: TraMADol HCL 50 MG TABLET PO PRN ×2 (16:21→21:18)
[2021-05-14] MEDS: ZOLPIDEM TARTRATE 10 MG TABLET PO PRN (21:18)
[2021-05-15] MEDS: LORazepam 2 MG TABLET PO PRN ×4 (00:08→22:46)
[2021-05-15] MEDS: IBUPROFEN 400 MG TABLET PO PRN ×3 (00:08→23:04)
[2021-05-15] MEDS: HALOPERIDOL 5 MG TABLET PO PRN ×3 (00:08→16:06)
[2021-05-15 00:16] VITALS: BP 123/78
[2021-05-15] MEDS: TraMADol HCL 50 MG TABLET PO PRN ×3 (06:28→16:06)
[2021-05-15] MEDS: ARIPiprazole 10 MG TABLET PO SCH ×2 (08:46→16:06)
[2021-05-15] MEDS: GABAPENTIN 400 MG CAPSULE PO SCH ×3 (08:46→16:06)
[2021-05-15] MEDS: METOPROLOL TARTRATE 25 MG TABLET PO SCH ×2 (08:46→16:06)
[2021-05-15] MEDS: LevETIRAcetam 500 MG TABLET PO SCH ×2 (08:46→16:06)
[2021-05-15] MEDS: DIVALPROEX SODIUM 500 MG DR TABLET PO SCH ×2 (08:46→16:06)
[2021-05-15] MEDS: PHENYTOIN 50 MG CHEWABLE TABLET PO SCH ×2 (08:47→16:06)
[2021-05-15 16:47] VITALS: BP 132/73
[2021-05-15] MEDS: ZOLPIDEM TARTRATE 10 MG TABLET PO PRN (20:43)
[2021-05-16 04:50] VITALS: BP 117/68
[2021-05-16] MEDS: LORazepam 2 MG TABLET PO PRN ×2 (06:28→17:31)
[2021-05-16] MEDS: HALOPERIDOL 5 MG TABLET PO PRN ×2 (06:28→17:31)
[2021-05-16] MEDS: TraMADol HCL 50 MG TABLET PO PRN ×2 (06:28→18:54)
[2021-05-16] MEDS: GABAPENTIN 400 MG CAPSULE PO SCH ×3 (08:32→17:30)
[2021-05-16] MEDS: METOPROLOL TARTRATE 25 MG TABLET PO SCH ×2 (08:32→17:30)
[2021-05-16] MEDS: LevETIRAcetam 500 MG TABLET PO SCH ×2 (08:32→17:31)
[2021-05-16] MEDS: ARIPiprazole 10 MG TABLET PO SCH ×2 (08:32→17:29)
[2021-05-16] MEDS: DIVALPROEX SODIUM 500 MG DR TABLET PO SCH ×2 (08:32→17:30)
[2021-05-16] MEDS: PHENYTOIN 50 MG CHEWABLE TABLET PO SCH ×2 (08:34→17:34)
[2021-05-16 08:42] LABS: HEMOGLOBIN A1C 5.4 % (3.8-5.6)
[2021-05-16 08:57] LABS: THYROID STIMULATING HORMONE 3.51 uIU/mL (0.36-3.74)
[2021-05-16 16:34] VITALS: BP 106/69
[2021-05-17 00:44] VITALS: BP 123/81
[2021-05-17] MEDS: LORazepam 2 MG TABLET PO PRN ×3 (00:44→16:54)
[2021-05-17] MEDS: ZOLPIDEM TARTRATE 10 MG TABLET PO PRN (00:45)
[2021-05-17] MEDS: LevETIRAcetam 500 MG TABLET PO SCH ×2 (08:46→16:54)
[2021-05-17] MEDS: DIVALPROEX SODIUM 500 MG DR TABLET PO SCH ×2 (08:46→16:54)
[2021-05-17] MEDS: PHENYTOIN 50 MG CHEWABLE TABLET PO SCH ×2 (08:46→16:54)
[2021-05-17] MEDS: GABAPENTIN 400 MG CAPSULE PO SCH ×3 (08:46→16:54)
[2021-05-17] MEDS: METOPROLOL TARTRATE 25 MG TABLET PO SCH ×2 (08:46→16:54)
[2021-05-17] MEDS: ARIPiprazole 10 MG TABLET PO SCH ×2 (08:46→16:54)
[2021-05-17] MEDS: TraMADol HCL 50 MG TABLET PO PRN ×2 (08:57→12:27)
[2021-05-17 11:07] VITALS: BP 124/78
[2021-05-17] MEDS ORDERED: LORazepam 2 MG/ML VIAL ONE (11:25)
[2021-05-17] MEDS ORDERED: HALOPERIDOL LACTATE 5 MG/ML VIAL ONE (11:25)
[2021-05-17] MEDS ORDERED: DiphenhydrAMINE HCL 50 MG/ML VIAL ONE (11:25)
[2021-05-17] MEDS ORDERED: HALOPERIDOL LACTATE 5 MG/ML VIAL IM ONE (11:45)
[2021-05-17] MEDS ORDERED: LORazepam 2 MG/ML VIAL IM ONE (11:45)
[2021-05-17] MEDS ORDERED: DiphenhydrAMINE HCL 50 MG/ML VIAL IM ONE (11:45)
[2021-05-17 16:13] VITALS: BP 132/70
[2021-05-17] MEDS: HALOPERIDOL 5 MG TABLET PO PRN (16:54)
[2021-05-18 00:56] VITALS: BP 107/71
[2021-05-18] MEDS: ZOLPIDEM TARTRATE 10 MG TABLET PO PRN ×2 (02:03→22:09)
[2021-05-18] MEDS: TraMADol HCL 50 MG TABLET PO PRN ×3 (06:11→18:03)
[2021-05-18 08:06] VITALS: BP 126/72
[2021-05-18] MEDS: GABAPENTIN 400 MG CAPSULE PO SCH ×3 (08:14→16:12)
[2021-05-18] MEDS: LevETIRAcetam 500 MG TABLET PO SCH ×2 (08:14→16:12)
[2021-05-18] MEDS: LORazepam 2 MG TABLET PO PRN ×3 (08:14→22:09)
[2021-05-18] MEDS: DIVALPROEX SODIUM 500 MG DR TABLET PO SCH ×2 (08:14→16:15)
[2021-05-18] MEDS: METOPROLOL TARTRATE 25 MG TABLET PO SCH ×2 (08:14→16:12)
[2021-05-18] MEDS: ARIPiprazole 10 MG TABLET PO SCH ×2 (08:14→16:12)
[2021-05-18] MEDS: HALOPERIDOL 5 MG TABLET PO PRN ×2 (08:14→16:12)
[2021-05-18] MEDS: MULTIVITAMINS WITH MINERALS, THERAPEUTIC TABLET PO SCH (08:14)
[2021-05-18] MEDS: PHENYTOIN 50 MG CHEWABLE TABLET PO SCH ×2 (08:15→16:16)
[2021-05-18 16:45] VITALS: BP 122/97
[2021-05-19 00:25] VITALS: BP 148/101
[2021-05-19] MEDS: HALOPERIDOL 5 MG TABLET PO PRN ×3 (05:04→16:34)
[2021-05-19] MEDS: LORazepam 2 MG TABLET PO PRN ×3 (05:05→16:34)
[2021-05-19] MEDS: TraMADol HCL 50 MG TABLET PO PRN ×2 (05:05→18:19)
[2021-05-19 08:16] LABS: GLUCOMETER DEV NAME(LOC) POC.BV
[2021-05-19] MEDS: GABAPENTIN 400 MG CAPSULE PO SCH ×3 (08:32→16:34)
[2021-05-19] MEDS: DIVALPROEX SODIUM 500 MG DR TABLET PO SCH ×2 (08:32→16:33)
[2021-05-19] MEDS: ARIPiprazole 10 MG TABLET PO SCH ×2 (08:32→16:33)
[2021-05-19] MEDS: PHENYTOIN 50 MG CHEWABLE TABLET PO SCH ×2 (08:32→16:33)
[2021-05-19] MEDS: METOPROLOL TARTRATE 25 MG TABLET PO SCH ×2 (08:32→16:34)
[2021-05-19] MEDS: LevETIRAcetam 500 MG TABLET PO SCH ×2 (08:32→16:34)
[2021-05-19] MEDS: MULTIVITAMINS WITH MINERALS, THERAPEUTIC TABLET PO SCH (08:32)
[2021-05-19 14:05] VITALS: BP 137/98
[2021-05-19 16:39] VITALS: BP 126/87
[2021-05-19 18:19] VITALS: BP 130/89
[2021-05-19 23:52] VITALS: BP 133/75
[2021-05-20] MEDS: LORazepam 2 MG TABLET PO PRN ×4 (00:10→20:17)
[2021-05-20] MEDS: ZOLPIDEM TARTRATE 10 MG TABLET PO PRN ×2 (00:10→20:17)
[2021-05-20] MEDS: HALOPERIDOL 5 MG TABLET PO PRN ×3 (00:10→16:14)
[2021-05-20] MEDS: IBUPROFEN 400 MG TABLET PO PRN (00:11)
[2021-05-20] MEDS: TraMADol HCL 50 MG TABLET PO PRN (03:31)
[2021-05-20 05:24] VITALS: BP 124/72
[2021-05-20] MEDS: PHENYTOIN 50 MG CHEWABLE TABLET PO SCH ×2 (08:15→16:12)
[2021-05-20] MEDS: LevETIRAcetam 500 MG TABLET PO SCH ×2 (08:15→16:12)
[2021-05-20] MEDS: GABAPENTIN 400 MG CAPSULE PO SCH ×3 (08:15→16:11)
[2021-05-20] MEDS: DIVALPROEX SODIUM 500 MG DR TABLET PO SCH ×2 (08:15→16:11)
[2021-05-20] MEDS: METOPROLOL TARTRATE 25 MG TABLET PO SCH ×2 (08:15→16:14)
[2021-05-20] MEDS: MULTIVITAMINS WITH MINERALS, THERAPEUTIC TABLET PO SCH (08:15)
[2021-05-20] MEDS: ARIPiprazole 10 MG TABLET PO SCH ×2 (08:15→16:12)
[2021-05-20 10:03] VITALS: BP 141/90
[2021-05-20 16:09] VITALS: BP 133/80
[2021-05-21] MEDS ORDERED: DiphenhydrAMINE HCL 50 MG/ML VIAL ONE (00:20)
[2021-05-21] MEDS ORDERED: LORazepam 2 MG/ML VIAL ONE (00:20)
[2021-05-21] MEDS ORDERED: HALOPERIDOL LACTATE 5 MG/ML VIAL ONE (00:20)
[2021-05-21] MEDS ORDERED: HALOPERIDOL LACTATE 5 MG/ML VIAL IM ONE (00:30)
[2021-05-21] MEDS ORDERED: LORazepam 2 MG/ML VIAL IM ONE (00:30)
[2021-05-21] MEDS ORDERED: DiphenhydrAMINE HCL 50 MG/ML VIAL IM ONE (00:30)
[2021-05-21 00:38] VITALS: BP 130/80
[2021-05-21] MEDS: TraMADol HCL 50 MG TABLET PO PRN ×3 (01:16→18:43)
[2021-05-21] MEDS: HALOPERIDOL 5 MG TABLET PO PRN ×3 (02:10→12:55)
[2021-05-21] MEDS: LORazepam 2 MG TABLET PO PRN ×3 (02:11→12:55)
[2021-05-21] MEDS: IBUPROFEN 400 MG TABLET PO PRN (02:11)
[2021-05-21 08:16] VITALS: BP 133/76
[2021-05-21] MEDS: ARIPiprazole 10 MG TABLET PO SCH ×2 (08:44→17:16)
[2021-05-21] MEDS: GABAPENTIN 400 MG CAPSULE PO SCH ×3 (08:45→17:17)
[2021-05-21] MEDS: PHENYTOIN 50 MG CHEWABLE TABLET PO SCH ×2 (08:45→17:17)
[2021-05-21] MEDS: MULTIVITAMINS WITH MINERALS, THERAPEUTIC TABLET PO SCH (08:45)
[2021-05-21] MEDS: LevETIRAcetam 500 MG TABLET PO SCH ×2 (08:45→17:17)
[2021-05-21] MEDS: DIVALPROEX SODIUM 500 MG DR TABLET PO SCH ×2 (08:45→17:17)
[2021-05-21] MEDS: METOPROLOL TARTRATE 25 MG TABLET PO SCH ×2 (08:46→17:17)
[2021-05-21 16:12] VITALS: BP 129/87
[2021-05-21] MEDS: ZOLPIDEM TARTRATE 10 MG TABLET PO PRN (20:41)
[2021-05-22 00:26] VITALS: BP 130/78
[2021-05-22] MEDS: LORazepam 2 MG TABLET PO PRN ×3 (03:07→16:22)
[2021-05-22] MEDS: TraMADol HCL 50 MG TABLET PO PRN ×3 (03:07→16:30)
[2021-05-22] MEDS: HALOPERIDOL 5 MG TABLET PO PRN ×3 (03:07→16:22)
[2021-05-22] MEDS: METOPROLOL TARTRATE 25 MG TABLET PO SCH ×2 (08:35→16:22)
[2021-05-22] MEDS: PHENYTOIN 50 MG CHEWABLE TABLET PO SCH ×2 (08:35→16:22)
[2021-05-22] MEDS: DIVALPROEX SODIUM 500 MG DR TABLET PO SCH ×2 (08:35→16:22)
[2021-05-22] MEDS: MULTIVITAMINS WITH MINERALS, THERAPEUTIC TABLET PO SCH (08:35)
[2021-05-22] MEDS: LevETIRAcetam 500 MG TABLET PO SCH ×2 (08:35→16:22)
[2021-05-22] MEDS: GABAPENTIN 400 MG CAPSULE PO SCH ×3 (08:35→16:22)
[2021-05-22] MEDS: ARIPiprazole 10 MG TABLET PO SCH ×2 (08:35→16:21)
[2021-05-22 09:22] VITALS: BP 120/64
[2021-05-22] MEDS: ACETAMINOPHEN 325 MG TABLET PO PRN (11:10)
[2021-05-22 16:12] VITALS: BP_SYST 106
[2021-05-22 22:11] LABS: GLUCOMETER DEV NAME(LOC) POC.BV
[2021-05-23] MEDS: LORazepam 2 MG TABLET PO PRN ×2 (00:24→04:06)
[2021-05-23] MEDS: HALOPERIDOL 5 MG TABLET PO PRN ×2 (00:24→04:06)
[2021-05-23] MEDS: TraMADol HCL 50 MG TABLET PO PRN (00:24)
[2021-05-23] MEDS: ZOLPIDEM TARTRATE 10 MG TABLET PO PRN (00:26)
[2021-05-23 00:27] VITALS: BP 129/89
[2021-05-23] MEDS: IBUPROFEN 400 MG TABLET PO PRN (04:06)
[2021-05-23] MEDS: METOPROLOL TARTRATE 25 MG TABLET PO SCH (08:37)
[2021-05-23] MEDS: ARIPiprazole 10 MG TABLET PO SCH (08:37)
[2021-05-23] MEDS: DIVALPROEX SODIUM 500 MG DR TABLET PO SCH (08:37)
[2021-05-23] MEDS: LevETIRAcetam 500 MG TABLET PO SCH (08:37)
[2021-05-23] MEDS: GABAPENTIN 400 MG CAPSULE PO SCH (08:37)
[2021-05-23] MEDS: MULTIVITAMINS WITH MINERALS, THERAPEUTIC TABLET PO SCH (08:38)
[2021-05-23] MEDS: PHENYTOIN 50 MG CHEWABLE TABLET PO SCH (08:38)
[2021-05-23 09:21] VITALS: BP 130/84
== END 2021-05-23 09:30 | disposition home or self-care (01) | DRG 750 ==
LOC: EMS 21:05 → B3A 05-11 01:00
PROVIDERS: ADMIT Psychiatry & Neurology Child & Adolescent Psychiatry; ATTEND Psychiatry & Neurology Child & Adolescent Psychiatry
DX: F25.1 Schizoaffective disorder, depressive type (principal); R45.851 Suicidal ideations; G40.909 Epilepsy, unspecified, not intractable, without status epilepticus; F25.0 Schizoaffective disorder, bipolar type; G89.29 Other chronic pain; J45.909 Unspecified asthma, uncomplicated; Z59.00 Homelessness unspecified; E03.9 Hypothyroidism, unspecified; F32.A Depression, unspecified; F17.210 Nicotine dependence, cigarettes, uncomplicated; F16.10 Hallucinogen abuse, uncomplicated; Z20.822 Contact with and (suspected) exposure to COVID-19; F15.10 Other stimulant abuse, uncomplicated; Z71.51 Drug abuse counseling and surveillance of drug abuser; Z28.21 Immunization not carried out because of patient refusal
CPT/HCPCS: 71045; 80053; 80164; 80185; 81003; 83036; 84443; 85025; 87081; 99285; G0480; J1200; J1630; J2060; 36415-L1; 36415-TC

== ENCOUNTER 2021-05-24 22:13 | Inpatient (IN) | payer MEDICAID, OTHER ==
[~2021-05-24] VITALS: Ht 177.8 cm; Wt 115.0 kg
[2021-05-24] MEDS ORDERED: LORazepam 2 MG/ML VIAL IM ONE (23:00)
[2021-05-24] MEDS ORDERED: DiphenhydrAMINE HCL 50 MG/ML VIAL IM ONE (23:00)
[2021-05-24] MEDS ORDERED: HALOPERIDOL LACTATE 5 MG/ML VIAL IM ONE (23:00)
[2021-05-24] MEDS ORDERED: ZOLPIDEM TARTRATE 10 MG TABLET PO PRN (23:30)
[2021-05-24 23:32] LABS: COVID AG,FIA SOURCE NASOPHARYNGEAL
[2021-05-24 23:55] LABS: APPEARANCE,URINE CLEAR (CLEAR); BILIRUBIN,URINE NEGATIVE (NEGATIVE); GLUCOSE, URINE (UA) NEGATIVE (NEGATIVE); KETONES,URINE NEGATIVE (NEGATIVE); LEUKOCYTE ESTERASE ,URINE NEGATIVE (NEGATIVE); NITRATE,URINE NEGATIVE (NEGATIVE); OCCULT BLOOD,URINE NEGATIVE (NEGATIVE); PROTEIN,URINE TRACE mg/dL (NEGATIVE); SPECIFIC GRAVITIY, URINE 1.021 (1.003-1.030); UROBILINOGEN,URINE <=1.0 mg/dL (<=1.0)
[2021-05-25] LABS: AMPHET/METH SCREEN,URINE POSITIVE (NEGATIVE); BARBITURATE SCREEN, URINE NEGATIVE (NEGATIVE); BENZODIAZEPINES SCREEN,URINE NEGATIVE (NEGATIVE); CANNABINOID SCREEN,URINE NEGATIVE (NEGATIVE); COCAINE SCREEN,URINE NEGATIVE (NEGATIVE); METHADONE SCREEN, URINE NEGATIVE (NEGATIVE); OPIATE SCREEN,URINE NEGATIVE (NEGATIVE)
[2021-05-25 00:05] LABS: PHENCYCLIDINE SCREEN,URINE NEGATIVE (NEGATIVE)
[2021-05-25 00:37] LABS: HEMOGLOBIN 14.9 g/dL (13.5-17.5); MEAN CORPUSCULAR VOLUME 82 fL (80-100)
[2021-05-25 00:41] LABS: ANION GAP 11 mmol/L (8-16); CALCIUM, TOTAL 8.8 mg/dL (8.8-10.5); CARBON DIOXIDE 25 mmol/L (22-29); CHLORIDE 106 mmol/L (98-107); CREATININE 0.88 mg/dL (0.60-1.30); GLOMERULAR FILTR. RATE CALC > 60 mL/min (>60); GLUCOSE,RANDOM 148 mg/dL (70-110); POTASSIUM 3.6 mmol/L (3.5-5.1); SODIUM SERUM 142 mmol/L (136-145); UREA NITROGEN, BLOOD 16 mg/dL (7-18)
[2021-05-25 00:42] LABS: BASOPHILS % (AUTO) 0.9 % (0.0-2.0); HEMATOCRIT 44.5 % (41-53); LYMPHOCYTES # (AUTO) 1.5 K/uL (1.0-4.8); LYMPHOCYTES % (AUTO) 19.6 % (22.0-44.0); MEAN CORPUSCULAR HEMOGLOBIN 27.6 pg (26.0-34.0); MEAN CORPUSCULAR HGB CONC 33.6 G/dL (31.0-37.0); MONOCYTES # (AUTO) 0.6 K/uL (0.1-1.0); MONOCYTES % (AUTO) 7.2 % (2.0-9.0); NEUTROPHILS # (AUTO) 5.3 K/uL (1.8-7.7); NEUTROPHILS % (AUTO) 69.3 % (40.0-70.0); RED BLOOD CELL COUNT(AUTO) 5.42 MIL/uL (4.50-5.90); RED CELL DISTRIBUTION WIDTH 15.2 % (11.5-14.5)
[2021-05-25 00:48] LABS: ALANINE AMINOTRANSFERASE 53 U/L (12-78); ALBUMIN 3.8 g/dL (3.4-5.0); ALKALINE PHOSPHATASE 122 U/L (46-116); ASPARTATE AMINOTRANSFERASE 25 U/L (15-37); BILIRUBIN,TOTAL 0.4 mg/dL (0.1-1.0); TOTAL PROTEIN, SERUM 7.9 g/dL (6.4-8.2)
[2021-05-25 00:58] LABS: PLATELET COUNT (AUTO) 222 K/uL (150-450)
[2021-05-25] MEDS ORDERED: PNEUMOCOCCAL VACCINE POLYVALENT 0.5 ML VIAL [PPSV23] IM. ONE (04:30)
[2021-05-25] MEDS ORDERED: INFLUENZA VIRUS VACCINE QVS 2021-22 (6MO+)/PF 60 MCG/0.5 ML SYRINGE IM. ONE (04:30)
[2021-05-25] MEDS: HALOPERIDOL 5 MG TABLET PO PRN (08:12)
[2021-05-25] MEDS: LevETIRAcetam 500 MG TABLET PO SCH ×2 (08:13→18:36)
[2021-05-25] MEDS: LORazepam 2 MG TABLET PO PRN (08:13)
[2021-05-25 08:42] VITALS: BP 122/88
[2021-05-25] MEDS: METOPROLOL TARTRATE 25 MG TABLET PO SCH ×2 (08:42→18:41)
[2021-05-25] MEDS: PHENYTOIN 50 MG CHEWABLE TABLET PO SCH ×2 (08:42→18:37)
[2021-05-25] MEDS ORDERED: IBUPROFEN 400 MG TABLET PO SCH (09:15)
[2021-05-25] MEDS ORDERED: IBUPROFEN 400 MG TABLET PO PRN ×2 (09:45→15:45)
[2021-05-25] MEDS: MAG HYDROX/AL HYDROX/SIMETH ES 30 ML SUSPENSION UDCUP PO PRN (09:54)
[2021-05-25] MEDS: GABAPENTIN 400 MG CAPSULE PO SCH ×2 (12:17→18:36)
[2021-05-25] MEDS ORDERED: GuaiFENesin/D-METHORPHAN [SUGAR-FREE] 200-20MG/10 ML SYRUP UDCUP PO PRN (15:45)
[2021-05-25] MEDS ORDERED: CloNIDine HCL 0.1 MG TABLET PO PRN (15:45)
[2021-05-25] MEDS ORDERED: DOCUSATE SODIUM 100 MG CAPSULE PO PRN (15:45)
[2021-05-25] MEDS ORDERED: ALBUTEROL SULFATE HFA 90 MCG/PUFF 8 GM INHALER IH PRN (15:45)
[2021-05-25] MEDS ORDERED: PETROLATUM,WHITE 28 GM JELLY TP PRN (15:45)
[2021-05-25] MEDS ORDERED: NICOTINE 14 MG/24 HOUR PATCH TD PRN (15:45)
[2021-05-25] MEDS ORDERED: ONDANSETRON HCL 4 MG TABLET PO PRN (15:45)
[2021-05-25] MEDS ORDERED: MAGNESIUM HYDROXIDE SUSPENSION 30 ML UDCUP PO PRN (15:45)
[2021-05-25] MEDS ORDERED: LOPERAMIDE HCL 2 MG CAPSULE PO PRN (15:45)
[2021-05-25] MEDS ORDERED: ACETAMINOPHEN 325 MG TABLET PO PRN (15:45)
[2021-05-25] MEDS: ARIPiprazole 10 MG TABLET PO SCH (18:36)
[2021-05-25] MEDS: DIVALPROEX SODIUM 500 MG DR TABLET PO SCH (18:36)
[2021-05-25] MEDS: TraMADol HCL 50 MG TABLET PO PRN (20:30)
[2021-05-25 20:33] VITALS: BP 129/72
[2021-05-26 01:55] VITALS: BP 126/70
[2021-05-26] MEDS: MAG HYDROX/AL HYDROX/SIMETH ES 30 ML SUSPENSION UDCUP PO PRN ×2 (07:02→08:06)
[2021-05-26] MEDS: LORazepam 2 MG TABLET PO PRN ×2 (08:07→13:09)
[2021-05-26] MEDS: HALOPERIDOL 5 MG TABLET PO PRN ×2 (08:07→13:09)
[2021-05-26] MEDS: DIVALPROEX SODIUM 500 MG DR TABLET PO SCH ×2 (08:07→17:27)
[2021-05-26] MEDS: GABAPENTIN 400 MG CAPSULE PO SCH ×3 (08:07→17:27)
[2021-05-26] MEDS: ARIPiprazole 10 MG TABLET PO SCH ×2 (08:07→17:27)
[2021-05-26] MEDS: LevETIRAcetam 500 MG TABLET PO SCH ×2 (08:07→17:27)
[2021-05-26] MEDS: METOPROLOL TARTRATE 25 MG TABLET PO SCH ×2 (08:08→17:27)
[2021-05-26] MEDS: TraMADol HCL 50 MG TABLET PO PRN ×2 (08:08→22:00)
[2021-05-26] MEDS: PHENYTOIN 50 MG CHEWABLE TABLET PO SCH ×2 (08:08→17:27)
[2021-05-26 08:29] VITALS: BP 122/87
[2021-05-26 17:15] VITALS: BP 123/77
[2021-05-26 22:00] VITALS: BP 127/84
[2021-05-26 22:59] VITALS: BP 125/78
[2021-05-27] MEDS: MAG HYDROX/AL HYDROX/SIMETH ES 30 ML SUSPENSION UDCUP PO PRN ×2 (04:03→07:41)
[2021-05-27] MEDS: TraMADol HCL 50 MG TABLET PO PRN (07:41)
[2021-05-27] MEDS: ARIPiprazole 10 MG TABLET PO SCH ×2 (07:54→16:31)
[2021-05-27] MEDS: GABAPENTIN 400 MG CAPSULE PO SCH ×3 (07:54→16:31)
[2021-05-27] MEDS: LORazepam 2 MG TABLET PO PRN ×2 (07:55→17:00)
[2021-05-27] MEDS: LevETIRAcetam 500 MG TABLET PO SCH ×2 (07:55→16:30)
[2021-05-27] MEDS: PHENYTOIN 50 MG CHEWABLE TABLET PO SCH ×2 (07:55→16:31)
[2021-05-27] MEDS: DIVALPROEX SODIUM 500 MG DR TABLET PO SCH ×2 (07:55→16:30)
[2021-05-27] MEDS: METOPROLOL TARTRATE 25 MG TABLET PO SCH ×2 (07:55→16:31)
[2021-05-27 16:27] VITALS: BP 102/56
[2021-05-27] MEDS: HALOPERIDOL 5 MG TABLET PO PRN (17:00)
[2021-05-27 19:14] LABS: APPEARANCE,URINE CLEAR (CLEAR); BILIRUBIN,URINE NEGATIVE (NEGATIVE); GLUCOSE, URINE (UA) NEGATIVE (NEGATIVE); LEUKOCYTE ESTERASE ,URINE NEGATIVE (NEGATIVE); NITRATE,URINE NEGATIVE (NEGATIVE); OCCULT BLOOD,URINE NEGATIVE (NEGATIVE); PROTEIN,URINE TRACE mg/dL (NEGATIVE); SPECIFIC GRAVITIY, URINE 1.021 (1.003-1.030); UROBILINOGEN,URINE <=1.0 mg/dL (<=1.0)
[2021-05-27 20:03] VITALS: BP 91/51
[2021-05-28 00:20] LABS: COVID AG,FIA SOURCE NASAL SWAB
== END 2021-05-28 00:30 | disposition home or self-care (01) | DRG 750 ==
LOC: EMS 22:14 → 3EC 05-25 00:59
PROVIDERS: ADMIT Psychiatry & Neurology Child & Adolescent Psychiatry; ATTEND Psychiatry & Neurology Child & Adolescent Psychiatry
DX: F25.1 Schizoaffective disorder, depressive type (principal); R45.850 Homicidal ideations; R45.851 Suicidal ideations; E86.0 Dehydration; E03.9 Hypothyroidism, unspecified; F15.10 Other stimulant abuse, uncomplicated; G40.909 Epilepsy, unspecified, not intractable, without status epilepticus; G89.29 Other chronic pain; J45.909 Unspecified asthma, uncomplicated; F17.210 Nicotine dependence, cigarettes, uncomplicated; Z91.14 Patient's other noncompliance with medication regimen
CPT/HCPCS: 71046; 80053; 81003; 83036; 85025; 87081; 90686; 90732; 99285; G0480; J1200; J1630; J2060; 36415-L1; 36415-TC; G0008